=== PATIENT | male | born 1935 | race Caucasian/White ===

== ENCOUNTER 2017-08-04 16:13 | Inpatient (IN) | payer OTHER, MEDICARE ==
[~2017-08-04] VITALS: Ht 177.8 cm; Wt 86.5 kg
[~2017-08-04 16:13] MED LIST: ALUM320S3 PO; CHOL1CAP6 PO; IPRAAER INH; LORTA5 PO; OMEP20TA39 PO; PLAV75TA PO; SIMV20 PO; TAB-TAB PO; TERA2CAP3 PO; TRAM50TA PO
[2017-08-04 16:28] VITALS: BP 145/71; PULSE 63; RESP 18; TEMP 98.2; O2SAT 98
--- NOTE | 2017-08-04 16:37 | PD ---
HPI Chief Complaint: Chest Pain Time Seen by Provider: 16:33 Travel History International Travel<30 days: No Contact w/Intl Traveler<30days: No Traveled to known affect area: No History of Present Illness [facility] of [facility] (COMPUTER READ IT INFERIOR STEMI DESPITE THE FACT THAT PATIENT HAD NO COMPLAINTS AT THE TIME)... PATIENT WAS JUST GETTING ROUTINE TESTS INCLUDING EKG, SHORTLY AFTER "A LOT OF EXCITEMENT" HE FELT A MINOR DISCOMFORT WHICH HE RATED 1/10, Upon arrival to the ED pt denies CP, A&Ox3, hemoydnamically stable....UPON FURTHER QUESTIONING PATIENT DEVELOPED THIS SYMPTOMS AFTER EATING COOKIE, FELT LIKE IT WAS STUCK AT HIS MID CHEST THEN AFTER 30MIN SYMPTOMS RESOLVED [facility]CP [facility]X: CVA, HTN, HYPERCHOL, HIATAL HERNIA. PFSH Past Medical History Hx Anticoagulant Therapy: Yes Arthritis: Yes Blood Disorders: No Cancer: No Cardiovascular Problems: Yes (Pt takes Plavix at home ) Cerebrovascular Accident: Yes Coronary Artery Disease: Yes Diminished Hearing: Yes (Hard of hearing) Endocrine: No Gastrointestinal Disorders: Yes (GERD) GERD: Yes Genitourinary: Yes (BPH) Hiatal Hernia: Yes Hypertension: Yes Immune Disorder: No Musculoskeletal: Yes Neurologic: Yes (CVA 1.5 years ago ) Psychiatric: No Reproductive: No Respiratory: No Triglycerides - High: Yes ?: Not Past Surgical History Tonsillectomy: Yes Other Surgery: Yes (Hemmorhoidectomy) Social History Alcohol Use: No Tobacco Use: Yes (0.5 ppd) Substance Use: No Allergies-Medications (Allergen,Severity, Reaction): Coded Allergies: wheat (Unverified Allergy, Intermediate, Rash, 04/29/17) Reported Meds & Prescriptions Reported Meds & Active Scripts Active Reported Aluminum Hydroxide Liq Gel (Aluminum Hydroxide) 320 Mg/5 Ml Susp 640 Mg PO Q4H PRN Take after meals and at bedtime. Maximum of 3,840 mg (60 ml)/24 hrs. Vitamin D-3 (Cholecalciferol) 1,000 Unit Cap 1 Cap PO DAILY Plavix (Clopidogrel Bisulfate) 75 Mg Tab 75 Mg PO DAILY Fanshawe 5-325 Tablet (Hydrocodone/Acetaminophen) 5 Mg-325 Mg Tablet 1 Tab PO Q6HR PRN Combivent Respimat Inh (Ipratropium-Albuterol Inh) 20-100 Fpc/Act Aero 1 Puff INH QID PRN Multiple Vitamin 1 Tab 1 Tab PO DAILY Tramadol (Tramadol HCl) 50 Mg Tab 50 Mg PO TID PRN Omeprazole 20 Mg Tab 20 Mg PO BIDAC Terazosin (Terazosin HCl) 2 Mg Cap 2 Mg PO HS Simvastatin 20 Mg Tab 20 Mg PO DAILY Review of Systems Except as stated in HPI: all other systems reviewed are Neg General / Constitutional: No: Fever Eyes: No: Visual changes HENT: No: Headaches Cardiovascular: Positive: Chest Pain or Discomfort (NOW RESOLVED) Respiratory: No: Shortness of Breath Gastrointestinal: No: Abdominal Pain Genitourinary: No: Dysuria Musculoskeletal: No: Pain Skin: No Rash Neurologic: No: Weakness Psychiatric: No: Depression Endocrine: No: Polydipsia Hematologic/Lymphatic: No: Easy Bruising Physical Exam Narrative GENERAL: SKIN: Warm and dry. HEAD: Atraumatic. Normocephalic. EYES: Pupils equal and round. No scleral icterus. No injection or drainage. ENT: No nasal bleeding or discharge. Mucous membranes pink and moist. NECK: Trachea midline. No JVD. CARDIOVASCULAR: Regular rate and rhythm. RESPIRATORY: No accessory muscle use. Clear to auscultation. Breath sounds equal bilaterally. GASTROINTESTINAL: Abdomen soft, non-tender, nondistended. MUSCULOSKELETAL: Extremities without clubbing, cyanosis, or edema. No obvious deformities. NEUROLOGICAL: Awake and alert. No obvious cranial nerve deficits. Motor grossly within normal limits. Five out of 5 muscle strength in the arms and legs. Normal speech. PSYCHIATRIC: Appropriate mood and affect; insight and judgment normal. Data Data Last Documented VS Vital Signs Date Time Temp Pulse Resp B/P (MAP) Pulse Ox O2 Delivery O2 Flow Rate FiO2 08/04/17 16:50 98 Room Air 08/04/17 16:50 18 08/04/17 16:28 98.2 63 Orders Orders Electrocardiogram (08/04/17 16:33) B-Type Natriuretic Peptide (08/04/17 16:33) Ckmb (Isoenzyme) Profile (08/04/17 16:33) Complete Blood Count With Diff (08/04/17 16:33) Comprehensive Metabolic Panel (08/04/17 16:33) Prothrombin Time / Inr (Pt) (08/04/17 16:33) Act Partial Throm Time (Ptt) (08/04/17 16:33) Troponin I (08/04/17 16:33) Lipase (08/04/17 16:33) Chest, Single Ap (08/04/17 16:33) Ecg Monitoring (08/04/17 16:33) Bilateral Bp Monitoring (08/04/17 16:33) Iv Access Insert/Monitor (08/04/17 16:33) Oximetry (08/04/17 16:33) Oxygen Administration (08/04/17 16:33) Admit Order (Ed Use Only) (08/04/17 18:24) CKMB (08/04/17 18:00) CKMB% (08/04/17 18:00) Labs Laboratory Tests Test 08/04/17 16:44 08/04/17 18:00 White Blood Count 8.6 TH/MM3 Red Blood Count 4.26 MIL/MM3 Hemoglobin 12.2 GM/DL Hematocrit 37.0 % Mean Corpuscular Volume 86.8 FL Mean Corpuscular Hemoglobin 28.7 PG Mean Corpuscular Hemoglobin Concent 33.1 % Red Cell Distribution Width 15.2 % Platelet Count 288 TH/MM3 Mean Platelet Volume 8.5 FL Neutrophils (%) (Auto) 66.8 % Lymphocytes (%) (Auto) 25.5 % Monocytes (%) (Auto) 6.1 % Eosinophils (%) (Auto) 1.1 % Basophils (%) (Auto) 0.5 % Neutrophils # (Auto) 5.8 TH/MM3 Lymphocytes # (Auto) 2.2 TH/MM3 Monocytes # (Auto) 0.5 TH/MM3 Eosinophils # (Auto) 0.1 TH/MM3 Basophils # (Auto) 0.0 TH/MM3 CBC Comment DIFF FINAL Differential Comment B-Type Natriuretic Peptide 38 PG/ML Blood Urea Nitrogen 14 MG/DL Creatinine 1.31 MG/DL Random Glucose 92 MG/DL Total Protein 7.7 GM/DL Albumin 3.3 GM/DL Calcium Level 8.7 MG/DL Alkaline Phosphatase 71 U/L Aspartate Amino Transf (AST/SGOT) 64 U/L Alanine Aminotransferase (ALT/SGPT) 28 U/L Total Bilirubin 0.7 MG/DL Sodium Level 139 MEQ/L Potassium Level 5.1 MEQ/L Chloride Level 110 MEQ/L Carbon Dioxide Level 22.5 MEQ/L Anion Gap 7 MEQ/L Estimat Glomerular Filtration Rate 52 ML/MIN Total Creatine Kinase 338 U/L Creatine Kinase MB 12.1 NG/ML Creatine Kinase MB % 3.6 % Troponin I 1.79 NG/ML Lipase 35 U/L MDM Medical Decision Making Medical Screen Exam Complete: Yes Emergency Medical Condition: Yes Medical Record Reviewed: Yes Interpretation(s) NSR, 68, ST DEPRESSION ON I/AVL, NO STEMI PATTERN Differential Diagnosis STEMI V NONSTEMI V PNA V PTX V Narrative Course FIRST SET OF CARDIAC ENZYMES POSITIVE, EKG ABNL FINDINGS REQUIRING FURTHER INVESTIGATION, PATIENT WILL BE ADMITTED TO [facility] FOR FURTHER CARE AND EVALUATION. Diagnosis Primary Impression: Non-STEMI (non-ST elevated myocardial infarction) Admitting Information Admitting Physician Requests: Admit Daquan Dougherty MD Aug 04, 2017 16:37
[2017-08-04 16:50] VITALS: RESP 18; O2SAT 98
--- NOTE | 2017-08-04 16:59 | RADRPT ---
EXAM DATE/TIME: 08/04/2017 16:35 [place] COMPARISON: No previous studies available for comparison. INDICATIONS : Chest pain MEDICAL HISTORY : Cardiovascular disease. SURGICAL HISTORY : None. ENCOUNTER: Initial ACUITY: 2 days PAIN SCORE: 2/10 LOCATION: chest FINDINGS: A single view of the chest demonstrates the lungs to be symmetrically aerated without evidence of mas s, infiltrate or effusion. The cardiomediastinal contours are unremarkable. Osseous structures are intact. CONCLUSION: No acute disease. Matteo Zavala Jr., MD on August 04, 2017 at 16:58 Board Certified Radiologist. This report was verified electronically.
[2017-08-04 17:02] LABS: AUTOMATED NEUTROPHIL # 5.8 TH/MM3 (1.8-7.7); BASOPHIL % 0.5 % (0.0-2.0); EOSINOPHIL # 0.1 TH/MM3 (0-0.4); EOSINOPHIL % 1.1 % (0.0-4.0); HEMO FLAGS DIFF FINAL; LYMPH % 25.5 % (9.0-44.0); LYMPHOCYTE # 2.2 TH/MM3 (1.0-4.8); MEAN CELL VOLUME 86.8 FL (80.0-100.0); MEAN CORPUSCULAR HEMOGLOBIN 28.7 PG (27.0-34.0); MEAN CORPUSCULAR HGB CONC 33.1 % (32.0-36.0); MONO % 6.1 % (0.0-8.0); NEUT % 66.8 % (16.0-70.0); PLATELET COUNT 288 TH/MM3 (150-450); RED BLOOD COUNT 4.26 MIL/MM3 (4.50-5.90); RED CELL DISTRIBUTION WIDTH 15.2 % (11.6-17.2); WHITE BLOOD COUNT 8.6 TH/MM3 (4.0-11.0)
[2017-08-04 19:10] VITALS: O2SAT 97
[2017-08-04] MEDS ORDERED: SODIUM CHLORIDE 0.9% FLUSH 10 ML FLUSH IV FLUSH PRN ×2 (19:15→22:15)
[2017-08-04] MEDS ORDERED: ASPIRIN 81 MG CHEW TAB PO ONE (19:15)
[2017-08-04 19:31] VITALS: BP 121/67; PULSE 55; RESP 22; TEMP 97.4; O2SAT 97
[2017-08-04 20:19] LABS: APTT (PATIENT) 24.4 SEC (24.3-30.1); INTERNATIONAL NORMALIZED RATIO 1.1 RATIO; PROTHROMBIN TIME - PATIENT 11.9 SEC (9.8-11.6)
[2017-08-04 20:25] LABS: ALKALINE PHOSPHATASE 71 U/L (45-117); ALT (GPT) 28 U/L (12-78); ANION GAP 7 MEQ/L (5-15); BICARBONATE 22.5 MEQ/L (21.0-32.0); BLOOD UREA NITROGEN 14 MG/DL (7-18); CHLORIDE 110 MEQ/L (98-107); CREATINE KINASE 338 U/L (39-308); GLOMERULAR FILTRATION RATE 52 ML/MIN (>89); SODIUM (NA) 139 MEQ/L (136-145); TOTAL BILIRUBIN ADULT 0.7 MG/DL (0.2-1.0)
[2017-08-04 20:27] LABS: AST (GOT) 64 U/L (15-37); POTASSIUM 5.1 MEQ/L (3.5-5.1)
[2017-08-04 20:42] LABS: CKMB 12.1 NG/ML (0.5-3.6)
[2017-08-04] MEDS ORDERED: SODIUM CHLORIDE 0.9% FLUSH 10 ML FLUSH IV FLUSH SCH (21:00)
[2017-08-04] MEDS ORDERED: HEPARIN-D5W 25,000 U/250 ML 250 ML IV PRN (22:15)
[2017-08-04] MEDS ORDERED: HEPARIN SODIUM - IV 10,000 UNITS/10 ML VIAL IV PUSH ONE (22:15)
--- NOTE | 2017-08-04 22:48 | HHI.HP ---
[facility] Admission Diagnosis CP R/O IA Diagnoses: Travel History International Travel<30 Days: No Contact w/Intl Traveler <30 Da: No Traveled to Known Affected Are: No History of Present Illness 82-year-old male with a past medical history of arthritis, CVA on Plavix, hyperlipidemia, GERD, BPH presents with a three-day history of chest pressure and tightness. The patient was waiting for his hearing aids at the [place] when he noticed his chest pressure returning. EKG done at that time was read by the computer as acute IA with ST elevation. On review, EKG significant for ST depression in aVL without ST elevations. Initial troponin came back elevated at 1.79. The patient is not having active chest pain and states his chest pain was resolved prior to his arrival in the ED. He reports his chest pain is postprandial in nature and he thought it was secondary to his hiatal hernia. Repeat EKG significant for ST depression in leads I, aVL. Second troponin increased to 2.87. The patient denies any complaints at this time including chest pain or shortness of breath. Review of Systems Denies fever or chills Denies blurry vision, otorrhea, rhinorrhea Denies sore throat and cough No chest pain, palpitations, shortness of breath No abdominal pain Denies constipation/diarrhea/nausea/vomiting Denies muscle pain/weakness No rashes Past Family Social History Past Medical History Hyperlipidemia History of CVA on Plavix BPH GERD COPD Osteoarthritis Past Surgical History Tonsillectomy in childhood Carotid endarterectomy Reported Medications Reported Meds & Active Scripts Active Allergies: Coded Allergies: wheat (Unverified Allergy, Intermediate, Rash, 04/29/17) Family History Father of liver cancer. No family history of diabetes or coronary artery disease. Social History Smokes a half a pack per day 70 years. Denies alcohol or illicit drugs. Physical Exam Vital Signs Vital Signs Date Time Temp Pulse Resp B/P (MAP) Pulse Ox O2 Delivery O2 Flow Rate FiO2 08/04/17 19:31 97.4 55 22 121/67 (85) 97 08/04/17 19:28 08/04/17 19:10 97 08/04/17 16:50 98 Room Air 08/04/17 16:50 18 98 Room Air 08/04/17 16:28 98.2 63 18 145/71 (95) 98 Room Air 08/04/17 16:28 61 18 98 Room Air Physical Exam GENERAL: Elderly male sitting up in bed. SKIN: No rashes, ecchymoses or lesions. Cool and dry. HEAD: Atraumatic. Normocephalic. No temporal or scalp tenderness. EYES: Pupils equal round and reactive. Extraocular motions intact. No scleral icterus. No injection or drainage. ENT: Nose without bleeding, purulent drainage or septal hematoma. Throat without erythema, tonsillar hypertrophy or exudate. Uvula midline. Airway patent. NECK: Trachea midline. No JVD or lymphadenopathy. Supple, nontender, no meningeal signs. CARDIOVASCULAR: Regular rate and rhythm without murmurs, gallops, or rubs. RESPIRATORY: Clear to auscultation. Breath sounds equal bilaterally. No wheezes , rales, or rhonchi. GASTROINTESTINAL: Abdomen soft, non-tender, nondistended. No hepato-splenomegaly , or palpable masses. No guarding. MUSCULOSKELETAL: Extremities without clubbing, cyanosis, or edema. No joint tenderness, effusion, or edema noted. No calf tenderness. Negative Homans sign bilaterally. NEUROLOGICAL: Awake and alert. Cranial nerves II through XII intact. Motor and sensory grossly within normal limits. Normal speech. Laboratory Laboratory Tests Test 08/04/17 16:44 08/04/17 18:00 08/04/17 19:00 08/04/17 19:50 White Blood Count 8.6 Red Blood Count 4.26 Hemoglobin 12.2 Hematocrit 37.0 Mean Corpuscular Volume 86.8 Mean Corpuscular Hemoglobin 28.7 Mean Corpuscular Hemoglobin Concent 33.1 Red Cell Distribution Width 15.2 Platelet Count 288 Mean Platelet Volume 8.5 Neutrophils (%) (Auto) 66.8 Lymphocytes (%) (Auto) 25.5 Monocytes (%) (Auto) 6.1 Eosinophils (%) (Auto) 1.1 Basophils (%) (Auto) 0.5 Neutrophils # (Auto) 5.8 Lymphocytes # (Auto) 2.2 Monocytes # (Auto) 0.5 Eosinophils # (Auto) 0.1 Basophils # (Auto) 0.0 CBC Comment DIFF FINAL Differential Comment B-Type Natriuretic Peptide 38 Blood Urea Nitrogen 14 Creatinine 1.31 Random Glucose 92 Total Protein 7.7 Albumin 3.3 Calcium Level 8.7 Alkaline Phosphatase 71 Aspartate Amino Transf (AST/SGOT) 64 Alanine Aminotransferase (ALT/SGPT) 28 Total Bilirubin 0.7 Sodium Level 139 Potassium Level 5.1 Chloride Level 110 Carbon Dioxide Level 22.5 Anion Gap 7 Estimat Glomerular Filtration Rate 52 Total Creatine Kinase 338 294 Creatine Kinase MB 12.1 Creatine Kinase MB % 3.6 Troponin I 1.79 2.87 Lipase 35 Prothrombin Time 11.9 Prothromb Time International Ratio 1.1 Activated Partial Thromboplast Time 24.4 Result Diagram: 08/04/17 1644 08/04/17 1800 Giovany VTE Risk Assessment Giovany VTE Risk Assessment: Mod/High Risk (score >= 2) Caprini Risk Assessment Model Point Value = 1 Point Value = 2 Point Value = 3 Point Value = 5 Age 41-60 Minor surgery BMI > 25 kg/m2 Swollen legs Varicose veins or History of unexplained or recurrent spontaneous Oral contraceptives or hormone replacement Sepsis (< 1 month) Serious lung disease, including pneumonia (< 1 month) Abnormal pulmonary function Acute myocardial infarction Congestive heart failure (< 1 month) History of inflammatory bowel disease Medical patient at bed rest Age 61-74 Arthroscopic surgery Major open surgery (> 45 min) Laparoscopic surgery (> 45 min) Malignancy Confined to bed (> 72 hours) Immobilizing plaster cast Central venous access Age >= 75 History of VTE Family history of VTE Factor V Leiden Prothrombin [id number] Lupus anticoagulant Anticardiolipin antibodies Elevated serum homocysteine Heparin-induced thrombocytopenia Other congenital or acquired thrombophilia Stroke (< 1 month) Elective arthroplasty Hip, pelvis, or leg fracture Acute spinal cord injury (< 1 month) Prophylaxis Regimen Total Risk Factor Score Risk Level Prophylaxis Regimen 0-1 Low Early ambulation 2 Moderate Order ONE of the following: *Sequential Compression Device (SCD) *Heparin 5000 units SQ BID 3-4 Higher Order ONE of the following medications: *Heparin 5000 units SQ TID *Enoxaparin/Lovenox 40 mg SQ daily (WT < 150 kg, CrCl > 30 mL/min) *Enoxaparin/Lovenox 30 mg SQ daily (WT < 150 kg, CrCl > 10-29 mL/min) *Enoxaparin/Lovenox 30 mg SQ BID (WT < 150 kg, CrCl > 30 mL/min) AND/OR *Sequential Compression Device (SCD) 5 or more Highest Order ONE of the following medications: *Heparin 5000 units SQ TID (Preferred with Epidurals) *Enoxaparin/Lovenox 40 mg SQ daily (WT < 150 kg, CrCl > 30 mL/min) *Enoxaparin/Lovenox 30 mg SQ daily (WT < 150 kg, CrCl > 10-29 mL/min) *Enoxaparin/Lovenox 30 mg SQ BID (WT < 150 kg, CrCl > 30 mL/min) AND *Sequential Compression Device (SCD) Assessment and Plan Assessment and Plan 82-year-old male presents to the emergency department with chest pain and elevated troponins. 1. NSTEMI Cardiology consulted, appreciate recommendations Repeat EKG showed ST segment depressions in leads I, aVL - reviewed by me Heparin drip Metoprolol Nothing by mouth 2. CKD Creatinine 1.31, baseline 1.2-1.3 Monitor 3. History of CVA anticoagulated on Plavix Hold Plavix in anticipation of Cardiac catheterization tomorrow Heparin as above 4. HLD/BPH/GERD Continue home medications FEN NPO Electrolytes: monitor and replete prn Heparin ggt Physician Certification 2 Midnight Certification Type: Admission for Inpatient Services Order for Inpatient Services The services are ordered in accordance with Medicare regulations or non- Medicare payer requirements, as applicable. In the case of services not specified as inpatient-only, they are appropriately provided as inpatient services in accordance with the 2-midnight benchmark. Estimated LOS (days): 2 2 days is the estimated time the patient will need to remain in the hospital, assuming treatment plan goals are met and no additional complications. Post-Hospital Plan: Not yet determined Rosa Coulter MD Aug 04, 2017 22:48
[2017-08-04 23:00] VITALS: PULSE 71; PULSE 98
[2017-08-04] MEDS ORDERED: TERA2CAP3 PO (23:04)
[2017-08-04] MEDS ORDERED: MULTTAB67 PO (23:04)
[2017-08-04] MEDS ORDERED: PLAV75TA29 PO (23:04)
[2017-08-04] MEDS ORDERED: IPRAAER INH (23:04)
[2017-08-04] MEDS ORDERED: D31000CA3 PO (23:04)
[2017-08-04] MEDS ORDERED: NORC5TAB PO (23:04)
[2017-08-04] MEDS ORDERED: TRAM50TA PO (23:04)
[2017-08-04] MEDS ORDERED: ALUM320S2 PO (23:04)
[2017-08-04] MEDS ORDERED: SIMV20TA PO (23:04)
[2017-08-04] MEDS ORDERED: OMEP20TA93 PO (23:04)
[2017-08-04] MEDS ORDERED: HEPARIN 25,000 UNITS-D5W 250 ML - PREMIX IV PRN (23:45)
[2017-08-04 23:51] VITALS: BP 106/61; PULSE 62; RESP 22; TEMP 97.4; O2SAT 95
[2017-08-05] VITALS (27 sets, daily range): BP systolic 101–153; BP diastolic 57–92; PULSE 48–79; RESP 17–20; TEMP 97.7–98.2; O2SAT 93–97
[2017-08-05 00:32] LABS: CKMB 35.1 NG/ML (0.5-3.6)
[2017-08-05] MEDS ORDERED: HEPARIN SODIUM - IV 10,000 UNITS/10 ML VIAL IV PUSH PRN ×2 (04:15)
[2017-08-05 05:52] LABS: APTT (PATIENT) 59.2 SEC (24.3-30.1); INTERNATIONAL NORMALIZED RATIO 1.1 RATIO; PROTHROMBIN TIME - PATIENT 12.6 SEC (9.8-11.6)
[2017-08-05 05:54] LABS: HEMATOCRIT 34.3 % (39.0-51.0); MEAN CELL VOLUME 86.5 FL (80.0-100.0); MEAN CORPUSCULAR HEMOGLOBIN 28.7 PG (27.0-34.0); MEAN CORPUSCULAR HGB CONC 33.1 % (32.0-36.0); PLATELET COUNT 234 TH/MM3 (150-450); RED BLOOD COUNT 3.96 MIL/MM3 (4.50-5.90); RED CELL DISTRIBUTION WIDTH 15.2 % (11.6-17.2); REVIEW FLAG FINAL; WHITE BLOOD COUNT 8.9 TH/MM3 (4.0-11.0)
--- NOTE | 2017-08-05 07:26 | EKG ---
Date Performed: 08/04/2017 Time Performed: 19:49:23 PTAGE: 82 years EKG: SINUS BRADYCARDIA MINIMAL ST DEPRESSION BORDERLINE ECG Since PREVIOUS TRACING , no significant change noted PREVIOUS TRACIN08/04/2017 16.22 DOCTOR: Chanelle Lozada Interpretating Date/Time 08/05/2017 07:25:08
[2017-08-05] MEDS: PANTOPRAZOLE SOD 20 MG DELAYED RELEASE TAB PO SCH ×2 (08:07→17:38)
[2017-08-05] MEDS: METOPROLOL TARTRATE 25 MG TAB PO SCH ×2 (08:07→21:00)
[2017-08-05] MEDS ORDERED: SODIUM CHLORIDE 0.9% FLUSH 10 ML FLUSH IV FLUSH SCH (09:00)
[2017-08-05] MEDS ORDERED: PRAVASTATIN SOD 40 MG TAB PO SCH (09:00)
--- NOTE | 2017-08-05 11:00 | HHI.PR ---
Subjective Remarks Nursing denies any deterioration since last night. The patient states that he is chest pain-free. No nausea vomiting. Objective Vital Signs Date Time Temp Pulse Resp B/P (MAP) Pulse Ox O2 Delivery O2 Flow Rate FiO2 08/05/17 08:00 97.8 54 17 102/62 (75) 95 08/05/17 07:00 49 08/05/17 06:00 52 08/05/17 05:00 58 08/05/17 04:50 98.0 54 18 110/68 (82) 95 08/05/17 04:00 52 08/05/17 03:00 50 08/05/17 02:00 57 08/05/17 01:12 97.7 54 20 120/76 (91) 95 08/05/17 01:00 55 08/05/17 00:00 54 08/04/17 23:51 97.4 62 22 106/61 (76) 95 08/04/17 23:00 71 08/04/17 23:00 98 08/04/17 19:31 97.4 55 22 121/67 (85) 97 08/04/17 19:28 08/04/17 19:10 97 08/04/17 16:50 98 Room Air 08/04/17 16:50 18 98 Room Air 08/04/17 16:28 98.2 63 18 145/71 (95) 98 Room Air 08/04/17 16:28 61 18 98 Room Air I/O 08/04/17 08/04/17 08/04/17 08/05/17 08/05/17 08/05/17 07:00 15:00 23:00 07:00 15:00 23:00 Intake Total 150 ml Output Total 150 ml Balance 0 ml Intake Oral 100 ml IV Total 50 ml Output Urine Total 150 ml Result Diagram: 08/05/17 0445 08/04/17 1800 Objective Remarks Very faint heart sounds, clear lungs bilaterally otherwise, no cyanosis, no clubbing, no labored breathing A/P Assessment and Plan 82-year-old male presents to the emergency department with chest pain and elevated troponins. 1. NSTEMI Cardiology following, plans for catheterization today, continue Lopressor and aspirin and statin heparin 2. CKD Creatinine 1.31, baseline 1.2-1.3 stable 3. History of CVA anticoagulated on Plavix Hold Plavix in anticipation of Cardiac catheterization today Heparin as above 4. HLD/BPH/GERD Continue home medications FEN NPO Electrolytes: monitor and replete prn Heparin ggt Fidel Umana MD Aug 05, 2017 11:00
[2017-08-05] MEDS: ATORVASTATIN 40 MG TAB PO SCH (11:48)
[2017-08-05] MEDS ORDERED: HEPARIN-NS/PF INJ 1,500 ML ONE (13:01)
[2017-08-05] MEDS ORDERED: MIDAZOLAM HCL 2 MG/2 ML VIAL ONE (13:01)
[2017-08-05] MEDS ORDERED: VERAPAMIL HCL 5 MG/2 ML VIAL ONE (13:01)
[2017-08-05] MEDS ORDERED: HEPARIN SODIUM - IV 10,000 UNITS/10 ML VIAL ONE (13:01)
[2017-08-05] MEDS ORDERED: NITROGLYCERIN INJ 5 ML ONE (13:01)
--- NOTE | 2017-08-05 13:56 | CATHPROC ---
[facility] HIS Report Study Information Study Number Admission Scheduled Start Study Start [id number] Aug 04 2017 10:09PM 08/05/2017 Aug 05 2017 12:54PM [place] [facility] Cardiac Catheterization Admit Source Facility Department Emergency department [facility] Physician and Clinical Staff Initial MD Sue, Carlos Electronics System Mechanicramon Reynaga RN, Tunde Electronics System MechanicMartha Teresa BSN Recorder Radha Canchola,KAREN TECHWero Scrub [place]la [place],RT(R) Procedures Performed Procedure Location (Site) Vessel Name Coronary Angiograms LCA Left Coronary Coronary Angiograms RCA Right Coronary Equipment Time Geophysics Professor Description Size Mfg Part Number Used/Scraped TRANSDUCER, TRUWAVE [id number] 12:57 BELL PEREYRA * Used W/STOCKCOCK *[id number] *[id number] *[id number] 12:57 Hively PACK, CCL CUSTOM * Used *[id number] 12:57 Hively SUPPORT, ARTERIAL ADULT 26471 *[id number] Used BAND, RADIAL COMPRESSION TR [id number] 13:33 [employer] MEDICAL 24CM Used SHORT 24 *[id number] 12:57 [employer] WIRE, EXCHANGE 260CM 3MMJ 260CM Used *[id number] 12:57 NAMIC MANIFOLD, 4 PORT * Used *[id number] 12:57 NYCOMED OMNIPAQUE, 350 MG, 150ML 150ML [id number] Used [id number] 12:57 [employer] BLANKET,WARM AIR CCL * Used *[id number] SHEATH, FR6 TRANSRADIAL [id number] 12:57 [employer] MEDICAL FR 6 Used SLENDER 10CM *[id number] History: Allergies Allergy Reaction wheat Rash History: Risk Factors Family History of Hypertension Dyslipidemia Previous ME Previous Heart Failure Premature CAD Yes Yes No No No Prior Valve Prior PCI Prior CABG Surgery No No No Cerebrovascular Peripheral Artery Chronic Lung On Dialysis Diabetes Disease Disease Disease No Yes No No No History: Symptoms/Diagnosis Selection Items Chest pain History: Stress Tests Stress or Imaging Studies Performed No History: Other Disease Selection Items Gerd History: Other Current Smoker Method Packs a Day Years Used Pack Years Yes Cigarettes 1 70 70 Labs Hgb (g/dl) Hct (%) RBC (MIL/MM3) WBC (l/cumm) Platelets (thousands) 11.60-17.00 35.00-51.00 4.00-5.90 4.00-11.00 150.00-450.00 12.2 37 4.2 8.6 288 Glucose (mg/dl) BUN (mg/dl) Creatinine (mg/dl) BUN:Creatinine (1:x) 74.00-106.00 7.00-18.00 0.50-1.30 10.00-20.00 92 14 1.3 10.8 Na (meq/l) K (meq/l) Cl (meq/l) CO2 (mmol/L) 136.00-145.00 3.50-5.10 98.00-107.00 21.00-32.00 139 5.1 110 22.5 PT (sec) PTT (sec) INR (PTT:PT) 9.80-11.60 24.30-30.10 0.90-1.10 11.9 24.4 1.1 Troponin I (ng/ml) CPK (u/l) CPK-MB (ng/ML) 0.02-0.05 26.00-308.00 0.50-3.60 14.1 474 35.1 Medication Medication Total Dose (Bolus/Oral) Medication Total Dosage/Unit 1% XYLOCAINE 20 mL FENTANYL 25 mcg OXYGEN 2 l/min RADIAL COCKTAIL 5 mL (Bolus) VERSED 0.5 mg Medications (Bolus/Oral) Medication Time Given Dosage/Unit Administered By Reason FENTANYL 08/05/2017 1:19:13 PM 25 mcg Tunde Reynaga RN 25 mcg FENTANYL given in lab by Tunde Reynaga RN in Left Forearm via Peripheral IV. Ordered by Carlos Denise VERSED 08/05/2017 1:20:25 PM 0.5 mg Tunde Reynaga RN 0.5 mg VERSED given in lab by Tunde Reynaga RN in Left Forearm via Peripheral IV. Ordered by Carlos Sue 1% XYLOCAINE 08/05/2017 1:21:06 PM 20 mL Carlos Sue 20 mL 1% XYLOCAINE given in lab by Carlos Sue in Right Radial via Subcutaneous. Ordered by Carlos Ortiz RADIAL COCKTAIL 08/05/2017 1:21:45 PM 5 mL (Bolus) Carlos Sue 5 mL (Bolus) RADIAL COCKTAIL given in lab by Carlos Sue in Right Radial via Radial. Using [S olution Name]. Ordered by Carlos Sue NTG 200mcg, Verapamil 2.5mg, Heparin 3400 Units OXYGEN 08/05/2017 1:29:54 PM 2 l/min Tunde Reynaga RN 2 l/min OXYGEN given in lab by Tunde Reynaga RN via Nasal. Ordered by Carlos Sue Medication (Drip) Medication Time Given Dosage/Unit Concentration/Unit Diluent (ml) Solution 08/05/2017 12:54:16 IV Solutions 0 mL (IV) 500 NaCl .9 PM IV Solutions given in lab by Tunde Reynaga RN in Left Forearm via Peripheral IV. Pump/Drip Flow = 20 m l/hr using NaCl .9. Ordered by Carlos Sue Initial Case Assessment Cardiovascular HR Rhythm NIBP Chest Pain 66 sr 160/84 0 Circulatory - Right Pulses Dorsalis Pedis Femoral Radial 2 2 2 Scale (0,1,2,3,4,d) Scale (0,1,2,3,4,d) Neurological State Oriented to time-place- Alert Moves all extremities person Respiration - General Respiration Rate SpO2 (%) (B/min) 20 99 Final Case Assessment Cardiovascular HR Rhythm NIBP Chest Pain 55 sr 109/63 0 Circulatory - Right Pulses Dorsalis Pedis Femoral Radial 2 2 2 Scale (0,1,2,3,4,d) Scale (0,1,2,3,4,d) Neurological State Oriented to time-place- Alert Moves all extremities person Respiration - General Respiration Rate (B/min) 16 Chronological Log Time Study Chronological Log 12:54:00 Patient arrived via Bed. 12:54:01 Patient Name, D.O.B, / Armband Verified By R.N. Vitals capture started with the following parameters, Patient=Adult, Interval=5 min, Initial Pr cbzhgc=299 mmHg, 12:54:03 Deflation Rate=5 mmHg, Cuff placed on Left Arm 12:54:04 Consent signed by the physician and the patient and verified by the [facility] staff. 12:54:05 Pre-op and post- op instructions given; patient acknowledges understanding of instructions. 12:54:05 Verbal Stimulation=2 Physical Stimulation=2 Airway=2 Respiration=2 TOTAL=8. (0=absent, 1=li mited, 2=present) 12:54:06 Presedation assessment performed by [facility] RN. 12:54:07 Allens test performed on the right radial and ulnar artery. 12:54:08 Immediate Presedation assesment performed by physician. 12:54:09 Patient has been NPO for More than 6Hrs. 12:54:10 Skin Breakdown-none 12:54:10 Patient Warmer Placed on the Table. 12:54:11 Trey Prominences Protected 12:54:15 A # 20 IV was noted in the Forearm (left). Grade = patent IV Solutions given in lab by Tunde Reynaga RN in Left Forearm via Peripheral IV. Pump/Drip Flow = 20 ml/hr using NaCl .9. 12:54:16 Ordered by Carlos Sue 12:54:17 History and physical on the chart or being dictated. 12:54:22 Reference ECG taken 12:55:25 HR=66 bpm, THLR=300/84 mmhg, SpO2=99.0 %, Resp=20 B/min, Pain=0, Chelsi=10, Yost=2 Assessment: Initial Case, HR=66 BPM, Rhythm=sr, BQRU=952/84 mmhg, Chest Pain=0 Right Pulses: Celso Ped=2, Femoral=2, Radial=2 12:55:58 Neurological: State=Alert, Ox3, ADAM Respiration: Resp=20 B/min, SpO2=99 % 13:00:30 HR=57 bpm, AHXS=431/77 mmhg, SpO2=97.0 %, Resp=19 B/min, Pain=0, Chelsi=10, Yost=2 13:05:25 HR=59 bpm, DKGF=071/84 mmhg, SpO2=97.0 %, Resp=19 B/min, Pain=0, Chelsi=10, Yost=2 13:08:37 Pressure channel 1 zeroed. 13:09:45 HR=61 bpm, QZWX=727/83 mmhg, SpO2=94.0 %, Resp=21 B/min 13:14:01 MD arrived. 13:14:42 HR=61 bpm, JPZF=863/84 mmhg, SpO2=94.0 %, Resp=19 B/min 13:19:13 25 mcg FENTANYL given in lab by Tunde Reynaga RN in Left Forearm via Peripheral IV. Ordered by Carlos Sue Time Out. Correct patient, correct procedure, correct physician, power injector not loaded with contrast with surgical 13:19:18 team present. Time Out Concurred by MD and individual staff in procedure. 13:19:41 HR=61 bpm, QMON=702/83 mmhg, SpO2=96.0 %, Resp=20 B/min 13:20:25 0.5 mg VERSED given in lab by Tunde Reynaga RN in Left Forearm via Peripheral IV. Ordered by Carlos Sue 13:21:04 Case Start 20 mL 1% XYLOCAINE given in lab by Carlos Sue in Right Radial via Subcutaneous. Ordere d by Vikram, 13:21:06 Carlos Olson 13:21:15 Access site was Radial Artery. A SHEATH, FR6 TRANSRADIAL SLENDER 10CM FR 6 was advanced into the Fem Art (right) using the Per cutaneous 13::26 technique. 5 mL (Bolus) RADIAL COCKTAIL given in lab by Carlos Sue in Right Radial via Radial. Us ing [Solution Name]. 13:21:45 Ordered by Carlos Sue. NTG 200mcg, Verapamil 2.5mg, Heparin 3400 Units A JR 4.0 INFINITI CATHETER FR 5 was advanced over a wire. OMNIPAQUE, 350 MG, 150ML 150ML was us ed for 13:22:53 injections. Recorded Pressure: LV, HR=66, Condition=Condition 1 13:24:32 (Left Ventricle) LV 123/7/18 Recorded Pressure: LV, Ao, HR=64, Condition=Condition 1 13:24:43 (Left Ventricle) LV 120/6/12, (Aorta) Ao 115/61/81 13:24:46 HR=63 bpm, CXOD=982/60 mmhg, SpO2=92 %, Resp=19 B/min 13:26:59 The RCA was injected and visualized at various angles. OMNIPAQUE, 350 MG, 150ML 150ML used . After removing the current catheter a JL 3.5 INFINITI CATHETER FR 5 was advanced over a WIRE, E XCHANGE 260CM 13:28:59 3MMJ 260CM. 13:29:41 HR=56 bpm, ZEJC=939/61 mmhg, SpO2=88.0 %, Resp=18 B/min 13:29:54 2 l/min OXYGEN given in lab by Tunde Reynaga RN via Nasal. Ordered by Carlos Sue 13:31:49 The LCA was injected and visualized at various angles. OMNIPAQUE, 350 MG, 150ML 150ML use d. 13:32:43 Catheter was removed 13:34:36 HR=57 bpm, ACZI=056/67 mmhg, Resp=19 B/min, Pain=0, Chelsi=10, Yost=2 13:35:15 Case End Radial Compression Device Used. 9 mLs of air placed in BAND, RADIAL COMPRESSION TR SHORT 24 24 CM. Affected 13:36:40 hand 93 % O2 saturation. 13:39:41 HR=55 bpm, MQTE=841/63 mmhg, Resp=13 B/min, Pain=0, Chelsi=10, Yost=2 Assessment: Final Case, HR=55 BPM, Rhythm=sr, IENW=737/63 mmhg, Chest Pain=0 Right Pulses: Celso Ped=2, Femoral=2, Radial=2 13:40:06 Neurological: State=Alert, Ox3, ADAM Respiration: Resp=16 B/min 13:43:44 No case complications noted. 13:43:46 Patient moved to bed 13:43:56 Cine recording checked. 13:43:56 Patient transported to [facility] 13:44:05 Bedside Report will be given. 13:44:24 Vitals capture stopped. End Study - Contrast Media Used In Study Contrast Total Opened (mL) Total Used (mL) Total Wasted (mL) Omnipaque 30 30 0 End Study - Maximum Contrast Load Max Contrast Load (mL) 323.1 End Study - Radiation Exposure Fluoro Time (minutes) 3.8 End Study - Sheaths Sheaths Pulled By Sheath Hold Time (min) [place] End Study - Patient Disposition Complications Transferred To Interventional Outcome No Telemetry Bed No attempt made
[2017-08-05] MEDS ORDERED: MISC INFORMATION XX ONE (14:00)
[2017-08-05] MEDS ORDERED: SODIUM CHLORIDE 0.9% FLUSH 10 ML FLUSH IV FLUSH PRN (14:45)
[2017-08-05] MEDS ORDERED: IOHEXOL 350 MG/ML 50 ML BTL (for Cath Lab) OTHER ONE (14:59)
--- NOTE | 2017-08-05 15:00 | MA ---
cc: CARLOS SOMMERS DO DATE: 08/05/2017 PROCEDURE Left heart catheterization, coronary angiogram, moderate sedation 15 minutes PREPROCEDURE DIAGNOSIS NSTEMI, chest pain. POSTPROCEDURE DIAGNOSIS Multivessel coronary artery disease for consideration of CT surgery versus medical management. MEDICATIONS Fentanyl 25 mcg, Versed 0.5 mg, nitro 200 mcg, verapamil 2.5 mg, heparin 3400 units. CONTRAST USED 30 cc. FLUORO TIME 3.8 minutes. SEDATION Moderate sedation of 15 minutes. ESTIMATED BLOOD LOSS 10 cc. PROCEDURAL SUMMARY Leandro Burns is a pleasant 82-year-old male who presented with chest pain and was found to have an elevated troponin and because of this recommended cardiac catheterization. The risks, benefits and alternatives were explained to him and he consented as such. He was brought to the lab and prepped in the usual sterile fashion. The right radial artery was accessed using a modified Seldinger technique with placement of a 5/6 Spanish Slender sheath. This was easily aspirated and flushed. A JR4 was advanced over a J-wire to the ascending aorta and across the aortic valve for measurement of left ventricular pressure. This was pulled back across the aortic valve showing no significant gradient of aortic stenosis. The JR4 was used for selective angiography of the right coronary artery. This was exchanged out for a JL 3.5 which was used for selective angiography of the left coronary artery system. The JL 3.5 was removed over a J-wire. 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 FINDINGS Left Main: Normal size vessel with adequate reflux and 80% stenosis at the distal portion before bifurcating into an LAD and circumflex. LAD: Overall small vessel with diffuse 50% disease throughout the proximal portion. It gives off one major diagonal which has 70% disease in the proximal portion. Left Circumflex: Normal size vessel with mild luminal irregularities throughout the proximal portion. It gives off one obtuse marginal with no significant disease. Right Coronary Artery: Normal size vessel with a 60-70% stenosis in the proximal to midportion, a 70% stenosis in the mid to distal portion, and a 95% stenosis in the distal portion before giving off a PDA and PLV. LVEDP 12. IMPRESSIONS 1. Chest pain concerning for coronary insufficiency. 2. NSTEMI. 3. Multivessel coronary artery disease. Mr. Burns appears to have multivessel coronary artery disease and presented with an NSTEMI. At this time the patient is currently chest pain free and hemodynamically stable. RECOMMENDATIONS 1. He will be seen by cardiothoracic surgery for consideration of coronary artery bypass grafting. 2. Will check a 2-D echo to look at his overall left ventricular function, cardiac structure and possible valvulopathies. 3. If he decides against coronary artery bypass grafting or is not a candidate will discuss with him further, but most likely medical management. Thank you for allowing me to see Leandro Burns. If there are any questions, please do not hesitate to call. Carlos Sommers DO VGP/BT /1:54 PM /2:45 PM
[2017-08-05 15:52] LABS: APTT (PATIENT) 56.6 SEC (24.3-30.1)
--- NOTE | 2017-08-05 16:51 | EKG ---
Date Performed: 08/04/2017 Time Performed: 22:53:12 PTAGE: 82 years EKG: SINUS BRADYCARDIA BORDERLINE ECG Since PREVIOUS TRACING , no significant change noted PREVIOUS TRACIN08/04/2017 19.49 DOCTOR: Chanelle Lozada Interpretating Date/Time 08/05/2017 16:51:22
--- NOTE | 2017-08-05 16:51 | EKG ---
Date Performed: 08/04/2017 Time Performed: 16:22:28 PTAGE: 82 years EKG: Sinus rhythm MODERATE ST DEPRESSION ABNORMAL ECG NO PREVIOUS TRACING DOCTOR: Chanelle Lozada Interpretating Date/Time 08/05/2017 16:50:24
--- NOTE | 2017-08-05 17:02 | RADRPT ---
EXAM DATE/TIME: 08/05/2017 16:16 [facility] COMPARISON: No previous studies available for comparison. INDICATIONS : Pre op cardiac surgery. MEDICAL HISTORY : Hypercholesterolemia. Gastroesophageal reflux disease. Hypertension. Hearing loss. Cerebrovascular ac cident. Coronary artery disease. Anticoagulant therapy. Hiatal hernia. BPH. Arthritis. SURGICAL HISTORY : Tonsillectomy.Hemorrhoidectomy. Neck surgery. ENCOUNTER: Initial ACUITY: 1 day PAIN SCORE: 0/10 LOCATION: Bilateral legs. TECHNIQUE: Venous ultrasound of the left and right leg was performed from the inguinal ligament to the proximal calf. Real-time, color Doppler and spectral tracing, compression and augmentation techniques were us ed. FINDINGS: RIGHT LEG: There is normal compressibility of the deep venous system from the inguinal region to the proximal ca lf. No echogenic clot is seen in the lumen of the common femoral, femoral, popliteal, and posterior tibial veins. There is a normal response of the venous system to proximal and distal augmentation an d respiration. LEFT LEG: There is normal compressibility of the deep venous system from the inguinal region to the proximal ca lf. No echogenic clot is seen in the lumen of the common femoral, femoral, popliteal, and posterior tibial veins. There is a normal response of the venous system to proximal and distal augmentation an d respiration. CONCLUSION: Normal examination. Kofi Glover MD on August 05, 2017 at 17:00 Board Certified Radiologist. This report was verified electronically.
--- NOTE | 2017-08-05 18:09 | RADRPT ---
EXAM DATE/TIME: 08/05/2017 15:56 [facility] COMPARISON: No previous studies available for comparison. INDICATIONS : Pre op cardiac surgery. MEDICAL HISTORY : Hypercholesterolemia. Gastroesophageal reflux disease. Hypertension. Hearing loss. Cerebrovascular ac cident. Coronary artery disease. Anticoagulant therapy. Hiatal hernia. BPH. Arthritis. SURGICAL HISTORY : Hemorrhoidectomy. Tonsillectomy. Neck surgery. ENCOUNTER: Initial ACUITY: 1 day PAIN SCORE: 0/10 LOCATION: Bilateral neck PEAK SYSTOLIC VELOCITIES (cm/sec): ICA/CCA RATIO: Right: 2.2 Left: 1.8 ICA: Right: 120.9 Left: 83.3 CCA: Right: 55.9 Left: 47.1 ECA: Right: 127.9 Left: 44.9 VERTEBRAL: Right: 19.7 antegrade Left: 46.0 antegrade Elevated flow velocities and ICA/CCA ratios have been found to correlate with increased degrees of vessel stenosis, calculated as percentage of diameter relative to a normal segment of distal ICA/CCA FINDINGS: RIGHT CAROTID: There is mild plaque formation seen on the real-time images in the common and internal carotid artery . There is significant widening of the velocity spectrum with negative osse components during systol e in the mid internal carotid artery. LEFT CAROTID: No significant stenosis is visualized. The waveforms are within normal limits. VERTEBRAL ARTERIES: Antegrade flow is seen in both vertebral arteries. CONCLUSION: 1. Abnormal hemodynamic profile in the right internal carotid artery suggesting 50-70% stenosis. 2. Normal hemodynamic profile on the left side. Matteo Vega MD on August 05, 2017 at 18:01 Board Certified Radiologist. This report was verified electronically.
--- NOTE | 2017-08-05 18:23 | RADRPT ---
EXAM DATE/TIME: 08/05/2017 16:25 [facility] COMPARISON: No previous studies available for comparison. INDICATIONS : Pre op cardiac surgery. MEDICAL HISTORY : Hypercholesterolemia. Gastroesophageal reflux disease. Hypertension. Hearing loss. Cerebrovascular ac cident. Coronary artery disease. Anticoagulant therapy. Hiatal hernia. BPH. Arthritis. SURGICAL HISTORY : Tonsillectomy. Hemorrhoidectomy. Neck surgery. ENCOUNTER: Initial ACUITY: 1 day PAIN SCORE: 1/10 LOCATION: Bilateral legs. GREATER SAPHENOUS VEIN THIGH: PROXIMAL: Right 4 mm Left 5 mm MID: Right 4 mm Left 4 mm DISTAL: Right 4 mm Left 4 mm CALF: PROXIMAL: Right 2 mm Left 3 mm MID: Right 2 mm Left 2 mm DISTAL: Right Non-visualized Left 2 mm FINDINGS: The venous system of the lower extremities are patent by color Doppler imaging. Measurements of the leg veins (in mm) are listed above. CONCLUSION: Bilateral venous mapping as above. Matteo Vega MD on August 05, 2017 at 18:21 Board Certified Radiologist. This report was verified electronically.
[2017-08-05] MEDS ORDERED: HEPARIN-D5W 25,000 U/250 ML 250 ML IV SCH (18:30)
[2017-08-05 18:52] LABS: BACTERIA, URINE RARE /hpf; BLOOD, URINE NEG (NEG); COMMENT (UR) CULT NOT INDICATED; CULTURE IF INDICATED CULT NOT INDICATED; GLUCOSE,URINE NEG (NEG); KETONE, URINE NEG (NEG); NITRITE,URINE NEG (NEG); SQUAMOUS EPITHELIAL CELL URINE <1 /hpf (0-5); URINE COLOR LIGHT-YELLOW (YELLW/STRAW)
--- NOTE | 2017-08-05 19:01 | ECHRPT ---
Indication: pre-op cabg CONCLUSIONS The left ventricular systolic function is moderately reduced with an estimated ejection fraction in the range of 40-45%. Doppler parameters are consistent with impaired left ventricular relaxtion (grade 1 diastolic dysfun ction). Density noted in the apex of the LV, most likely artifact especially with relatively normal wall mot ion. [id number] mitral valve regurgitation. There is mild tricuspid valve regurgitation. BP: / HR: Rhythm: MEASUREMENTS (Male / Female) Normal Values Technical Quality:Fair 2D ECHO LV Diastolic Diameter PLAX 3.8 cm 4.2 - 5.9 / 3.9 - 5.3 cm LV Systolic Diameter PLAX 3.0 cm IVS Diastolic Thickness 0.9 cm 0.6 - 1.0 / 0.6 - 0.9 cm LVPW Diastolic Thickness 0.8 cm 0.6 - 1.0 / 0.6 - 0.9 cm LV Relative Wall Thickness 0.4 RV Internal Dim ED PLAX 2.7 cm LV Ejection Fraction MOD 4C 43.1 % LV Ejection Fraction 4C AL 46.8 % M-MODE Aortic Root Diameter MM 3.4 cm LA Systolic Diameter MM 5.0 cm LA Ao Ratio MM 1.5 AV Cusp Separation MM 1.2 cm DOPPLER AV Peak Velocity 182.0 cm/s AV Peak Gradient 13.2 mmHg AV Mean Gradient 7.0 mmHg AV Velocity Time Integral 38.9 cm LVOT Peak Velocity 98.5 cm/s LVOT Peak Gradient 3.9 mmHg LVOT Velocity Time Integral 17.3 cm MV Area PHT 4.2 cm Mitral E Point Velocity 81.9 cm/s Mitral A Point Velocity 102.0 cm/s Mitral E to A Ratio 0.8 LV E' Lateral Velocity 8.1 cm/s Mitral E to LV E' Lateral Ratio 10.1 LV E' Septal Velocity 5.9 cm/s Mitral E to LV E' Septal Ratio 13.8 TR Peak Velocity 262.0 cm/s TR Peak Gradient 27.5 mmHg Right Atrial Pressure 10.0 mmHg Pulmonary Artery Systolic Pressu 37.5 mmHg Right Ventricular Systolic Press 37.5 mmHg FINDINGS LEFT VENTRICLE The left ventricular systolic function is moderately reduced with an estimated ejection fraction in the range of 40-45%. Normal left ventricular size. Wall thickness is normal. Doppler parameters are consistent with impaired left ventricular relaxtion (grade 1 diastolic dysfun ction). Density noted in the apex of the LV, most likely artifact especially with relatively normal wall mot ion. RIGHT VENTRICLE Normal right ventricular size and systolic function. LEFT ATRIUM The left atrial size is normal. RIGHT ATRIUM The right atrial size is normal. ATRIAL SEPTUM Normal atrial septal thickness. AORTA The aortic root and proximal ascending aorta are normal in size on limited imaging. MITRAL VALVE Foshv-zh-doij mitral valve regurgitation. Structurally normal mitral valve. No mitral valve stenosis. AORTIC VALVE Trileaflet aortic valve. Mild thickening of the aortic valve leaflets. No aortic valve stenosis. No aortic valve regurgitation. Aortic valve area is _1.2_ cm. Aortic valve mean gradient is 7 mmHg. TRICUSPID VALVE There is mild tricuspid valve regurgitation. Structurally normal tricuspid valve. The estimated pulmonary arterial pressure is 37.5 mmHg. PULMONARY VALVE No pulmonary valve regurgitation or stenosis. VESSELS The inferior vena cava is normal in size. PERICARDIUM No pericardial effusion. Carlos Sue DO (Electronically Signed) Final Date:05 August 2017 19:00
[2017-08-05] MEDS: HEPARIN 25,000 UNITS-D5W 250 ML - PREMIX IV PRN (19:44)
[2017-08-05] MEDS: TERAZOSIN HCL 1 MG CAP PO SCH (21:54)
[2017-08-05] MEDS: SODIUM CHLORIDE 0.9% FLUSH 10 ML FLUSH IV FLUSH SCH (21:55)
[2017-08-06] VITALS (28 sets, daily range): BP systolic 91–117; BP diastolic 54–66; PULSE 49–80; RESP 15–18; TEMP 97.6–98.3; O2SAT 94–98
[2017-08-06 03:06] LABS: AUTOMATED NEUTROPHIL # 4.1 TH/MM3 (1.8-7.7); BASOPHIL % 0.4 % (0.0-2.0); EOSINOPHIL # 0.1 TH/MM3 (0-0.4); EOSINOPHIL % 1.4 % (0.0-4.0); HEMATOCRIT 35.2 % (39.0-51.0); HEMO FLAGS DIFF FINAL; LYMPH % 34.8 % (9.0-44.0); LYMPHOCYTE # 2.6 TH/MM3 (1.0-4.8); MEAN CORPUSCULAR HEMOGLOBIN 28.6 PG (27.0-34.0); MEAN CORPUSCULAR HGB CONC 33.3 % (32.0-36.0); MONO % 8.5 % (0.0-8.0); NEUT % 54.9 % (16.0-70.0); PLATELET COUNT 231 TH/MM3 (150-450); RED BLOOD COUNT 4.09 MIL/MM3 (4.50-5.90); RED CELL DISTRIBUTION WIDTH 15.1 % (11.6-17.2); WHITE BLOOD COUNT 7.4 TH/MM3 (4.0-11.0)
[2017-08-06 03:29] LABS: ANION GAP 7 MEQ/L (5-15); BICARBONATE 25.7 MEQ/L (21.0-32.0); BLOOD UREA NITROGEN 19 MG/DL (7-18); CHLORIDE 110 MEQ/L (98-107); GLOMERULAR FILTRATION RATE 54 ML/MIN (>89); POTASSIUM 3.7 MEQ/L (3.5-5.1); SODIUM (NA) 143 MEQ/L (136-145)
[2017-08-06 03:30] LABS: APTT (PATIENT) 42.3 SEC (24.3-30.1)
[2017-08-06 03:48] LABS: P2Y12 REACTION UNITS (PRU) 224 PRU (194-418)
[2017-08-06] MEDS: HEPARIN 25,000 UNITS-D5W 250 ML - PREMIX IV PRN (04:59)
--- NOTE | 2017-08-06 05:56 | MB ---
cc: CARLOS SOMMERS DO DATE OF CONSULTATION August 05, 2017 REASON FOR CONSULTATION Chest pain, elevated troponin. HISTORY OF PRESENT ILLNESS Leandro Burns is a pleasant 82-year-old male who presented to [facility] Emergency Room on August 04, 2017, due to chest pain. He states that he has had chest pain on and off for the past three days and yesterday was waiting for his hearing aids at the [place] when he noticed the chest pressure returning. EKG was done and was read as possible ST-elevation and so he was sent to the emergency room. On arrival to the emergency room, EKG showed ST depressions with no significant ST elevations. He was admitted and troponins were noted to be elevated and so he was started on a heparin drip. On seeing him this morning he denies recurrent chest pain or shortness of breath. He states that his chest pain had resolved prior to arrival to the emergency room. He states that the chest pain comes on with activities and is also postprandial so he felt it was secondary to his hiatal hernia. PAST MEDICAL HISTORY 1. Hyperlipidemia. 2. History of CVA. 3. BPH. 4. GERD. 5. COPD. 6. Osteoarthritis. PAST SURGICAL HISTORY 1. Tonsillectomy as a child. 2. Carotid endarterectomy. ALLERGIES WHEAT. MEDICATIONS 1. Combivent 1 puff q.i.d. as needed for shortness of breath. 2. Plavix 75 mg daily. 3. Zocor 20 mg daily 4. Terazosin 2 mg every night. 5. [place] 5/325 every 6 hours as needed for pain. 6. Tramadol 15 mg t.i.d. 7. Omeprazole 20 mg b.i.d. FAMILY HISTORY Father of liver cancer. Denies premature coronary artery disease or sudden cardiac within the family. SOCIAL HISTORY The patient smoked a half-pack of cigarettes per day for 70 years. Denies alcohol or drug abuse. REVIEW OF SYSTEMS 14-systems were reviewed including osteopathic pertinent positives and negatives above, otherwise negative. PHYSICAL EXAMINATION VITAL SIGNS: Temperature 97.8, heart rate 54, blood pressure whenever 102/62, respirations 17, pulse ox 95%. IN GENERAL: The patient appears well, in no acute distress, alert awake and oriented x3. Extraocular muscles intact. Mucous membranes moist. NECK: Supple. No JVD at 45 degrees. No carotid bruits heard bilaterally. Carotid upstroke is brisk in nature. HEART: Regular rate and rhythm. Positive first and second heart sounds without any murmurs, gallops or rubs. LUNGS: Clear to auscultation bilaterally. No wheezes, rales or rhonchi. ABDOMEN: Soft, nontender, nondistended. No organomegaly noted. EXTREMITIES: No clubbing, cyanosis or edema. Femoral and distal pulses intact bilaterally. NEUROLOGICALLY: No focal deficits. SKIN: Warm, dry and intact. OSTEOPATHIC: Mild kyphoscoliosis. No lordosis or paraspinal tender points. LABORATORY WORK Hemoglobin 11.4, hematocrit 34.3, platelets 234. Potassium 5.1, BUN 14, creatinine 1.31. Troponin 14.1. ELECTROCARDIOGRAM (August 12, 2017 at 22:53) Sinus bradycardia, nonspecific ST-T wave changes. IMPRESSION 1. NSTEMI. 2. Chest pain concerning for coronary insufficiency. 3. History of CVA. 4. Hypertension. 5. Hyperlipidemia Tobacco abuse. Chronic kidney disease. RECOMMENDATIONS 1. Mr. Burns presented with chest pain concerning for coronary insufficiency and was found to have an elevated troponin. I discussed with him consideration of cardiac catheterization as well as the risks, benefits and alternatives and he consents to such. 2. We will check an echo to look at his overall left ventricular function, cardiac structure and possible valvopathies. 3. I spoke to him for greater than three minutes about tobacco cessation. 4. Further recommendations will be made after coronary visualization. Thank you for allowing me to see Leandro Burns. If there are any questions, please do not hesitate to call. Carlos Sommers DO VGP/SSB /11:25 PM /5:42 AM
[2017-08-06] MEDS: PANTOPRAZOLE SOD 20 MG DELAYED RELEASE TAB PO SCH ×2 (07:13→15:51)
[2017-08-06] MEDS: ISOSORBIDE MONONITRATE 30 MG TAB PO SCH (07:13)
--- NOTE | 2017-08-06 07:20 | MB ---
cc: HOPE ORELLANA M.D., SOHIT K. M.D. DATE OF CONSULTATION: 08/05/2017 REASON FOR CONSULTATION: This is a 82-year-old patient, date of 1935. This is a patient of Dr. Hope Orellana at the [place] on the blue team. Apparently started having some what he described as burning in his chest on Friday, noticed it after he was eating something. On Friday he seem to be doing okay and then Friday he went to the [place] for hearing test and his burning sensation started again, they did an electrocardiogram which is slightly abnormal and he was transferred over to the [facility] emergency room and had a work up. His electrocardiogram showed some moderate ST depression aVL, lead I, his troponins were elevated the highest at 14.1. He was ruled in for a non-STEMI. He underwent cardiac catheterization today which showed a left main disease of 80% proximal LAD 50%. The mid and distal LAD 20%. The diagonal 70%. The circ was 10. The OM 20%. The RCA 95%. 2-D echo is pending for a ejection fraction. We were consulted to evaluate for coronary artery bypass grafting. PAST MEDICAL HISTORY: The patient's past medical history includes; History of cerebrovascular accident 1 year ago with a minimal speech defect, very light left facial drooping, right weakness in his arm. Benign prostatic hypertrophy Hyperlipidemia Cervical spondylosis. Esophageal dysphasia Carotid artery stenosis Hearing loss. 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 SURGERIES Tonsillectomy. ALLERGIES NO MEDICATION ALLERGIES. HOME MEDICATIONS: Combivent Plavix last dose was on the . Simvastatin. Terazosin. [place]. Tramadol Omeprazole Multivitamin. FAMILY HISTORY Father from liver cancer. Mother from old age. SOCIAL HISTORY The patient lives alone. No children. Retired [employer]. actively rides his motorcycle, he takes care of his cooking and cleaning at home. Does not use any assistive walking devices, he smoked for 70 years quit 4 months ago. No alcohol. REVIEW OF SYSTEMS IN GENERAL: No night sweats, fever, heat and cold intolerance. SKIN: No psoriasis, itching or hives. HEAD, EYES, EARS, NOSE, AND THROAT: No blurred vision, hearing loss. RESPIRATORY: No cough, shortness of breath. CARDIOVASCULAR SYSTEM: As above in History of present illness. GASTROINTESTINAL: No diarrhea, or vomiting. GENITOURINARY: No burning, frequency or urgency. CENTRAL NERVOUS SYSTEM: Positive for history of cerebrovascular accident one year ago. ENDOCRINOLOGY: No diabetes and/or hypothyroidism. PHYSICAL EXAMINATION: VITAL SIGNS: Blood pressure 102/60, heart rate of 68, afebrile. IN GENERAL: Patient is awake, alert, no acute distress. HEAD, EYES, EARS, NOSE, AND THROAT: Head is normocephalic, atraumatic. Pupils equal and reactive. Oral mucosa pink, moist. NECK: Supple. No JVD. He does have some mild left facial droop disease as he has had since his surgery has very minimal speech defect. CARDIOVASCULAR: heart sounds S1-S2 regular rate and rhythm. No audible rubs, murmurs, gallops. LUNGS: The lungs are clear to auscultation. No wheezes, rales or rhonchi. ABDOMEN: Abdomen is soft, nontender. No masses or organomegaly. EXTREMITIES: No cyanosis, clubbing or edema. LABORATORY FINDINGS: Lab work shows hemoglobin of 11, hematocrit 34, white cell count 8.9, platelet count 234, sodium 139, potassium 5.1, BUN 14, creatinine 1.31. Troponins an elevated at 14, AST 64, ALT 28, INR 1.1. Chest x-ray was unremarkable. An EKG as above. IMPRESSION This is a 82-year-old male fairly active with multivessel disease risks include age, history of cerebrovascular accident, hyperlipidemia. 2-D echo is pending to evaluate for ejection fraction and he has a 80% left main. The coronary films will be evaluated by Dr. Mago Morris. Procedures, alternatives and risks will be discussed with the patient planning for surgery if the patient is willing to undergo coronary artery bypass grafting. In the meantime his last dose of Plavix was on the and will check platelet inhibition testing in the a.m. DICTATED BY: TUAN Chatterjee MD LEONILA Maxwell/mitali /2:46 PM /4:25 PM
--- NOTE | 2017-08-06 07:46 | PD.CAR.PN ---
CVT Progress Note Subjective/Hospital Course: sts data discussed with pt RISK SCORES About the STS Risk Calculator Procedure: CAB Only Risk of Mortality: 4.128% Morbidity or Mortality: 24.834% Long Length of Stay: 13.07% Short Length of Stay: 21.504% Permanent Stroke: 2.5% Prolonged Ventilation: 17.245% DSW Infection: 0.58% Renal Failure: 5.865% Reoperation: 8.936% Objective: Vital Signs Date Time Temp Pulse Resp B/P (MAP) Pulse Ox O2 Delivery O2 Flow Rate FiO2 08/06/17 06:00 53 08/06/17 05:00 58 08/06/17 04:00 61 08/06/17 04:00 97.9 61 18 108/66 (80) 95 08/06/17 03:00 49 08/06/17 00:00 98.1 49 18 108/66 (80) 95 08/05/17 20:00 98.1 57 18 131/68 (89) 93 08/05/17 20:00 79 08/05/17 19:00 57 08/05/17 18:00 68 08/05/17 17:47 97 21 08/05/17 17:00 64 08/05/17 16:00 50 08/05/17 15:30 98.2 55 18 112/72 (85) 96 08/05/17 15:00 57 08/05/17 14:00 52 08/05/17 13:00 50 08/05/17 12:00 48 08/05/17 11:50 98.2 67 18 101/57 (72) 97 08/05/17 11:10 95 08/05/17 11:00 52 08/05/17 10:00 48 08/05/17 09:00 52 08/05/17 08:00 54 08/05/17 08:00 97.8 54 17 102/62 (75) 95 Labs: Laboratory Tests Test 08/06/17 02:39 White Blood Count 7.4 TH/MM3 (4.0-11.0) Red Blood Count 4.09 MIL/MM3 (4.50-5.90) Hemoglobin 11.7 GM/DL (13.0-17.0) Hematocrit 35.2 % (39.0-51.0) Mean Corpuscular Volume 86.0 FL (80.0-100.0) Mean Corpuscular Hemoglobin 28.6 PG (27.0-34.0) Mean Corpuscular Hemoglobin Concent 33.3 % (32.0-36.0) Red Cell Distribution Width 15.1 % (11.6-17.2) Platelet Count 231 TH/MM3 (150-450) Mean Platelet Volume 7.9 FL (7.0-11.0) Neutrophils (%) (Auto) 54.9 % (16.0-70.0) Lymphocytes (%) (Auto) 34.8 % (9.0-44.0) Monocytes (%) (Auto) 8.5 % (0.0-8.0) Eosinophils (%) (Auto) 1.4 % (0.0-4.0) Basophils (%) (Auto) 0.4 % (0.0-2.0) Neutrophils # (Auto) 4.1 TH/MM3 (1.8-7.7) Lymphocytes # (Auto) 2.6 TH/MM3 (1.0-4.8) Monocytes # (Auto) 0.6 TH/MM3 (0-0.9) Eosinophils # (Auto) 0.1 TH/MM3 (0-0.4) Basophils # (Auto) 0.0 TH/MM3 (0-0.2) CBC Comment DIFF FINAL Differential Comment Activated Partial Thromboplast Time 42.3 SEC (24.3-30.1) Platelet Function P2Y12 React Units 224 PRU (194-418) Blood Urea Nitrogen 19 MG/DL (7-18) Creatinine 1.27 MG/DL (0.60-1.30) Random Glucose 97 MG/DL (74-106) Calcium Level 8.4 MG/DL (8.5-10.1) Sodium Level 143 MEQ/L (136-145) Potassium Level 3.7 MEQ/L (3.5-5.1) Chloride Level 110 MEQ/L (98-107) Carbon Dioxide Level 25.7 MEQ/L (21.0-32.0) Anion Gap 7 MEQ/L (5-15) Estimat Glomerular Filtration Rate 54 ML/MIN (>89) Result Diagram: 08/06/17 0239 08/06/17 0239 Azra Robertson Aug 06, 2017 07:46
--- NOTE | 2017-08-06 08:03 | PD.CAR.PN ---
CVT Progress Note Subjective/Hospital Course: 82-year-old male , patient of Dr. Hope Golden at the [place] on the blue team. Bar Chopra , apparently started having some burning in his chest on Friday , noticed it after he was eating something. On Friday he seemed to be doing okay and then Friday he went to the [place] for hearing test and his burning sensation started again, they did an electrocardiogram which is slightly abnormal and he was transferred over to the [facility] emergency room and had a work up. His electrocardiogram showed some moderate ST depression aVL, lead I , his troponins were elevated the highest at 14.1. He was ruled in for a non- STEMI. He underwent cardiac catheterization today which showed a left main disease of 80% proximal LAD 50%. The mid and distal LAD 20%. The diagonal 70% . The circ was 10. The OM 20%. The RCA 95%. 2-D echo shoed Ef 40% ( grade 1 diastolic dysfunction) mild MR. mild TR. We were consulted to evaluate for coronary artery bypass grafting. PAST MEDICAL HISTORY: History of cerebrovascular accident 1 year ago with a minimal speech defect, very light left facial drooping, mild right weakness in his arm.( hx of Left CEA 2 years ago ) current carotid US shows 50-70% stenosis right ICA 120sec velocity Benign prostatic hypertrophy Hyperlipidemia Cervical spondylosis. Esophageal dysphasia Hearing loss. 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 HEAD: Normocephalic. EYES: No scleral icterus. No injection or drainage. NECK: Supple, trachea midline. No JVD or lymphadenopathy. CARDIOVASCULAR: Regular rate and rhythm without murmurs, gallops, or rubs. RESPIRATORY: Breath sounds equal bilaterally. No accessory muscle use. GASTROINTESTINAL: Abdomen soft, non-tender, nondistended. MUSCULOSKELETAL: No cyanosis, or edema. BACK: Nontender without obvious deformity. No CVA tenderness. Vital Signs Date Time Temp Pulse Resp B/P (MAP) Pulse Ox O2 Delivery O2 Flow Rate FiO2 08/06/17 06:00 53 08/06/17 05:00 58 08/06/17 04:00 61 08/06/17 04:00 97.9 61 18 108/66 (80) 95 08/06/17 03:00 49 08/06/17 00:00 98.1 49 18 108/66 (80) 95 08/05/17 20:00 98.1 57 18 131/68 (89) 93 08/05/17 20:00 79 08/05/17 19:00 57 08/05/17 18:00 68 08/05/17 17:47 97 21 08/05/17 17:00 64 08/05/17 16:00 50 08/05/17 15:30 98.2 55 18 112/72 (85) 96 08/05/17 15:00 57 08/05/17 14:00 52 08/05/17 13:00 50 08/05/17 12:00 48 08/05/17 11:50 98.2 67 18 101/57 (72) 97 08/05/17 11:10 95 08/05/17 11:00 52 08/05/17 10:00 48 08/05/17 09:00 52 08/05/17 08:00 54 08/05/17 08:00 97.8 54 17 102/62 (75) 95 Labs: Laboratory Tests Test 08/06/17 02:39 White Blood Count 7.4 TH/MM3 (4.0-11.0) Red Blood Count 4.09 MIL/MM3 (4.50-5.90) Hemoglobin 11.7 GM/DL (13.0-17.0) Hematocrit 35.2 % (39.0-51.0) Mean Corpuscular Volume 86.0 FL (80.0-100.0) Mean Corpuscular Hemoglobin 28.6 PG (27.0-34.0) Mean Corpuscular Hemoglobin Concent 33.3 % (32.0-36.0) Red Cell Distribution Width 15.1 % (11.6-17.2) Platelet Count 231 TH/MM3 (150-450) Mean Platelet Volume 7.9 FL (7.0-11.0) Neutrophils (%) (Auto) 54.9 % (16.0-70.0) Lymphocytes (%) (Auto) 34.8 % (9.0-44.0) Monocytes (%) (Auto) 8.5 % (0.0-8.0) Eosinophils (%) (Auto) 1.4 % (0.0-4.0) Basophils (%) (Auto) 0.4 % (0.0-2.0) Neutrophils # (Auto) 4.1 TH/MM3 (1.8-7.7) Lymphocytes # (Auto) 2.6 TH/MM3 (1.0-4.8) Monocytes # (Auto) 0.6 TH/MM3 (0-0.9) Eosinophils # (Auto) 0.1 TH/MM3 (0-0.4) Basophils # (Auto) 0.0 TH/MM3 (0-0.2) CBC Comment DIFF FINAL Differential Comment Activated Partial Thromboplast Time 42.3 SEC (24.3-30.1) Platelet Function P2Y12 React Units 224 PRU (194-418) Blood Urea Nitrogen 19 MG/DL (7-18) Creatinine 1.27 MG/DL (0.60-1.30) Random Glucose 97 MG/DL (74-106) Calcium Level 8.4 MG/DL (8.5-10.1) Sodium Level 143 MEQ/L (136-145) Potassium Level 3.7 MEQ/L (3.5-5.1) Chloride Level 110 MEQ/L (98-107) Carbon Dioxide Level 25.7 MEQ/L (21.0-32.0) Anion Gap 7 MEQ/L (5-15) Estimat Glomerular Filtration Rate 54 ML/MIN (>89) Result Diagram: 08/06/1723808/06/17238 Telemetry: NSR (1) Chronic kidney disease (2) Diastolic congestive heart failure, NYHA class 1 (3) History of CVA (cerebrovascular accident) (4) Coronary artery disease Plan: eval for surgery , possible on friday will need to allow time to improve PRU (5) Hyperlipemia (6) COPD (chronic obstructive pulmonary disease) (7) Carotid stenosis, right Azra Robertson Aug 06, 2017 08:03
[2017-08-06] MEDS: SODIUM CHLORIDE 0.9% FLUSH 10 ML FLUSH IV FLUSH SCH ×2 (08:12→21:00)
[2017-08-06] MEDS: METOPROLOL TARTRATE 25 MG TAB PO SCH ×2 (08:14→21:04)
[2017-08-06] MEDS ORDERED: POTASSIUM CHLORIDE 10 MEQ CAP PO ONE (08:30)
[2017-08-06] MEDS ORDERED: CEFAZOLIN INJ 500 MG in SODIUM CHLORIDE 0.9% IRR BTL 500 ML IRRIGATION SCH (12:15)
[2017-08-06] MEDS ORDERED: CHLORHEXIDINE GLUCONATE 4% SOLN 120 ML BTL TOPICAL SCH (12:15)
[2017-08-06] MEDS ORDERED: ceFAZolin 2 GM PREMIX 50 ML IV SCH (12:15)
[2017-08-06] MEDS ORDERED: PAPAVERINE INJ 60 MG, NITROGLYCERIN INJ 100 MCG, DILTIAZEM INJ 100 MG in SODIUM CHLORID... IRRIGATION SCH (12:15)
[2017-08-06] MEDS ORDERED: DEXTROSE 50% IN WATER 50 ML VIAL(D50) IV PUSH PRN (12:15)
[2017-08-06] MEDS ORDERED: METOPROLOL TARTRATE 25 MG TAB PO SCH (12:15)
[2017-08-06] MEDS ORDERED: SODIUM CHLORIDE 0.9% FLUSH 10 ML FLUSH IV FLUSH PRN (12:15)
[2017-08-06] MEDS ORDERED: INSULIN REGULAR (IV INFUSION) 100 UNITS in SODIUM CHLORIDE 0.9% INJ 99 ML IV PRN (12:15)
[2017-08-06 12:57] LABS: HEMOGLOBIN A1a 1.3 %; HEMOGLOBIN A1b 1.8 %; HEMOGLOBIN Ao 83.7 %; HEMOGLOBIN LA1C 2.2 %; HEMOGLOBIN P3 4.1 %
--- NOTE | 2017-08-06 14:11 | HHI.PR ---
Subjective Remarks Nursing denies any deterioration since last night. Patient denies any chest pain, nausea, vomiting. Denies any recent drinking history. Objective Vital Signs Date Time Temp Pulse Resp B/P (MAP) Pulse Ox O2 Delivery O2 Flow Rate FiO2 08/06/17 14:01 60 08/06/17 13:27 72 08/06/17 12:53 62 08/06/17 11:31 97.8 80 18 96/58 (71) 97 08/06/17 11:00 72 08/06/17 10:00 64 08/06/17 09:00 60 08/06/17 08:00 62 08/06/17 07:11 97.8 62 18 91/54 (66) 96 08/06/17 07:00 65 08/06/17 06:00 53 08/06/17 05:00 58 08/06/17 04:00 61 08/06/17 04:00 97.9 61 18 108/66 (80) 95 08/06/17 03:00 49 08/06/17 00:00 98.1 49 18 108/66 (80) 95 08/05/17 20:00 98.1 57 18 131/68 (89) 93 08/05/17 20:00 79 08/05/17 19:00 57 08/05/17 18:00 68 08/05/17 17:47 97 21 08/05/17 17:00 64 08/05/17 16:00 50 08/05/17 15:30 98.2 55 18 112/72 (85) 96 08/05/17 15:00 57 I/O 08/05/17 08/05/17 08/05/17 08/06/17 08/06/17 08/06/17 07:00 15:00 23:00 07:00 15:00 23:00 Intake Total 150 ml 70 ml 350 ml 240 ml Output Total 150 ml 400 ml 1550 ml Balance 0 ml 70 ml -50 ml -1310 ml Intake Oral 100 ml 350 ml 240 ml IV Total 50 ml 70 ml Output Urine Total 150 ml 400 ml 1550 ml # Bowel Movements 0 Result Diagram: 08/06/179 08/06/17238 Objective Remarks Very faint heart sounds, clear lungs bilaterally otherwise, no cyanosis, no clubbing, no labored breathing No acute distress, good skin color, awake alert A/P Assessment and Plan 82-year-old male presents to the emergency department with chest pain and elevated troponins. 1. NSTEMI Discussed with cardiology, given multivessel disease and cardiothoracic surgery has evaluated patient today and plans on intervention in the next few days heparin. continue aspirin, plavix, lipitor, lopressor. echo showing EF of 40%. 2. CKD stable 3. HLD/BPH/GERD Continue home medications FEN diet Electrolytes: monitor and replete prn Heparin ggt Fidel Umana MD Aug 06, 2017 14:11
[2017-08-06 14:51] LABS: APTT (PATIENT) 41.8 SEC (24.3-30.1)
--- NOTE | 2017-08-06 16:08 | PD.CARD.PN ---
Subjective Subjective Remarks No events overnight No chest pain/SOB Objective Medications Current Medications Medications (Trade) Dose Ordered Sig/Vince Route Start Time Stop Time Status Last Admin (Lopressor) 12.5 mg BID PO 08/05/17 09:00 08/05/17 08:07 (Hytrin) 2 mg HS PO 08/05/17 21:00 08/05/17 21:54 (Protonix) 20 mg BIDAC PO 08/05/17 07:00 08/06/17 15:51 (Lipitor) 40 mg HS PO 08/05/17 10:30 08/05/17 11:48 (Imdur) 30 mg DAILY@07 PO 08/06/17 07:00 08/06/17 07:13 Heparin Sodium/ Dextrose 250 ml @ 10 mls/hr TITRATE PRN IV 08/05/17 19:30 08/06/17 04:59 (NS Flush) 2 ml BID IV FLUSH 08/06/17 21:00 (NS Flush) 2 ml UNSCH PRN IV FLUSH 08/06/17 12:15 Papaverine HCl 60 mg/Nitroglycerin 100 mcg/Diltiazem HCl 100 mg/Sodium Chloride 100 ml @ 0 mls/hr [employer]ISCAL [employer]OMIST IRRIGATION 08/06/17 12:15 08/13/17 12:14 Cefazolin Sodium 500 mg/Sodium Chloride 505 ml @ 0 mls/hr [employer]IST IRRIGATION 08/06/17 12:15 08/13/17 12:14 Cefazolin Sodium/ Dextrose 50 ml @ 150 mls/hr FISCAL ECONOMIST IV 08/06/17 12:15 08/13/17 12:14 (Lopressor) 12.5 mg FISCAL ECONOMIST PO 08/06/17 12:15 08/13/17 12:14 (Hibiclens 4% Top Soln) 1 applic FISCAL ECONOMIST TOPICAL 08/06/17 12:15 08/13/17 12:14 Insulin Human Regular 100 units/ Sodium Chloride 100 ml @ 3 mls/hr TITRATE PRN IV 08/06/17 12:15 08/13/17 12:14 (D50w (Vial) Inj) 50 ml UNSCH PRN IV PUSH 08/06/17 12:15 Vital Signs / I&O Vital Signs Date Time Temp Pulse Resp B/P (MAP) Pulse Ox O2 Delivery O2 Flow Rate FiO2 08/06/17 15:45 97.6 56 18 117/59 (78) 98 08/06/17 15:44 56 08/06/17 14:01 60 08/06/17 13:27 72 08/06/17 12:53 62 08/06/17 11:31 97.8 80 18 96/58 (71) 97 08/06/17 11:00 72 08/06/17 10:00 64 08/06/17 09:00 60 08/06/17 08:00 62 08/06/17 07:11 97.8 62 18 91/54 (66) 96 08/06/17 07:00 65 08/06/17 06:00 53 08/06/17 05:00 58 08/06/17 04:00 61 08/06/17 04:00 97.9 61 18 108/66 (80) 95 08/06/17 03:00 49 08/06/17 00:00 98.1 49 18 108/66 (80) 95 08/05/17 20:00 98.1 57 18 131/68 (89) 93 08/05/17 20:00 79 08/05/17 19:00 57 08/05/17 18:00 68 08/05/17 17:47 97 21 08/05/17 17:00 64 I/O 08/05/17 08/05/17 08/05/17 08/06/17 08/06/17 08/06/17 07:00 15:00 23:00 07:00 15:00 23:00 Intake Total 150 ml 70 ml 350 ml 240 ml Output Total 150 ml 400 ml 1550 ml Balance 0 ml 70 ml -50 ml -1310 ml Intake Oral 100 ml 350 ml 240 ml IV Total 50 ml 70 ml Output Urine Total 150 ml 400 ml 1550 ml # Bowel Movements 0 Physical Exam GENERAL: NAD, AAOx3 SKIN: Warm and dry. HEAD: Atraumatic. Normocephalic. EYES: Pupils equal and round. No scleral icterus. No injection or drainage. ENT: No nasal bleeding or discharge. Mucous membranes pink and moist. NECK: Trachea midline. No JVD. CARDIOVASCULAR: Regular rate and rhythm. RESPIRATORY: No accessory muscle use. Clear to auscultation. Breath sounds equal bilaterally. GASTROINTESTINAL: Abdomen soft, non-tender, nondistended. Hepatic and splenic margins not palpable. MUSCULOSKELETAL: Extremities without clubbing, cyanosis, or edema. No obvious deformities. NEUROLOGICAL: Awake and alert. No obvious cranial nerve deficits. Motor grossly within normal limits. Five out of 5 muscle strength in the arms and legs. Normal speech. PSYCHIATRIC: Appropriate mood and affect; insight and judgment normal. Laboratory Laboratory Tests Test 08/05/17 18:26 08/06/17 02:39 08/06/17 08:25 08/06/17 13:55 Urine Color LIGHT-YELLOW Urine Turbidity CLEAR Urine pH 6.0 Urine Specific [place] 1.022 Urine Protein NEG mg/dL Urine Glucose (UA) NEG mg/dL Urine Ketones NEG mg/dL Urine Occult Blood NEG Urine Nitrite NEG Urine Bilirubin NEG Urine Urobilinogen LESS THAN 2.0 MG/DL Urine Leukocyte Esterase NEG Urine RBC LESS THAN 1 /hpf Urine WBC LESS THAN 1 /hpf Urine Squamous Epithelial Cells <1 /hpf Urine Bacteria RARE /hpf Microscopic Urinalysis Comment CULT NOT INDICATED White Blood Count 7.4 TH/MM3 Red Blood Count 4.09 MIL/MM3 Hemoglobin 11.7 GM/DL Hematocrit 35.2 % Mean Corpuscular Volume 86.0 FL Mean Corpuscular Hemoglobin 28.6 PG Mean Corpuscular Hemoglobin Concent 33.3 % Red Cell Distribution Width 15.1 % Platelet Count 231 TH/MM3 Mean Platelet Volume 7.9 FL Neutrophils (%) (Auto) 54.9 % Lymphocytes (%) (Auto) 34.8 % Monocytes (%) (Auto) 8.5 % Eosinophils (%) (Auto) 1.4 % Basophils (%) (Auto) 0.4 % Neutrophils # (Auto) 4.1 TH/MM3 Lymphocytes # (Auto) 2.6 TH/MM3 Monocytes # (Auto) 0.6 TH/MM3 Eosinophils # (Auto) 0.1 TH/MM3 Basophils # (Auto) 0.0 TH/MM3 CBC Comment DIFF FINAL Differential Comment Activated Partial Thromboplast Time 42.3 SEC 41.8 SEC Platelet Function P2Y12 React Units 224 PRU Blood Urea Nitrogen 19 MG/DL Creatinine 1.27 MG/DL Random Glucose 97 MG/DL Calcium Level 8.4 MG/DL Sodium Level 143 MEQ/L Potassium Level 3.7 MEQ/L Chloride Level 110 MEQ/L Carbon Dioxide Level 25.7 MEQ/L Anion Gap 7 MEQ/L Estimat Glomerular Filtration Rate 54 ML/MIN Assessment and Plan Problem List: (1) Chronic kidney disease ICD Codes: N18.9 - Chronic kidney disease, unspecified (2) Diastolic congestive heart failure, NYHA class 1 ICD Codes: I50.30 - Unspecified diastolic (congestive) heart failure (3) History of CVA (cerebrovascular accident) ICD Codes: Z86.73 - Personal history of transient ischemic attack (TIA), and cerebral infarction without residual deficits (4) Coronary artery disease ICD Codes: I25.10 - Atherosclerotic heart disease of [place] coronary artery without angina pectoris (5) Hyperlipemia ICD Codes: E78.5 - Hyperlipidemia, unspecified (6) COPD (chronic obstructive pulmonary disease) ICD Codes: J44.9 - Chronic obstructive pulmonary disease, unspecified (7) Carotid stenosis, right ICD Codes: I65.21 - Occlusion and stenosis of right carotid artery Assessment and Plan 1) MVCAD for CABG possibly Friday 2) Con't heparin drip 3) Bedside echo with Definity showing no apical thrombus 4) Will plan to see post-operatively If concerns over the holiday, please call the covering physician Carlos Sue DO Aug 06, 2017 16:07
--- NOTE | 2017-08-06 20:59 | ECHRPT ---
Indication: EF assessment of CHF CONCLUSIONS The left ventricular systolic function is low normal with an estimated ejection fraction in the rang e of 50- 55%. Definity contrast used to help define the apex, no thrombus noted BP: 108 / 66 HR: 61 Rhythm: Sinus MEASUREMENTS (Male / Female) Normal Values Technical Quality:Good 2D ECHO LV Ejection Fraction MOD BP 50.7 % >= 55 % LV Cardiac Index MOD BP 1134.7 cm/minm LV Ejection Fraction MOD 4C 52.4 % LV Cardiac Index MOD 4C 1284.0 cm/minm LV Ejection Fraction 4C AL 54.6 % LV Cardiac Index 4C AL 1400.2 cm/minm LV Ejection Fraction MOD 2C 47.6 % LV Cardiac Index MOD 2C 895.8 cm/minm LV Ejection Fraction 2C AL 49.4 % LV Cardiac Index 2C AL 976.1 cm/minm FINDINGS LEFT VENTRICLE The left ventricular systolic function is low normal with an estimated ejection fraction in the rang e of 50- 55%. Contrast enhanced echocardiography was utilized for improved endocardial border definition. No thrombus noted in the apex. Carlos Sue DO (Electronically Signed) Final Date:06 August 2017 20:58
[2017-08-06 21:03] LABS: APTT (PATIENT) 43.6 SEC (24.3-30.1)
[2017-08-06] MEDS: ATORVASTATIN 40 MG TAB PO SCH (21:04)
[2017-08-06] MEDS: TERAZOSIN HCL 1 MG CAP PO SCH (21:04)
[2017-08-07] VITALS (27 sets, daily range): BP systolic 94–124; BP diastolic 50–69; PULSE 48–64; RESP 15–18; TEMP 97.7–98.3; O2SAT 92–98
[2017-08-07 04:45] LABS: HEMATOCRIT 36.3 % (39.0-51.0); MEAN CELL VOLUME 86.7 FL (80.0-100.0); MEAN CORPUSCULAR HEMOGLOBIN 29.4 PG (27.0-34.0); MEAN CORPUSCULAR HGB CONC 33.9 % (32.0-36.0); PLATELET COUNT 222 TH/MM3 (150-450); RED BLOOD COUNT 4.18 MIL/MM3 (4.50-5.90); REVIEW FLAG FINAL; WHITE BLOOD COUNT 8.4 TH/MM3 (4.0-11.0)
[2017-08-07 04:55] LABS: APTT (PATIENT) 49.9 SEC (24.3-30.1)
[2017-08-07] MEDS: PANTOPRAZOLE SOD 20 MG DELAYED RELEASE TAB PO SCH ×2 (06:13→16:08)
[2017-08-07] MEDS: ISOSORBIDE MONONITRATE 30 MG TAB PO SCH (06:13)
[2017-08-07] MEDS: HEPARIN 25,000 UNITS-D5W 250 ML - PREMIX IV PRN (07:11)
[2017-08-07] MEDS: METOPROLOL TARTRATE 25 MG TAB PO SCH ×2 (08:47→21:06)
[2017-08-07] MEDS: SODIUM CHLORIDE 0.9% FLUSH 10 ML FLUSH IV FLUSH SCH ×2 (09:00→21:07)
--- NOTE | 2017-08-07 10:02 | HHI.PR ---
Subjective Remarks Nursing denies any deterioration since last night. Patient denies any chest pain. Denies any nausea vomiting. Objective Vital Signs Date Time Temp Pulse Resp B/P (MAP) Pulse Ox O2 Delivery O2 Flow Rate FiO2 08/07/17 08:37 95 21 08/07/17 08:30 98.3 57 18 105/55 (72) 98 08/07/17 07:01 55 08/07/17 06:17 53 08/07/17 05:11 52 08/07/17 04:20 54 08/07/17 03:45 58 08/07/17 03:45 97.9 57 15 94/50 (65) 92 08/07/17 02:00 54 08/07/17 01:20 55 08/07/17 00:10 56 08/06/17 23:42 98.3 58 15 92/59 (70) 94 08/06/17 23:00 64 08/06/17 22:00 50 08/06/17 21:00 56 08/06/17 20:00 58 08/06/17 19:52 97.7 58 16 104/62 (76) 94 Manual Cuff/Auscultation 08/06/17 19:00 55 08/06/17 18:01 62 08/06/17 17:55 98 21 08/06/17 17:11 54 08/06/17 16:24 62 08/06/17 15:45 97.6 56 18 117/59 (78) 98 08/06/17 15:44 56 08/06/17 14:01 60 08/06/17 13:27 72 08/06/17 12:53 62 08/06/17 11:31 97.8 80 18 96/58 (71) 97 08/06/17 11:00 72 I/O 08/06/17 08/06/17 08/06/17 08/07/17 08/07/17 08/07/17 07:00 15:00 23:00 07:00 15:00 23:00 Intake Total 240 ml 682 ml 480 ml Output Total 1550 ml 400 ml 700 ml Balance -1310 ml 282 ml -220 ml Intake Oral 240 ml 480 ml 480 ml IV Total 202 ml Output Urine Total 1550 ml 400 ml 700 ml # Bowel Movements 0 0 Result Diagram: 08/07/17 0409 08/06/17 0239 Objective Remarks 4/6 ejection murmur , clear lungs bilaterally otherwise, no cyanosis, no clubbing, no labored breathing No acute distress, good skin color, awake alert A/P Assessment and Plan 82-year-old male presents to the emergency department with chest pain and elevated troponins. 1. NSTEMI CABG anticipated in AM on lopressor, lipitor, heparin, imdur 2. CKD stable 3. HLD/BPH/GERD Continue home medications including terazosin FEN diet Electrolytes: monitor and replete prn Heparin ggt Fidel Umana MD Aug 07, 2017 10:02
[2017-08-07] MEDS: ATORVASTATIN 40 MG TAB PO SCH (21:06)
[2017-08-07] MEDS: TERAZOSIN HCL 1 MG CAP PO SCH (21:06)
[2017-08-08] VITALS (29 sets, daily range): BP systolic 75–121; BP diastolic 34–69; PULSE 50–131; RESP 14–18; TEMP 96.7–98.9; O2SAT 90–99
[2017-08-08] MEDS ORDERED: CHLORHEXIDINE GLUCONATE 2 % 1 PACK (2 CLOTHS) TOPICAL PRN (04:00)
[2017-08-08] MEDS ORDERED: SODIUM CHLORID 0.9% 500 ML IV PRN (04:00)
[2017-08-08] MEDS ORDERED: INSULIN HUMAN REGULAR 1,000 UNITS/10 ML VIAL SQ PRN (04:00)
[2017-08-08] MEDS ORDERED: LACTATED RINGER'S 1000 ML IV PRN (04:00)
[2017-08-08] MEDS ORDERED: POVIDONE IODINE 5% (ANTISEPSIS KIT) 4 APPLICATIONS EACH NARE PRN (04:00)
[2017-08-08] MEDS ORDERED: CALCIUM CHLORIDE 10% SOLN 1 GRAM/10 ML SYR IV ONE (05:00)
[2017-08-08] MEDS ORDERED: LIDOCAINE HCL 2% 100 MG/5 ML SYRINGE IV PUSH ONE (05:00)
[2017-08-08] MEDS ORDERED: SODIUM BICARBONATE 8.4% INJ 50 MEQ/50 ML SYR IV ONE (05:00)
[2017-08-08] MEDS ORDERED: EPINEPHrine HCL (1:10,000) 1 MG/10 ML SYRINGE IV ONE (05:00)
[2017-08-08] MEDS ORDERED: AMIODARONE HCL 150 MG/3 ML VIAL IV ONE (05:00)
[2017-08-08] MEDS ORDERED: ADENOSINE IV SOLN 3 MG/ML 2 ML VIAL IV PUSH ONE (05:00)
[2017-08-08] MEDS ORDERED: DOPamine INJ PREMIX 500 ML IV ONE (05:00)
[2017-08-08] MEDS ORDERED: LIDOCAINE/D5W 2000 MG/500 ML 500 ML IV ONE (05:00)
[2017-08-08 06:08] LABS: APTT (PATIENT) 48.7 SEC (24.3-30.1)
[2017-08-08] MEDS ORDERED: VANCOMYCIN HCL 1000 MG VIAL ONE (06:23)
[2017-08-08] MEDS ORDERED: HEPARIN SODIUM - SQ 10,000 UNITS/ML VIAL ONE (06:23)
[2017-08-08] MEDS ORDERED: ceFAZolin 2 GM PREMIX 50 ML ONE (06:23)
[2017-08-08] MEDS: PANTOPRAZOLE SOD 20 MG DELAYED RELEASE TAB PO SCH ×2 (07:00→16:00)
[2017-08-08] MEDS: ISOSORBIDE MONONITRATE 30 MG TAB PO SCH (07:00)
[2017-08-08] MEDS: SODIUM CHLORIDE 0.9% FLUSH 10 ML FLUSH IV FLUSH SCH ×2 (09:00→21:00)
[2017-08-08] MEDS: METOPROLOL TARTRATE 25 MG TAB PO SCH ×2 (09:00→21:00)
[2017-08-08] MEDS ORDERED: POTASSIUM CHLOR 40 MEQ PREMIX 100 ML ONE (10:30)
[2017-08-08] MEDS ORDERED: DEXMEDETOMIDINE HCL 200 MCG/2 ML VIAL ONE (10:33)
[2017-08-08] MEDS ORDERED: ceFAZolin INJ 1,000 MG VIAL ONE (11:46)
[2017-08-08] MEDS ORDERED: MIDAZOLAM HCL 2 MG/2 ML VIAL IV ONE (12:00)
[2017-08-08] MEDS ORDERED: POTASSIUM CHLORIDE 20 MEQ CONTROLLED RELEASE TAB PO PRN ×2 (12:00)
[2017-08-08] MEDS ORDERED: RESP: ALBUTEROL 2.5 MG/IPRATROPIUM 0.5 MG NEB (PRN) NEB ×2 (12:00→14:00)
[2017-08-08] MEDS ORDERED: fentaNYL CITRATE 2500 MCG/50 ML VIAL IV ONE (12:00)
[2017-08-08] MEDS ORDERED: POTASSIUM CHLOR 20 MEQ PREMIX 100 ML IV PRN ×3 (12:00)
--- NOTE | 2017-08-08 12:00 | PD.OP ---
cc: Mago Morris MD; Carlos Sue DO Operative Report Date of Surgery: Aug 08, 2017 Preoperative Diagnosis: Postoperative Diagnosis: Procedure: 1. Urgent Off-pump Coronary Artery Bypass Grafting x 4 with Left Internal Mammary Artery (JUDD) to the Left Anterior Descending (LAD), reverse saphenous vein graft to the Obtuse Marginal 1 (OM1), reverse saphenous vein graft to the Posterior Descending Artery (RPDA), reverse saphenous vein graft to the Diagonal 1 (D1) 2. Left Leg Endoscopic Vein [place] 3. Intraoperative Vein Mapping Surgeon: Mago Morris Twister Tender Paper(s): Mathieu Pelayo Operation and Findings: PREPROCEDURE DIAGNOSES 1. Severe Multi-Vessel Coronary Artery Disease. 2. Acute Myocardial Infarction (NSTEMI) 3. Left Main Disease 4. Mild Left Ventricular Dysfunction POSTPROCEDURE DIAGNOSES Same SURGICAL PROCEDURE 1. Urgent Off-pump Coronary Artery Bypass Grafting x 4 with Left Internal Mammary Artery (JUDD) to the Left Anterior Descending (LAD), reverse saphenous vein graft to the Obtuse Marginal 1 (OM1), reverse saphenous vein graft to the Posterior Descending Artery (RPDA), reverse saphenous vein graft to the Diagonal 1 (D1) 2. Left Leg Endoscopic Vein [place] 3. Intraoperative Vein Mapping SURGEON Mago Morris MD OUTSIDE REPAIRER SPECIAL LIVAN Mares ANESTHESIA General endotracheal PEN RIDER MANDO Lew MD PREPARATION ChloraPrep. COUNTS Needle, sponge, and instrument counts were correct. DRAINS Two 32-[place] mediastinal tubes. COMPLICATIONS None. INDICATIONS FOR PROCEDURE The patient is a 82-year-old presenting with chest pain and multi-vessel coronary artery disease. He is being brought to the operating room for surgical revascularization therapy. PROCEDURE Patient was brought to the operating room and placed supine on the OR table. Following the induction of adequate general endotracheal anesthesia and placement of appropriate monitoring devices, intraoperative vein mapping was performed which revealed suitable-caliber conduit in both legs. The patient was then prepped and draped in standard sterile fashion. Next, 2500 units of intravenous heparin was given. The left greater saphenous vein was harvested endoscopically from the thigh. This appeared to be a useable-caliber conduit. Simultaneously, a median sternotomy was performed and the left internal mammary artery dissected free off the posterior sternal table. The patient was systemically heparinized and anticoagulation monitored by serial ACT measurements. The internal mammary artery had good pulsatile flow in it and was a decent-caliber conduit. The pericardium was then divided in the midline, the cradle created and targets analyzed. At this point, all anastomoses were performed in a beating-heart fashion using the [place] stabilizing system. The left internal mammary artery was anastomosed to the mid LAD (2 mm) in an end-to- side fashion using 7-0 Prolene. The next segment was anastomosed to the OM1 ( 1.75 mm) in an end-to-side fashion using a running 7-0 Prolene. The next segment was anastomosed to the D1 (1.75 mm) in an end-to-side fashion using a running 7-0 Prolene. The final segment was anastomosed to the RPDA (2 mm) in an end-to-side fashion using a running 7-0 Prolene. The proximal anastomoses were then constructed to the ascending aorta in a running manner using 6-0 Prolene. All anastomotic sites were inspected and appeared to be hemostatic and patent. Protamine solution was given. Strict hemostasis was assured. The closure was undertaken. 2 chest tubes were placed. The pericardium was reapproximated in the midline. The sternum was approximated using sternal wires. The muscular and fascial layer were then closed in 3 layers. The endoscopic vein harvest site was closed in 2 layers. The patient tolerated the procedure well and was transferred to CVICU in stable condition. Mago Morris MD Aug 08, 2017 12:00
[2017-08-08] MEDS ORDERED: DEXMEDETOMIDINE INJ 200 MCG in SODIUM CHLORIDE 0.9% INJ 50 ML IV PRN ×2 (12:15→14:15)
[2017-08-08] MEDS ORDERED: SODIUM BICARBONATE 8.4% SOLN 50 MEQ/50 ML VIAL IV PUSH PRN ×2 (12:30)
[2017-08-08] MEDS ORDERED: SODIUM CHLORIDE 0.9% FLUSH 10 ML FLUSH IV FLUSH PRN (12:30)
[2017-08-08] MEDS: EPINEPHrine 2 MG/D5W 250 ML IV PRN ×2 (12:30)
[2017-08-08] MEDS: DOBUTamine PREMIX DRIP 250 ML IV SCH ×2 (12:30→23:50)
[2017-08-08] MEDS ORDERED: NITROGLYCERIN-D5W 50 MG/250 ML 250 ML IV PRN (12:45)
[2017-08-08] MEDS ORDERED: LACTATED RINGER'S 1000 ML INJ 500 ML IV PRN (12:45)
[2017-08-08] MEDS: ALBUMIN 5% INJ 250 ML IV PRN ×2 (12:59→14:16)
[2017-08-08] MEDS ORDERED: MEPERIDINE HCL 25 MG/ML VIAL IV PUSH PRN (13:00)
[2017-08-08] MEDS ORDERED: hydrALAZINE HCL 20 MG/ML VIAL IV PUSH PRN (13:00)
[2017-08-08] MEDS ORDERED: MAGNESIUM SULFATE INJ 2 GM in SODIUM CHLORIDE 0.9% INJ 100 ML IV PRN ×2 (13:00→13:15)
[2017-08-08] MEDS ORDERED: CALCIUM CHLORIDE 10% 1 GRAM/10 ML VIAL IV PUSH PRN (13:00)
[2017-08-08] MEDS ORDERED: CLEVIDIPINE INJ 50 ML IV PRN (13:00)
[2017-08-08] MEDS ORDERED: CALCIUM CHLORIDE INJ 1 GM in SODIUM CHLORIDE 0.9% INJ 100 ML IV PRN (13:00)
[2017-08-08] MEDS ORDERED: ACETAMINOPHEN 650 MG SUPP RECTAL PRN (13:00)
[2017-08-08] MEDS ORDERED: RESP: RACEPINEPHRINE 2.25% 0.5 ML NEB NEB PRN ×2 (13:00→13:15)
[2017-08-08] MEDS ORDERED: DOPamine INJ PREMIX 500 ML IV PRN (13:00)
[2017-08-08] MEDS ORDERED: ACETAMINOPHEN 325 MG TAB PO PRN (13:00)
[2017-08-08] MEDS ORDERED: METOPROLOL TARTRATE 5 MG/5 ML VIAL IV PUSH PRN (13:00)
[2017-08-08] MEDS ORDERED: MORPHINE SULFATE 4 MG/ML INJ IV PUSH PRN (13:00)
[2017-08-08] MEDS ORDERED: DEXTROSE 50% IN WATER 50 ML VIAL(D50) IV PUSH PRN (13:00)
[2017-08-08] MEDS: ACETAMINOPHEN 1000 MG/100 ML 100 ML IV SCH ×2 (13:02→20:21)
--- NOTE | 2017-08-08 13:08 | RADRPT ---
EXAM DATE/TIME: 08/08/2017 12:38 [facility] COMPARISON: CHEST SINGLE AP, August 04, 2017, 16:35. INDICATIONS : Post-op coronary bypass graft surgery. MEDICAL HISTORY : None. SURGICAL HISTORY : None. ENCOUNTER: Initial ACUITY: 4 - 6 days PAIN SCORE: Non-responsive. LOCATION: chest FINDINGS: A single view of the chest demonstrates endotracheal tube, right IJ vas catheter and left-sided chest tube all in good position. There is no evidence of a pneumothorax. There numerous median sternotomy wires. Small left pleural effusion. The cardiomediastinal contours are unremarkable. Osseous struct ures are intact. CONCLUSION: ET tube in good position. Mediastinal drain and left chest tube in good position. No visible pneumoth orax Kofi Glover MD on August 08, 2017 at 13:06 Board Certified Radiologist. This report was verified electronically.
[2017-08-08] MEDS ORDERED: ONDANSETRON HCL 4 MG/2 ML VIAL IV PUSH PRN (13:15)
[2017-08-08] MEDS ORDERED: Post-op Orders (for Pharmacy) MISC OTHER ONE (13:30)
[2017-08-08] MEDS ORDERED: INSULIN REGULAR (IV INFUSION) 100 UNITS in SODIUM CHLORIDE 0.9% INJ 99 ML IV PRN (14:00)
[2017-08-08] MEDS ORDERED: methylPREDNISolone SOD SUCC 125 MG/2 ML VIAL ONE (15:33)
[2017-08-08] MEDS ORDERED: RESP: ALBUTEROL 2.5 MG/IPRATROPIUM 0.5 MG NEB (SCH) NEB (16:00)
[2017-08-08] MEDS: RESP: ALBUTEROL 2.5 MG/IPRATROPIUM 0.5 MG NEB (SCH) NEB ×2 (16:00→20:05)
[2017-08-08] MEDS: ceFAZolin 2 GM PREMIX 50 ML IV SCH ×2 (16:22→23:13)
--- NOTE | 2017-08-08 16:22 | RADRPT ---
EXAM DATE/TIME: 08/08/2017 15:55 [facility] COMPARISON: CHEST SINGLE AP, August 08, 2017, 12:38. INDICATIONS : Evaluate ET tube placement. MEDICAL HISTORY : Hypercholesterolemia. Gastroesophageal reflux disease. Hypertension. Hiatal hernia repair SURGICAL HISTORY : Tonsillectomy. ENCOUNTER: Initial ACUITY: 1 day PAIN SCORE: Non-responsive. LOCATION: Bilateral chest FINDINGS: A single portable frontal view of the chest shows the tip of the endotracheal tube 2 cm cephalad to t he anastacia. Right internal jugular vein central venous line. 2 left-sided thoracostomy tubes. No pneum othorax. Persistent bibasilar atelectasis. This is more pronounced on the left. Tiny left effusion is stable. The heart is at the upper limits of normal in terms of size. Median sternotomy wires. Left u pper lobe parenchymal consolidation is new. CONCLUSION: 1. New left upper lobe parenchymal consolidation. This could relate to developing infiltrate. 2. Tiny left effusion and bibasilar atelectasis. This is stable. 3. No pneumothorax. Matteo Zavala Jr., MD on August 08, 2017 at 16:19 Board Certified Radiologist. This report was verified electronically.
[2017-08-08 16:26] LABS: BLOOD GAS BASE EXCESS -5.6 mmol/L (-2-2); BLOOD GAS CARBOXYHEMOGLOBIN 0.6 % (0-4); BLOOD GAS HCO3 20 mmol/L (22-26); BLOOD GAS METHEMOGLOBIN 1.2 % (0-2); BLOOD GAS O2 HGB SATURATION 94 % (90-100); BLOOD GAS OXYGEN CONTENT 14.1 Vol % (12.0-20.0); BLOOD GAS PCO2 41 mmHg (38-42); BLOOD GAS PO2 94 mmHg (61-120); BLOOD GAS TOTAL HGB 10.6 G/DL (12.0-16.0); TEMP CORR TO 98.6
[2017-08-08 16:27] LABS: CRITICAL VALUE NO; DRAW SITE ART LINE; FIO2 50 %; OXYGEN DEVICE VENTILATOR; STAT NO; VENT SETTINGS SIMV14/600/+5PEEP
[2017-08-08] MEDS ORDERED: TERBUTALINE INJ 1 MG/ML AMP SQ PRN (16:30)
[2017-08-08] MEDS ORDERED: PHENYLEPHRINE INJ 40 MG in DEXTROSE 5% IN WATE 500 ML INJ 496 ML IV PRN ×2 (16:30)
[2017-08-08] MEDS ORDERED: PHENYLEPHRINE HCL 10 MG/ML VIAL ONE (16:32)
[2017-08-08] MEDS: PHENYLEPHRINE INJ 40 MG in DEXTROSE 5% IN WATE 500 ML INJ 496 ML IV PRN ×2 (16:45)
[2017-08-08 17:53] LABS: BICARBONATE 24.6 MEQ/L (21.0-32.0); MAGNESIUM 1.5 MG/DL (1.5-2.5); POTASSIUM 4.2 MEQ/L (3.5-5.1)
--- NOTE | 2017-08-08 18:25 | PD.CONS ---
[facility] Service Critical Care Medicine Consult Requested By Dr. Morris Reason for Consult Management-status post off-pump CABG Primary Care Physician [facility] of Present Illness This is an 82-year-old gentleman with NYHA Class I, recently ruled in for NSTEMI. The patient underwent cardiac catheterization on 08/06 revealing 80% left main, 50% proximal LAD, 20% mid distal LAD, 70% diagonal, and 95% RCA. Today the patient underwent urgent off-pump CABG 4 vessels utilize the JUDD and reverse saphenous vein graft. Intraoperatively reported EF approximately 50 %. The patient was transferred to CVICU, on epinephrine 10 mcgs and dobutamine 2.5 mcgs. The patient was subsequently awakened, a RASS of -1 on Precedex infusion 0.1 mics per kilo per hour. SBT trials were initiated and reported as RSBI 26 FVC 900, positive cuff leak, however NIF was only -10. The patient was extubated, and immediately became hypoxemic, with inability to manually ventilate. Anesthesiology was notified stat ,the patient's O2 saturation decreased to 50%, the patient became bradycardic, approximately 32 mcgs of epinephrine was bolused, chest compressions initiated lasting approximately 20 seconds. The patient was reintubated by Dr. Jain, without any paralytics or sedatives, with immediate resumption of normal oxygenation. Discussion with Dr. Jain upon my arrival concern for CAMI, airway obstruction upon extubation (no oral airway), also possible bronchospasm relieved with epinephrine, as patient was still on Precedex infusion during extubation. Posterior reintubation, GCS 11 T -patient alert and responsive, following commands moving extremities 4. The patient was then placed back on my sedation a Precedex 0.1 mics per kilo per hour. Post intubation the patient's rhythm converted to A. fib RVR ranging from 140s to 160s, with short runs of V. tach, with a MAP in the 50's. Electrolytes were obtained previously the patient was noted to be hypokalemic with a potassium of 3.1 which was currently being repleted ( the patient had received 60 mEq), ionized calcium was noted to be 1.14, which was then being repleted. Phenylephrine infusion was initiated at 60mcgs, epinephrine was decreased dobutamine was maintained at 5 mcgs, with MAP responsive 70's-80's. Review of Systems ROS Limitations: Clinical Condition Past Family Social History Allergies: Coded Allergies: wheat (Unverified Allergy, Intermediate, Rash, 04/29/17) Social History Unable to obtain Physical Exam Vital Signs Vital Signs Date Time Temp Pulse Resp B/P (MAP) Pulse Ox O2 Delivery O2 Flow Rate FiO2 08/08/17 17:12 114 08/08/17 17:12 94 Mechanical Ventilator 50 08/08/17 17:11 50 08/08/17 16:45 120 86/47 08/08/17 16:23 131 08/08/17 15:30 99 Nasal Cannula 6 08/08/17 15:03 99 08/08/17 15:01 97.2 99 15 93/48 (63) 92 08/08/17 14:44 79 128/72 08/08/17 14:35 78 117/53 08/08/17 14:25 Nasal Cannula 40 08/08/17 14:22 104 160/74 08/08/17 14:14 92 08/08/17 13:40 97 50 08/08/17 13:40 96.7 08/08/17 13:24 91 08/08/17 13:19 18 08/08/17 13:18 08/08/17 13:09 60 08/08/17 13:08 94 Mechanical Ventilator 60 08/08/17 12:35 95 60 08/08/17 12:30 97.5 91 18 75/34 (48) 95 08/08/17 12:30 83 75/47 08/08/17 12:30 93 128/47 08/08/17 12:25 90 100 08/08/17 06:00 52 08/08/17 05:00 54 08/08/17 04:45 97.6 16 121/62 (81) 97 08/08/17 04:00 50 08/08/17 03:00 52 08/08/17 02:00 50 08/08/17 01:00 56 08/08/17 00:00 64 08/07/17 23:00 62 08/07/17 23:00 98.2 16 124/59 (80) 95 08/07/17 22:00 62 08/07/17 21:00 64 08/07/17 20:00 58 08/07/17 20:00 98.2 16 111/63 (79) 94 08/07/17 19:00 61 08/07/17 18:02 60 Physical Exam GENERAL: Obese male intubated and lightly sedated SKIN: Warm and dry. HEAD: Atraumatic. Normocephalic. EYES: Pupils equal and round. No scleral icterus. No injection or drainage. ENT: No nasal bleeding or discharge. Mucous membranes pink and moist. NECK: Trachea midline. No JVD. Right IJ Mac catheter-suppresses infusing CARDIOVASCULAR: Irregular rhythm, irregular rate. 12-lead EKG A. fib RVR. Mediastinal chest tubes serosanguineous fluid 170 cc RESPIRATORY: Mechanical ventilation Clear to auscultation. Breath sounds equal bilaterally. GASTROINTESTINAL: Abdomen soft, non-tender, nondistended. No guarding. MUSCULOSKELETAL: Extremities without clubbing, cyanosis, or edema. No obvious deformities. Left lower extremity status post saphenous vein harvest Sai wrap, toes brisk capillary refill NEUROLOGICAL: GCS 11 T. RASS -2. No gross focal/sensory deficits. Follows commands in all 4 extremities. Her history patient is hard of hearing, has a history of a CVA with right arm weakness as baseline Laboratory Laboratory Tests Test 08/08/17 04:00 08/08/17 16:15 08/08/17 17:00 Activated Partial Thromboplast Time 48.7 Blood Gas Puncture Site ART LINE Blood Gas Patient Temperature 98.6 Blood Gas HCO3 20 Blood Gas Base Excess -5.6 Blood Gas Oxygen Saturation 94 Arterial Blood pH 7.31 Arterial Blood Partial Pressure CO2 41 Arterial Blood Partial Pressure O2 94 Arterial Blood Oxygen Content 14.1 Arterial Blood Carboxyhemoglobin 0.6 Arterial Blood Methemoglobin 1.2 Blood Gas Hemoglobin 10.6 Oxygen Delivery Device VENTILATOR Blood Gas Ventilator Setting SIMV14/600/+5PEEP Blood Gas Inspired Oxygen 50 Result Diagram: 08/07/17 0409 08/06/17 0239 Septic Shock Reassessment Heart: Irregular Lungs: Clear Skin: Warm, [place] Peripheral Pulses: Bounding Right Radial Bounding Left Radial Assessment and Plan Assessment and Plan Assessment This is a 82-year-old male with NYHA 1, NSTEMI, with multivessel coronary artery disease, S/P off-pump CABG x 4 vessels. Patient is status post extubation with respiratory arrest, with reintubation and subsequent hemodynamic instability. Patient is critical. Plan Neurologic: History of CVA 1 year ago-mild deficits reportedly left facial droop and right arm weakness Hard of Hearing Continue low-dose Precedex infusion for ventilator synchrony Sedation vacation in a.m. GCS 11 T-positive gag, extremity reflexes intact Respiratory: Acute Hypoxemic Respiratory Failure CAMI? Reintubation 8.0 ETT 24 cm at the lip Maintain O2 saturation greater than 92% ABG and chest x-ray as clinically indicated Mechanical ventilation settings 14/600/5/50% Begin CPAP trials and SBT in a.m.-plan for extubation on to BiPAP Cardiovascular: S/P off-pump CABG 4 NYHA Classification 1 A. fib RVR Hyperlipidemia Multiple runs of V. tach Right carotid artery stenosis Maintain MAP greater than 65 Initial heart rate 140s-160s, MAP 50s. Began Phenylephrine infusion currently @40 mcgs, maintain dobutamine 5 mcg/kg, weaning/decrease epinephrine infusion. MAP ranging 70-80's Renal: BPH Maintain Eisenberg catheter, while intubated -- Strict I/Os FEN/GI: Electrolyte disturbances Replete electrolytes per CVICU protocol Hypokalemia Hypocalcemia Monitor BMP F/U Mag level, and potassium level tonight Heme/ID: Monitor CBC HGB currently 9.1 Endocrine: Hyperglycemia Insulin infusion per CTS surgery / CVICU protocol -- SSI Prophylaxis: GI Prophylaxis Protonix DVT Prophylaxis -- SCDs Anticoagulant management per CT surgery Lines: Central line in situ right IJ, left radial A-line Dispo: This patient remains critically ill with one or more organ systems which are or may become a threat to life. I have spent in excess of 67 minutes discontinuously in the care and management of this patient. This time is exclusive of procedures, and includes, but is not limited to, evaluation of the patient, review of the medical record, discussions with family, consultants, nursing staff, or respiratory therapy, and documentation in the medical record. Code Status Full Discussed Condition With Dr. Jain, dr. Morris and ROBOTICS ENGINEER at bedside Angela Snyder MD Aug 08, 2017 18:25
[2017-08-08] MEDS: MAGNESIUM SULFATE 1 GM PREMIX 100 ML IV SCH ×2 (18:43→20:22)
[2017-08-08] MEDS: ATORVASTATIN 40 MG TAB PO SCH (21:00)
[2017-08-08] MEDS: AMIODARONE 200 MG TAB PO SCH (21:00)
[2017-08-08] MEDS: TERAZOSIN HCL 1 MG CAP PO SCH (21:00)
[2017-08-09] VITALS (12 sets, daily range): BP systolic 89–120; BP diastolic 44–62; PULSE 71–90; RESP 14–18; TEMP 97.5–99.2; O2SAT 90–97
[2017-08-09] MEDS: ACETAMINOPHEN 1000 MG/100 ML 100 ML IV SCH ×5 (01:23→21:19)
[2017-08-09] MEDS: RESP: ALBUTEROL 2.5 MG/IPRATROPIUM 0.5 MG NEB (SCH) NEB ×4 (03:16→21:03)
--- NOTE | 2017-08-09 04:18 | RADRPT ---
EXAM DATE/TIME: 08/09/2017 03:13 [facility] COMPARISON: CHEST SINGLE AP, August 08, 2017, 15:55. INDICATIONS : Shortness of breath, possible pneumothorax post-op CABG. MEDICAL HISTORY : Hypercholesterolemia. Gastroesophageal reflux disease. Hypertension. SURGICAL HISTORY : CABG. Tonsillectomy. Hiatal hernia repair. ENCOUNTER: Subsequent ACUITY: 2 days PAIN SCORE: Non-responsive. LOCATION: Bilateral chest FINDINGS: A single AP semierect view of the chest was obtained. The patient is again noted to be status post me natalie sternotomy with mediastinal chest tube and left-sided chest tube in place. There is no pneumotho rax. The endotracheal tube remains in place with the tip 2 cm above the anastacia. A nasogastric tube is seen coursing through the esophagus into the stomach. The right internal jugular central venous line remains in place. Hazy opacity remains in the left upper lobe and lung base with blunting of the cos tophrenic angle. The heart size is mildly prominent. CONCLUSION: 1. Hazy opacity remains in the left lung greatest at the lung base. There is evidence of left effusio n. 2. Status post median sternotomy with no pneumothorax. Kyle Velasco MD on August 09, 2017 at 4:16 Board Certified Radiologist. This report was verified electronically.
[2017-08-09 05:34] LABS: MEAN CELL VOLUME 86.2 FL (80.0-100.0); MEAN CORPUSCULAR HEMOGLOBIN 29.3 PG (27.0-34.0); PLATELET COUNT 169 TH/MM3 (150-450); RED BLOOD COUNT 3.25 MIL/MM3 (4.50-5.90); RED CELL DISTRIBUTION WIDTH 15.3 % (11.6-17.2); REVIEW FLAG FINAL; WHITE BLOOD COUNT 12.8 TH/MM3 (4.0-11.0)
[2017-08-09] MEDS ORDERED: PANTOPRAZOLE SOD 40 MG DELAYED RELEASE TAB PO SCH (06:00)
[2017-08-09] MEDS: PHENYLEPHRINE INJ 40 MG in DEXTROSE 5% IN WATE 500 ML INJ 496 ML IV PRN ×2 (06:00)
[2017-08-09 06:13] LABS: BICARBONATE 26.6 MEQ/L (21.0-32.0); MAGNESIUM 1.7 MG/DL (1.5-2.5)
[2017-08-09 06:38] LABS: BLOOD GAS BASE EXCESS 0.6 mmol/L (-2-2); BLOOD GAS HCO3 24 mmol/L (22-26); BLOOD GAS METHEMOGLOBIN 1.1 % (0-2); BLOOD GAS O2 HGB SATURATION 95 % (90-100); BLOOD GAS OXYGEN CONTENT 12.2 Vol % (12.0-20.0); BLOOD GAS PCO2 35 mmHg (38-42); BLOOD GAS PO2 88 mmHg (61-120); BLOOD GAS TOTAL HGB 9.1 G/DL (12.0-16.0); CRITICAL VALUE NO; FIO2 40 %; OXYGEN DEVICE VENTILATOR; TEMP CORR TO 98.6
[2017-08-09 06:39] LABS: DRAW SITE ALINE; STAT NO
[2017-08-09] MEDS: ISOSORBIDE MONONITRATE 30 MG TAB PO SCH (07:00)
[2017-08-09] MEDS: PANTOPRAZOLE SOD 20 MG DELAYED RELEASE TAB PO SCH ×2 (07:00→15:38)
[2017-08-09] MEDS: ceFAZolin 2 GM PREMIX 50 ML IV SCH ×3 (08:08→23:48)
[2017-08-09] MEDS: EPINEPHrine 2 MG/D5W 250 ML IV PRN ×4 (08:08→18:18)
[2017-08-09] MEDS: DOBUTamine PREMIX DRIP 250 ML IV SCH (08:24)
--- NOTE | 2017-08-09 08:33 | EKG ---
Date Performed: 08/09/2017 Time Performed: 06:25:40 PTAGE: 82 years EKG: Sinus rhythm Left axis deviation Inferior infarct - age undetermined Non-Specific ST/T waves changes Abnormal ECG PREVIOUS TRACING : 08/08/2017 16.22 Compared to the previous tracing, now noted to be in normal sinus rhythm DOCTOR: Carlos Sue Interpretating Date/Time 08/09/2017 08:30:56
[2017-08-09] MEDS: METOPROLOL TARTRATE 25 MG TAB PO SCH ×2 (09:00→21:20)
[2017-08-09] MEDS: SODIUM CHLORIDE 0.9% FLUSH 10 ML FLUSH IV FLUSH SCH ×2 (09:00→21:00)
--- NOTE | 2017-08-09 09:18 | PD.CAR.PN ---
CVT Progress Note Subjective/Hospital Course: 82-year-old male , patient of Dr. Hope Golden at the [place] on the blue team. Bar Chopra , apparently started having some burning in his chest on Friday , noticed it after he was eating something. On Friday he seemed to be doing okay and then Friday he went to the [place] for hearing test and his burning sensation started again, they did an electrocardiogram which is slightly abnormal and he was transferred over to the [facility] emergency room and had a work up. His electrocardiogram showed some moderate ST depression aVL, lead I , his troponins were elevated the highest at 14.1. He was ruled in for a non- STEMI. He underwent cardiac catheterization today which showed a left main disease of 80% proximal LAD 50%. The mid and distal LAD 20%. The diagonal 70% . The circ was 10. The OM 20%. The RCA 95%. 2-D echo shoed Ef 40% ( grade 1 diastolic dysfunction) mild MR. mild TR. We were consulted to evaluate for coronary artery bypass grafting. PAST MEDICAL HISTORY: History of cerebrovascular accident 1 year ago with a minimal speech defect, very light left facial drooping, mild right weakness in his arm.( hx of Left CEA 2 years ago ) current carotid US shows 50-70% stenosis right ICA 120sec velocity Benign prostatic hypertrophy Hyperlipidemia Cervical spondylosis. Esophageal dysphasia Hearing loss. 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 [employer] tobacco abuse , quit 4 months ago Plavix last dose was on the PRU 08/06 (224) 08/06 remains on Heparin gtt, Dr Morris will discuss surgical options with pt today He will need f/u with Dr Soares as outpt for carotid stenosis , and resumed on plavix postop He remains pain free PFT pending 08/08 Procedure: 1. Urgent Off-pump Coronary Artery Bypass Grafting x 4 with Left Internal Mammary Artery (JUDD) to the Left Anterior Descending (LAD), reverse saphenous vein graft to the Obtuse Marginal 1 (OM1), reverse saphenous vein graft to the Posterior Descending Artery (RPDA), reverse saphenous vein graft to the Diagonal 1 (D1) 2. Left Leg Endoscopic Vein [place] 3. Intraoperative Vein Mapping 08/09 Reintubated right after extubation yesterday. Awake and alert this morning. Wean to extubate Wean Epi and Dobutamine as tolerated Greatly appreciate Dr. Snyder's assistance Maintain CT to drainage Objective: Vital Signs Date Time Temp Pulse Resp B/P (MAP) Pulse Ox O2 Delivery O2 Flow Rate FiO2 08/09/17 08:24 82 107/54 08/09/17 08:08 83 107/54 08/09/17 06:50 16 08/09/17 06:16 75 105/54 08/09/17 06:00 75 106/54 08/09/17 04:00 96 Mechanical Ventilator 40 08/09/17 04:00 50 08/09/17 03:37 69 105/42 08/09/17 03:20 76 08/09/17 03:17 95 40 08/09/17 03:00 97.5 71 14 104/45 (64) 94 95/49 (64) 08/09/17 00:00 98 Mechanical Ventilator 50 08/09/17 00:00 50 08/08/17 23:55 62 08/08/17 23:50 64 95/46 08/08/17 23:41 98 40 08/08/17 23:40 14 08/08/17 23:40 64 95/46 08/08/17 23:30 98.9 08/08/17 23:00 97.5 71 14 104/46 (65) 98 105/53 (70) 08/08/17 21:04 72 111/52 08/08/17 21:04 72 111/52 08/08/17 21:04 72 111/52 08/08/17 20:05 98 50 08/08/17 20:00 50 08/08/17 20:00 98 Mechanical Ventilator 50 08/08/17 20:00 72 08/08/17 19:16 71 129/56 08/08/17 19:00 78 08/08/17 19:00 97.5 71 14 121/53 (75) 98 118/69 (85) Manual Cuff/Auscultation 08/08/17 18:04 120 08/08/17 17:41 97.1 08/08/17 17:12 114 08/08/17 17:12 94 Mechanical Ventilator 50 08/08/17 17:11 50 08/08/17 16:45 120 86/47 08/08/17 16:23 131 08/08/17 15:45 95 50 08/08/17 15:30 99 Nasal Cannula 6 08/08/17 15:03 99 08/08/17 15:01 97.2 99 15 93/48 (63) 92 08/08/17 14:44 79 128/72 08/08/17 14:35 78 117/53 08/08/17 14:25 Nasal Cannula 40 08/08/17 14:22 104 160/74 08/08/17 14:14 92 08/08/17 13:40 97 50 08/08/17 13:40 96.7 08/08/17 13:24 91 08/08/17 13:18 08/08/17 13:09 60 08/08/17 13:08 94 Mechanical Ventilator 60 08/08/17 12:35 95 60 08/08/17 12:30 97.5 91 18 75/34 (48) 95 08/08/17 12:30 83 75/47 08/08/17 12:30 93 128/47 08/08/17 12:25 90 100 Labs: Laboratory Tests Test 08/09/17 05:00 08/09/17 06:30 White Blood Count 12.8 TH/MM3 (4.0-11.0) Red Blood Count 3.25 MIL/MM3 (4.50-5.90) Hemoglobin 9.5 GM/DL (13.0-17.0) Hematocrit 28.0 % (39.0-51.0) Mean Corpuscular Volume 86.2 FL (80.0-100.0) Mean Corpuscular Hemoglobin 29.3 PG (27.0-34.0) Mean Corpuscular Hemoglobin Concent 34.0 % (32.0-36.0) Red Cell Distribution Width 15.3 % (11.6-17.2) Platelet Count 169 TH/MM3 (150-450) Mean Platelet Volume 8.5 FL (7.0-11.0) Blood Urea Nitrogen 15 MG/DL (7-18) Creatinine 1.20 MG/DL (0.60-1.30) Random Glucose 121 MG/DL (74-106) Calcium Level 8.4 MG/DL (8.5-10.1) Magnesium Level 1.7 MG/DL (1.5-2.5) Sodium Level 141 MEQ/L (136-145) Potassium Level 4.0 MEQ/L (3.5-5.1) Chloride Level 106 MEQ/L (98-107) Carbon Dioxide Level 26.6 MEQ/L (21.0-32.0) Anion Gap 8 MEQ/L (5-15) Estimat Glomerular Filtration Rate 58 ML/MIN (>89) Blood Gas Puncture Site FLACA Blood Gas Patient Temperature 98.6 Blood Gas HCO3 24 mmol/L (22-26) Blood Gas Base Excess 0.6 mmol/L (-2-2) Blood Gas Oxygen Saturation 95 % (90-100) Arterial Blood pH 7.46 (7.380-7.420) Arterial Blood Partial Pressure CO2 35 mmHg (38-42) Arterial Blood Partial Pressure O2 88 mmHg (61-120) Arterial Blood Oxygen Content 12.2 Vol % (12.0-20.0) Arterial Blood Carboxyhemoglobin 1.0 % (0-4) Arterial Blood Methemoglobin 1.1 % (0-2) Blood Gas Hemoglobin 9.1 G/DL (12.0-16.0) Oxygen Delivery Device VENTILATOR Blood Gas Ventilator Setting SEE COMMENT Blood Gas Inspired Oxygen 40 % Result Diagram: 08/09/17 0500 08/09/17 0500 (1) Chronic kidney disease (2) Diastolic congestive heart failure, NYHA class 1 (3) History of CVA (cerebrovascular accident) (4) Coronary artery disease Plan: eval for surgery , possible on friday will need to allow time to improve PRU (5) Hyperlipemia (6) COPD (chronic obstructive pulmonary disease) (7) Carotid stenosis, right Mago Morris MD Aug 09, 2017 09:18
--- NOTE | 2017-08-09 10:51 | PD.CARD.PN ---
Subjective Subjective Remarks Events yesterday noted Currently awake on the vent, writing down words on paper to speak No complaints Objective Medications Current Medications Medications (Trade) Dose Ordered Sig/Vince Route Start Time Stop Time Status Last Admin (Lopressor) 12.5 mg BID PO 08/05/17 09:00 08/07/17 21:06 (Hytrin) 2 mg HS PO 08/05/17 21:00 08/07/17 21:06 (Protonix) 20 mg BIDAC PO 08/05/17 07:00 08/07/17 16:08 (Lipitor) 40 mg HS PO 08/05/17 10:30 08/07/17 21:06 (Imdur) 30 mg DAILY@07 PO 08/06/17 07:00 08/06/17 07:13 Heparin Sodium/ Dextrose 250 ml @ 10 mls/hr TITRATE PRN IV 08/05/17 19:30 08/07/17 07:11 Papaverine HCl 60 mg/Nitroglycerin 100 mcg/Diltiazem HCl 100 mg/Sodium Chloride 100 ml @ 0 mls/hr HEAD BONE GRINDER IRRIGATION 08/06/17 12:15 08/13/17 12:14 08/08/17 10:36 Cefazolin Sodium 500 mg/Sodium Chloride 505 ml @ 0 mls/hr HEAD BONE GRINDER IRRIGATION 08/06/17 12:15 08/13/17 12:14 08/08/17 10:39 Cefazolin Sodium/ Dextrose 50 ml @ 150 mls/hr HEAD BONE GRINDER IV 08/06/17 12:15 08/13/17 12:14 (Lopressor) 12.5 mg HEAD BONE GRINDER PO 08/06/17 12:15 08/13/17 12:14 08/08/17 05:14 (Hibiclens 4% Top Soln) 1 applic HEAD BONE GRINDER TOPICAL 08/06/17 12:15 08/13/17 12:14 Lactated Ringer's 1,000 ml @ 30 mls/hr Q24H PRN IV 08/08/17 04:00 08/11/17 03:59 08/08/17 12:30 Sodium Chloride 500 ml @ 30 mls/hr [id number] PRN IV 08/08/17 04:00 08/11/17 03:59 (Betadine 5% Antisepsis Kit) 1 applic HEAD BONE GRINDER PRN EACH NARE 08/08/17 04:00 08/11/17 03:59 (Chlorhexidine 2% Cloth) 3 pack HEAD BONE GRINDER PRN TOPICAL 08/08/17 04:00 08/11/17 03:59 (NovoLIN R INJ) See Protocol Table ... HEAD BONE GRINDER PRN SQ 08/08/17 04:00 08/11/17 03:59 (NS Flush) 2 ml BID IV FLUSH 08/08/17 21:00 (NS Flush) 2 ml UNSCH PRN IV FLUSH 08/08/17 12:30 Nitroglycerin/ Dextrose 250 ml @ 1.5 mls/hr TITRATE PRN IV 08/08/17 12:45 Dobutamine HCl/ Dextrose 250 ml @ 12.525 mls/ hr [id number] IV 08/08/17 12:30 08/09/17 08:24 Dopamine HCl/ Dextrose 500 ml @ 9.394 mls/ hr TITRATE PRN IV 08/08/17 13:00 Phenylephrine HCl 40 mg/Dextrose 500 ml @ 30 mls/hr TITRATE PRN IV 08/08/17 12:45 08/09/17 06:00 Clevidipine 50 ml @ 2 mls/hr TITRATE PRN IV 08/08/17 13:00 Albumin Human 250 ml @ 250 mls/hr UNSCH PRN IV 08/08/17 13:00 08/08/17 14:16 Lactated Ringer's 500 ml @ 500 mls/hr Q1H PRN IV 08/08/17 12:45 (Aspirin Chew) 81 mg DAILY PO 08/09/17 09:00 (Plavix) 75 mg DAILY PO 08/09/17 09:00 (Cordarone) 200 mg Q12HR PO 08/08/17 21:00 (Tylenol) 650 mg Q4H PRN PO 08/08/17 13:00 (Tylenol Supp) 650 mg Q4H PRN RECTAL 08/08/17 13:00 (Morphine Inj) 1 mg Q10M PRN IV PUSH 08/08/17 13:00 (Demerol Inj) 12.5 mg Q4H PRN IV PUSH 08/08/17 13:00 ([place] 5-325 Mg) 1 tab Q3H PRN PO 08/08/17 13:00 (fentaNYL INJ) 25 mcg Q1H PRN IV PUSH 08/08/17 13:00 08/08/17 22:37 (Zofran Inj) 4 mg Q6H PRN IV PUSH 08/08/17 13:15 08/08/17 23:11 (Apresoline Inj) 10 mg Q4H PRN IV PUSH 08/08/17 13:00 (Lopressor Inj) 2.5 mg Q1H PRN IV PUSH 08/08/17 13:00 Potassium Chloride 100 ml @ 50 mls/hr UNSCH PRN IV 08/08/17 12:00 Potassium Chloride 100 ml @ 50 mls/hr UNSCH PRN IV 08/08/17 12:00 08/08/17 16:10 (KCl) 20 meq UNSCH PRN PO 08/08/17 12:00 (KCl) 40 meq UNSCH PRN PO 08/08/17 12:00 Magnesium Sulfate 2 gm/Sodium Chloride 104 ml @ 100 mls/hr UNSCH PRN IV 08/08/17 13:00 (Calcium Chloride Inj) 0.5 gm UNSCH PRN IV PUSH 08/08/17 13:00 Insulin Human Regular 100 units/ Sodium Chloride 100 ml @ 3 mls/hr TITRATE PRN IV 08/08/17 14:00 08/09/17 01:49 (D50w (Vial) Inj) 50 ml UNSCH PRN IV PUSH 08/08/17 13:00 Cefazolin Sodium/ Dextrose 50 ml @ 100 mls/hr Q8H IV 08/08/17 16:00 08/10/17 00:29 08/09/17 08:08 (Sodium Bicarbonate 8.4% Inj) 50 meq UNSCH PRN IV PUSH 08/08/17 12:30 08/08/17 16:35 (Sodium Bicarbonate 8.4% Inj) 100 meq UNSCH PRN IV PUSH 08/08/17 12:30 (Duoneb Neb) 1 ampule Q6HR NEB NEB 08/08/17 16:00 08/09/17 09:22 (Duoneb Neb) 1 ampule Q2HR NEB PRN NEB 08/08/17 12:00 (Racepinephrine 2.25% Neb) 0.5 ml UNSCH X1 PRN NEB 08/08/17 13:00 08/10/17 23:59 Epinephrine HCl 2 mg/Dextrose 250 ml @ 75 mls/hr TITRATE PRN IV 08/08/17 12:30 08/09/17 08:08 Dexmedetomidine HCl 200 mcg/ Sodium Chloride 52 ml @ 8.68 mls/hr TITRATE PRN IV 08/08/17 14:15 08/08/17 21:48 Phenylephrine HCl 40 mg/Dextrose 500 ml @ 30 mls/hr TITRATE PRN IV 08/08/17 16:30 (Brethine Inj) 1 mg UNSCH PRN SQ 08/08/17 16:30 Acetaminophen 100 ml @ 400 mls/hr Q6H IV 08/09/17 10:00 08/09/17 10:09 Vital Signs / I&O Vital Signs Date Time Temp Pulse Resp B/P (MAP) Pulse Ox O2 Delivery O2 Flow Rate FiO2 08/09/17 08:24 82 107/54 08/09/17 08:08 83 107/54 08/09/17 07:01 97 40 08/09/17 06:50 16 08/09/17 06:16 75 105/54 08/09/17 06:00 75 106/54 08/09/17 04:00 96 Mechanical Ventilator 40 08/09/17 04:00 50 08/09/17 03:37 69 105/42 08/09/17 03:20 76 08/09/17 03:17 95 40 08/09/17 03:00 97.5 71 14 104/45 (64) 94 95/49 (64) 08/09/17 00:00 98 Mechanical Ventilator 50 08/09/17 00:00 50 08/08/17 23:55 62 08/08/17 23:50 64 95/46 08/08/17 23:41 98 40 08/08/17 23:40 14 08/08/17 23:40 64 95/46 08/08/17 23:30 98.9 08/08/17 23:00 97.5 71 14 104/46 (65) 98 105/53 (70) 08/08/17 21:04 72 111/52 08/08/17 21:04 72 111/52 08/08/17 21:04 72 111/52 08/08/17 20:05 98 50 08/08/17 20:00 50 08/08/17 20:00 98 Mechanical Ventilator 50 08/08/17 20:00 72 08/08/17 19:16 71 129/56 08/08/17 19:00 78 08/08/17 19:00 97.5 71 14 121/53 (75) 98 118/69 (85) Manual Cuff/Auscultation 08/08/17 18:04 120 08/08/17 17:41 97.1 08/08/17 17:12 114 08/08/17 17:12 94 Mechanical Ventilator 50 08/08/17 17:11 50 08/08/17 16:45 120 86/47 08/08/17 16:23 131 08/08/17 15:45 95 50 08/08/17 15:30 99 Nasal Cannula 6 08/08/17 15:03 99 08/08/17 15:01 97.2 99 15 93/48 (63) 92 08/08/17 14:44 79 128/72 08/08/17 14:35 78 117/53 08/08/17 14:25 Nasal Cannula 40 08/08/17 14:22 104 160/74 08/08/17 14:14 92 08/08/17 13:40 97 50 08/08/17 13:40 96.7 08/08/17 13:24 91 08/08/17 13:18 08/08/17 13:09 60 08/08/17 13:08 94 Mechanical Ventilator 60 08/08/17 12:35 95 60 08/08/17 12:30 97.5 91 18 75/34 (48) 95 08/08/17 12:30 83 75/47 08/08/17 12:30 93 128/47 08/08/17 12:25 90 100 I/O 08/08/17 08/08/17 08/08/17 08/09/17 08/09/17 08/09/17 07:00 15:00 23:00 07:00 15:00 23:00 Intake Total 240 ml 6150 ml 5510 ml 2285 ml 100 ml Output Total 600 ml 600 ml 1340 ml 1535 ml Balance -360 ml 5550 ml 4170 ml 750 ml 100 ml Intake Oral 240 ml 0 ml IV Total 450 ml 1510 ml 2285 ml 100 ml Autotransfusion 1200 ml Other 4500 ml 4000 ml Output Urine Total 600 ml 600 ml 1100 ml 1375 ml Stool Total 0 ml Chest Tube Drainage Total 240 ml 160 ml # Bowel Movements 0 0 Physical Exam GENERAL: NAD, alert on the vent SKIN: Warm and dry. HEAD: Atraumatic. Normocephalic. EYES: Pupils equal and round. No scleral icterus. No injection or drainage. ENT: No nasal bleeding or discharge. Mucous membranes pink and moist. NECK: Trachea midline. No JVD. CARDIOVASCULAR: Regular rate and rhythm. RESPIRATORY: No accessory muscle use. Clear to auscultation. Breath sounds equal bilaterally. GASTROINTESTINAL: Abdomen soft, non-tender, nondistended. Hepatic and splenic margins not palpable. MUSCULOSKELETAL: Extremities without clubbing, cyanosis, or edema. No obvious deformities. NEUROLOGICAL: Awake and alert. Moving all 4 extremities Laboratory Laboratory Tests Test 08/08/17 16:15 08/08/17 17:00 08/09/17 05:00 08/09/17 06:30 Blood Gas Puncture Site ART LINE [place] Blood Gas Patient Temperature 98.6 98.6 Blood Gas HCO3 20 mmol/L 24 mmol/L Blood Gas Base Excess -5.6 mmol/L 0.6 mmol/L Blood Gas Oxygen Saturation 94 % 95 % Arterial Blood pH 7.31 7.46 Arterial Blood Partial Pressure CO2 41 mmHg 35 mmHg Arterial Blood Partial Pressure O2 94 mmHg 88 mmHg Arterial Blood Oxygen Content 14.1 Vol % 12.2 Vol % Arterial Blood Carboxyhemoglobin 0.6 % 1.0 % Arterial Blood Methemoglobin 1.2 % 1.1 % Blood Gas Hemoglobin 10.6 G/DL 9.1 G/DL Oxygen Delivery Device VENTILATOR VENTILATOR Blood Gas Ventilator Setting [id number] SEE COMMENT Blood Gas Inspired Oxygen 50 % 40 % Blood Urea Nitrogen 15 MG/DL 15 MG/DL Creatinine 1.25 MG/DL 1.20 MG/DL Random Glucose 121 MG/DL 121 MG/DL Calcium Level 10.2 MG/DL 8.4 MG/DL Magnesium Level 1.5 MG/DL 1.7 MG/DL Sodium Level 146 MEQ/L 141 MEQ/L Potassium Level 4.2 MEQ/L 4.0 MEQ/L Chloride Level 111 MEQ/L 106 MEQ/L Carbon Dioxide Level 24.6 MEQ/L 26.6 MEQ/L Anion Gap 10 MEQ/L 8 MEQ/L Estimat Glomerular Filtration Rate 55 ML/MIN 58 ML/MIN White Blood Count 12.8 TH/MM3 Red Blood Count 3.25 MIL/MM3 Hemoglobin 9.5 GM/DL Hematocrit 28.0 % Mean Corpuscular Volume 86.2 FL Mean Corpuscular Hemoglobin 29.3 PG Mean Corpuscular Hemoglobin Concent 34.0 % Red Cell Distribution Width 15.3 % Platelet Count 169 TH/MM3 Mean Platelet Volume 8.5 FL Imaging Last 24 hours Impressions Chest X-Ray 08/09/17 0500 Signed Impressions: Service Date/Time: Wednesday, August 09, 2017 03:13 - CONCLUSION: 1. Hazy opacity remains in the left lung greatest at the lung base. There is evidence of left effusion. 2. Status post median sternotomy with no pneumothorax. Kyle Velasco MD Assessment and Plan Problem List: (1) S/P CABG x 4 ICD Codes: Z95.1 - Presence of aortocoronary bypass graft (2) Chronic kidney disease ICD Codes: N18.9 - Chronic kidney disease, unspecified (3) Diastolic congestive heart failure, NYHA class 1 ICD Codes: I50.30 - Unspecified diastolic (congestive) heart failure (4) History of CVA (cerebrovascular accident) ICD Codes: Z86.73 - Personal history of transient ischemic attack (TIA), and cerebral infarction without residual deficits (5) Coronary artery disease ICD Codes: I25.10 - Atherosclerotic heart disease of [place] coronary artery without angina pectoris (6) Hyperlipemia ICD Codes: E78.5 - Hyperlipidemia, unspecified (7) COPD (chronic obstructive pulmonary disease) ICD Codes: J44.9 - Chronic obstructive pulmonary disease, unspecified (8) Carotid stenosis, right ICD Codes: I65.21 - Occlusion and stenosis of right carotid artery Assessment and Plan 1) MVCAD s/p CABGx4 POD#1 JUDD to LAD SVG to OM1 SVG to PDA SVG to Diag 2) Reintubated Plan for extubated later today 3) Con't Amio/ASA/Plavix/Lipitor/Lopressor 4) Short episode of Afib with RVR yesterday after need for reintubation and after given Epi Will continue to follow on telemetry Will discuss further with patient and CV surgery team, most likely not going to anticoagulate unless further episodes 5) Wean pressors as possible Carlos Sue DO Aug 09, 2017 10:51
[2017-08-09] MEDS ORDERED: GLUCAGON 1 MG/ML VIAL OTHER PRN (11:30)
[2017-08-09] MEDS ORDERED: DEXTROSE 50% IN WATER 50 ML VIAL(D50) IV PUSH PRN (11:30)
--- NOTE | 2017-08-09 12:39 | HHI.CCPN ---
Subjective Remarks/Hospital Course This is an 82-year-old gentleman with NYHA Class I, recently ruled in for NSTEMI. The patient underwent cardiac catheterization on 08/06 revealing 80% left main, 50% proximal LAD, 20% mid distal LAD, 70% diagonal, and 95% RCA. Today the patient underwent urgent off-pump CABG 4 vessels utilize the JUDD and reverse saphenous vein graft. Intraoperatively reported EF approximately 50 %. The patient was transferred to CVICU, on epinephrine 10 mcgs and dobutamine 2.5 mcgs. The patient was subsequently awakened, a RASS of -1 on Precedex infusion 0.1 mics per kilo per hour. SBT trials were initiated and reported as RSBI 26 FVC 900, positive cuff leak, however NIF was only -10. The patient was extubated, and immediately became hypoxemic, with inability to manually ventilate. Anesthesiology was notified stat ,the patient's O2 saturation decreased to 50%, the patient became bradycardic, approximately 32 mcgs of epinephrine was bolused, chest compressions initiated lasting approximately 20 seconds. The patient was reintubated by Dr. Jain, without any paralytics or sedatives, with immediate resumption of normal oxygenation. Discussion with Dr. Jain upon my arrival concern for CAMI, airway obstruction upon extubation (no oral airway), also possible bronchospasm relieved with epinephrine, as patient was still on Precedex infusion during extubation. Posterior reintubation, GCS 11 T -patient alert and responsive, following commands moving extremities 4. The patient was then placed back on my sedation a Precedex 0.1 mics per kilo per hour. Post intubation the patient's rhythm converted to A. fib RVR ranging from 140s to 160s, with short runs of V. tach, with a MAP in the 50's. Electrolytes were obtained previously the patient was noted to be hypokalemic with a potassium of 3.1 which was currently being repleted ( the patient had received 60 mEq), ionized calcium was noted to be 1.14, which was then being repleted. Phenylephrine infusion was initiated at 60mcgs, epinephrine was decreased dobutamine was maintained at 5 mcgs, with MAP responsive 70's-80's. Subjective: 08/09: No acute events overnight. The patient continued on vasopressors without escalation. Patient awake alert oriented, GCS 11T. CPAP trials for approximately 3.5 hours SBT perform, WNL. Patient extubated, O2 sat ranging 95 -97%. Weaning vasopressors as tolerated. Objective Vital Signs Date Time Temp Pulse Resp B/P (MAP) Pulse Ox O2 Delivery O2 Flow Rate FiO2 08/09/17 10:28 92 Venturi Mask 6 50 08/09/17 08:24 82 107/54 08/09/17 06:50 16 08/09/17 03:00 97.5 Intake and Output 08/09/17 08/09/17 08/10/17 08:00 16:00 00:00 Intake Total 2285 ml 100 ml Output Total 1535 ml Balance 750 ml 100 ml Result Diagram: 08/09/17 0500 08/09/17 0500 Other Results Laboratory Tests Test 08/08/17 16:15 08/09/17 06:30 Blood Gas Puncture Site ART LINE FLACA Blood Gas Patient Temperature 98.6 98.6 Blood Gas HCO3 20 mmol/L (22-26) 24 mmol/L (22-26) Blood Gas Base Excess -5.6 mmol/L (-2-2) 0.6 mmol/L (-2-2) Blood Gas Oxygen Saturation 94 % (90-100) 95 % (90-100) Arterial Blood pH 7.31 (7.380-7.420) 7.46 (7.380-7.420) Arterial Blood Partial Pressure CO2 41 mmHg (38-42) 35 mmHg (38-42) Arterial Blood Partial Pressure O2 94 mmHg (61-120) 88 mmHg (61-120) Arterial Blood Oxygen Content 14.1 Vol % (12.0-20.0) 12.2 Vol % (12.0-20.0) Arterial Blood Carboxyhemoglobin 0.6 % (0-4) 1.0 % (0-4) Arterial Blood Methemoglobin 1.2 % (0-2) 1.1 % (0-2) Blood Gas Hemoglobin 10.6 G/DL (12.0-16.0) 9.1 G/DL (12.0-16.0) Oxygen Delivery Device VENTILATOR VENTILATOR Blood Gas Ventilator Setting SIMV14/600/+5PEEP SEE COMMENT Blood Gas Inspired Oxygen 50 % 40 % Imaging Last Impressions Chest X-Ray 08/09/17 0500 Signed Impressions: Service Date/Time: Wednesday, August 09, 2017 03:13 - CONCLUSION: 1. Hazy opacity remains in the left lung greatest at the lung base. There is evidence of left effusion. 2. Status post median sternotomy with no pneumothorax. Kyle Velasco MD Lower Extremity Ultrasound 08/05/17 0000 Signed Impressions: Service Date/Time: Saturday, August 05, 2017 16:25 - CONCLUSION: Bilateral venous mapping as above. Matteo Vega MD Carotid Artery Ultrasound 08/05/17 0000 Signed Impressions: Service Date/Time: Saturday, August 05, 2017 15:56 - CONCLUSION: 1. Abnormal hemodynamic profile in the right internal carotid artery suggesting 50-70%% stenosis. 2. Normal hemodynamic profile on the left side. Matteo Vega MD Objective Remarks GENERAL: Obese male sitting up in bed extubated. Can only speak above a whisper at this time. Currently on voice rest. SKIN: Warm and dry. HEAD: Atraumatic. Normocephalic. EYES: Pupils equal and round. No scleral icterus. No injection or drainage. ENT: No nasal bleeding or discharge. Mucous membranes pink and moist. NECK: Trachea midline. No JVD. Right IJ Mac catheter-suppresses infusing CARDIOVASCULAR: Irregular rhythm, irregular rate. 12-lead EKG A. fib RVR. Mediastinal chest tubes serosanguineous fluid 170 cc RESPIRATORY: On Ventimask 50% Clear to auscultation. Breath sounds equal bilaterally. GASTROINTESTINAL: Abdomen soft, non-tender, nondistended. No guarding. MUSCULOSKELETAL: Extremities without clubbing, cyanosis, or edema. No obvious deformities. Left lower extremity status post saphenous vein harvest Sai wrap, toes brisk capillary refill NEUROLOGICAL: GCS 15. RASS 0. No gross focal/sensory deficits. Follows commands in all 4 extremities. Her history patient is hard of hearing, has a history of a CVA with right arm weakness as baseline, and slight facial droop Urinary Catheter: Yes Date of Insertion: Aug 08, 2017 Date of Removal: Aug 09, 2017 Vascular Central Line Catheter: Yes Date of Insertion: Aug 08, 2017 Side: Right (vasoactive medication administration) Location: Internal, Jugular A/P Assessment and Plan Plan Neurologic: History of CVA 1 year ago-mild deficits reportedly left facial droop and right arm weakness Hard of Hearing Postoperative pain Discontinue Precedex No sedative type medications GCS 15 Pain medications per CTS protocol Respiratory: Acute Hypoxemic Respiratory Failure-resolved CAMI? Currently on Ventimask 50%, wean as tolerated to nasal cannula Maintain O2 saturation greater than 92% ABG and chest x-ray as clinically indicated Aggressive pulmonary toileting-schedule bronchodilators 08/09 chest x-ray left pleural effusion Begin incentive spirometry Cardiovascular: S/P off-pump CABG 4 POD #1 NYHA Classification 1 A. fib RVR- resolved Hyperlipidemia Multiple runs of V. tach-resolved Right carotid artery stenosis Maintain MAP greater than 65 Initial heart rate 140s-160s, MAP 50s. Wean Vasopressors as tolerated Phenylephrine infusion currently @40 mcgs, maintain dobutamine 5 mcg/kg, weaning/decrease epinephrine infusion. MAP ranging 70-80's Renal: BPH Maintain [place]on catheter, while intubated, Can D/C grullon -- Strict I/Os FEN/GI: Electrolyte disturbances Replete electrolytes per CVICU protocol Monitor BMP Obtain formal swallow study secondary to repeat intubation, then begin clear liquid diet and advance as tolerated Heme/ID: Monitor CBC Endocrine: Hyperglycemia Insulin infusion per CTS surgery / CVICU protocol -- SSI Prophylaxis: GI Prophylaxis Protonix DVT Prophylaxis -- SCDs Anticoagulant management per CT surgery Lines: Central line in situ right IJ, left radial A-line (day 2) Dispo: my billing statement This patient remains critically ill with one or more organ systems which are or may become a threat to life. I have spent in excess of 49 minutes discontinuously in the care and management of this patient. This time is exclusive of procedures, and includes, but is not limited to, evaluation of the patient, review of the medical record, discussions with family, consultants, nursing staff, or respiratory therapy, and documentation in the medical record. Physician Angela Osman MD Aug 09, 2017 12:39
[2017-08-09] MEDS: INSULIN ASPART SUPPLEMENTAL SCALE SQ SCH ×3 (14:21→21:36)
--- NOTE | 2017-08-09 15:21 | EKG ---
Date Performed: 08/08/2017 Time Performed: 16:22:08 PTAGE: 82 years EKG: Atrial fibrillation with rapid ventricular response. Leftward axis Inferior infarct - age u ndetermined Lateral T wave changes may be due to myocardial ischemia Low QRS voltages in precordial l remberto Abnormal ECG PREVIOUS TRACING : 08/04/2017 22.53 Compared to the previous tracing, now in Afib with RVR and non-specific ST/T wave changes DOCTOR: Carlos Sue Interpretating Date/Time 08/09/2017 15:20:24
[2017-08-09] MEDS: CLOPIDOGREL 75 MG TAB PO SCH (15:39)
[2017-08-09] MEDS: ASPIRIN 81 MG CHEW TAB PO SCH (15:39)
[2017-08-09] MEDS: AMIODARONE 200 MG TAB PO SCH ×2 (15:39→21:20)
[2017-08-09] MEDS: ACETAMINOPHEN/HYDROcodone 325 MG/5 MG TAB PO PRN (15:40)
[2017-08-09] MEDS ORDERED: WATER IV SCH ×2 (18:00)
[2017-08-09] MEDS ORDERED: DEXTROSE 5% IV SCH ×2 (18:00)
[2017-08-09] MEDS ORDERED: DOBUTAMINE IV SCH ×2 (18:00)
[2017-08-09] MEDS: DOBUTamine INJ 250 MG in DEXTROSE 5% IN WATER INJ 230 ML IV SCH ×2 (18:16)
[2017-08-09] MEDS: ATORVASTATIN 40 MG TAB PO SCH (21:19)
[2017-08-09] MEDS: TERAZOSIN HCL 1 MG CAP PO SCH (21:36)
[2017-08-10] VITALS (10 sets, daily range): BP systolic 95–136; BP diastolic 43–70; PULSE 77–94; RESP 15–22; TEMP 97.8–99.2; O2SAT 91–97
[2017-08-10] MEDS: INSULIN ASPART SUPPLEMENTAL SCALE SQ SCH ×6 (02:07→22:10)
[2017-08-10] MEDS: ACETAMINOPHEN/HYDROcodone 325 MG/5 MG TAB PO PRN ×2 (02:08→04:32)
[2017-08-10] MEDS: RESP: ALBUTEROL 2.5 MG/IPRATROPIUM 0.5 MG NEB (SCH) NEB ×4 (03:18→20:57)
[2017-08-10] MEDS: ACETAMINOPHEN 1000 MG/100 ML 100 ML IV SCH ×4 (04:00→22:10)
[2017-08-10 04:44] LABS: HEMATOCRIT 26.7 % (39.0-51.0); MEAN CELL VOLUME 87.3 FL (80.0-100.0); MEAN CORPUSCULAR HEMOGLOBIN 29.7 PG (27.0-34.0); PLATELET COUNT 168 TH/MM3 (150-450); RED BLOOD COUNT 3.06 MIL/MM3 (4.50-5.90); RED CELL DISTRIBUTION WIDTH 15.6 % (11.6-17.2); REVIEW FLAG FINAL; WHITE BLOOD COUNT 13.9 TH/MM3 (4.0-11.0)
[2017-08-10] MEDS: DOBUTamine INJ 250 MG in DEXTROSE 5% IN WATER INJ 230 ML IV SCH ×2 (05:43)
[2017-08-10] MEDS: EPINEPHrine 2 MG/D5W 250 ML IV PRN ×2 (05:44)
[2017-08-10] MEDS: ISOSORBIDE MONONITRATE 30 MG TAB PO SCH (06:20)
[2017-08-10] MEDS: PANTOPRAZOLE SOD 20 MG DELAYED RELEASE TAB PO SCH ×2 (07:00→16:00)
[2017-08-10] MEDS: AMIODARONE 200 MG TAB PO SCH ×2 (09:00→22:12)
[2017-08-10] MEDS: ASPIRIN 81 MG CHEW TAB PO SCH (09:00)
[2017-08-10] MEDS: METOPROLOL TARTRATE 25 MG TAB PO SCH ×2 (09:00→22:11)
[2017-08-10] MEDS: SODIUM CHLORIDE 0.9% FLUSH 10 ML FLUSH IV FLUSH SCH ×2 (09:00→22:12)
[2017-08-10] MEDS: CLOPIDOGREL 75 MG TAB PO SCH (09:00)
--- NOTE | 2017-08-10 09:43 | PD.CAR.PN ---
CVT Progress Note Subjective/Hospital Course: 82-year-old male , patient of Dr. Hope Golden at the [facility] on the blue team. Bar Chopra , apparently started having some burning in his chest on Friday , noticed it after he was eating something. On Friday he seemed to be doing okay and then Friday he went to the [facility] for hearing test and his burning sensation started again, they did an electrocardiogram which is slightly abnormal and he was transferred over to the [facility] emergency room and had a work up. His electrocardiogram showed some moderate ST depression aVL, lead I , his troponins were elevated the highest at 14.1. He was ruled in for a non- STEMI. He underwent cardiac catheterization today which showed a left main disease of 80% proximal LAD 50%. The mid and distal LAD 20%. The diagonal 70% . The circ was 10. The OM 20%. The RCA 95%. 2-D echo shoed Ef 40% ( grade 1 diastolic dysfunction) mild MR. mild TR. We were consulted to evaluate for coronary artery bypass grafting. PAST MEDICAL HISTORY: History of cerebrovascular accident 1 year ago with a minimal speech defect, very light left facial drooping, mild right weakness in his arm.( hx of Left CEA 2 years ago ) current carotid US shows 50-70% stenosis right ICA 120sec velocity Benign prostatic hypertrophy Hyperlipidemia Cervical spondylosis. Esophageal dysphasia Hearing loss. 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 Urgent Off-pump Coronary Artery Bypass Grafting x 4 with Left Internal Mammary Artery (JUDD) to the Left Anterior Descending (LAD), reverse saphenous vein graft to the Obtuse Marginal 1 (OM1), reverse saphenous vein graft to the Posterior Descending Artery (RPDA), reverse saphenous vein graft to the Diagonal 1 (D1) 2. Left Leg Endoscopic Vein [place] 3. Intraoperative Vein Mapping 08/09 Reintubated right after extubation yesterday. Awake and alert this morning. Wean to extubate Wean Epi and Dobutamine as tolerated Greatly appreciate Dr. Snyder's assistance Maintain CT to drainage 08/10 Remains on Dobutamine and Epi. Nick off. Weaning as tolerated Wean O2 as tolerated OOB to chair Maintain in ICU Objective: Vital Signs Date Time Temp Pulse Resp B/P (MAP) Pulse Ox O2 Delivery O2 Flow Rate FiO2 08/10/17 05:44 88 92/40 08/10/17 03:23 98.0 81 15 113/68 (83) 92 107/47 (67) 08/10/17 03:23 82 08/10/17 03:23 93 Venturi Mask 50 08/09/17 23:42 98.2 80 15 101/62 (75) 92 108/48 (68) 08/09/17 23:42 92 Nasal Cannula 6.00 08/09/17 23:42 81 08/09/17 21:03 90 Nasal Cannula 6.00 08/09/17 19:41 98.2 80 18 89/57 (68) 92 108/47 (67) 08/09/17 19:41 92 Nasal Cannula 6.00 08/09/17 19:00 88 08/09/17 18:18 97 127/57 08/09/17 18:16 97 127/61 08/09/17 18:16 77 121/57 08/09/17 16:00 88 08/09/17 16:00 98.0 90 16 120/52 (74) 95 08/09/17 16:00 94 Venturi Mask 40 08/09/17 14:25 12 08/09/17 14:24 12 08/09/17 11:00 88 08/09/17 11:00 97.8 88 16 119/51 (73) 97 08/09/17 11:00 97 Mechanical Ventilator 40 08/09/17 10:30 40 08/09/17 10:28 92 Venturi Mask 6 50 Labs: Laboratory Tests Test 08/10/17 04:30 White Blood Count 13.9 TH/MM3 (4.0-11.0) Red Blood Count 3.06 MIL/MM3 (4.50-5.90) Hemoglobin 9.1 GM/DL (13.0-17.0) Hematocrit 26.7 % (39.0-51.0) Mean Corpuscular Volume 87.3 FL (80.0-100.0) Mean Corpuscular Hemoglobin 29.7 PG (27.0-34.0) Mean Corpuscular Hemoglobin Concent 34.0 % (32.0-36.0) Red Cell Distribution Width 15.6 % (11.6-17.2) Platelet Count 168 TH/MM3 (150-450) Mean Platelet Volume 8.1 FL (7.0-11.0) Result Diagram: 08/10/17 0430 08/09/17 0500 (1) S/P CABG x 4 (2) Chronic kidney disease (3) Diastolic congestive heart failure, NYHA class 1 (4) History of CVA (cerebrovascular accident) (5) Coronary artery disease (6) Hyperlipemia (7) COPD (chronic obstructive pulmonary disease) (8) Carotid stenosis, right Mago Morris MD Aug 10, 2017 09:43
--- NOTE | 2017-08-10 10:04 | HHI.CCPN ---
Subjective Remarks/Hospital Course This is an 82-year-old gentleman with NYHA Class I, recently ruled in for NSTEMI. The patient underwent cardiac catheterization on 08/06 revealing 80% left main, 50% proximal LAD, 20% mid distal LAD, 70% diagonal, and 95% RCA. Today the patient underwent urgent off-pump CABG 4 vessels utilize the JUDD and reverse saphenous vein graft. Intraoperatively reported EF approximately 50 %. The patient was transferred to CVICU, on epinephrine 10 mcgs and dobutamine 2.5 mcgs. The patient was subsequently awakened, a RASS of -1 on Precedex infusion 0.1 mics per kilo per hour. SBT trials were initiated and reported as RSBI 26 FVC 900, positive cuff leak, however NIF was only -10. The patient was extubated, and immediately became hypoxemic, with inability to manually ventilate. Anesthesiology was notified stat ,the patient's O2 saturation decreased to 50%, the patient became bradycardic, approximately 32 mcgs of epinephrine was bolused, chest compressions initiated lasting approximately 20 seconds. The patient was reintubated by Dr. Jain, without any paralytics or sedatives, with immediate resumption of normal oxygenation. Discussion with Dr. Jain upon my arrival concern for CAMI, airway obstruction upon extubation (no oral airway), also possible bronchospasm relieved with epinephrine, as patient was still on Precedex infusion during extubation. Posterior reintubation, GCS 11 T -patient alert and responsive, following commands moving extremities 4. The patient was then placed back on my sedation a Precedex 0.1 mics per kilo per hour. Post intubation the patient's rhythm converted to A. fib RVR ranging from 140s to 160s, with short runs of V. tach, with a MAP in the 50's. Electrolytes were obtained previously the patient was noted to be hypokalemic with a potassium of 3.1 which was currently being repleted ( the patient had received 60 mEq), ionized calcium was noted to be 1.14, which was then being repleted. Phenylephrine infusion was initiated at 60mcgs, epinephrine was decreased dobutamine was maintained at 5 mcgs, with MAP responsive 70's-80's. Subjective: 08/09: No acute events overnight. The patient continued on vasopressors without escalation. Patient awake alert oriented, GCS 11T. CPAP trials for approximately 3.5 hours SBT perform, WNL. Patient extubated, O2 sat ranging 95 -97%. Weaning vasopressors as tolerated. 08/10: Remains on Ventimask. O2 sats borderline. Remains on epinephrine and dobutamine drips. Objective Vital Signs Date Time Temp Pulse Resp B/P (MAP) Pulse Ox O2 Delivery O2 Flow Rate FiO2 08/10/17 05:44 88 92/40 08/10/17 03:23 98.0 15 92 08/10/17 03:23 Venturi Mask 50 08/09/17 23:42 6.00 Intake and Output 08/10/17 08/10/17 08/11/17 08:00 16:00 00:00 Intake Total 938 ml Output Total 1075 ml Balance -137 ml Result Diagram: 08/10/17 0430 08/09/17 0500 Imaging Last Impressions Chest X-Ray 08/09/17 0500 Signed Impressions: Service Date/Time: Wednesday, August 09, 2017 03:13 - CONCLUSION: 1. Hazy opacity remains in the left lung greatest at the lung base. There is evidence of left effusion. 2. Status post median sternotomy with no pneumothorax. Kyle Velasco MD Lower Extremity Ultrasound 08/05/17 0000 Signed Impressions: Service Date/Time: Saturday, August 05, 2017 16:25 - CONCLUSION: Bilateral venous mapping as above. Matteo Vega MD Carotid Artery Ultrasound 08/05/17 0000 Signed Impressions: Service Date/Time: Saturday, August 05, 2017 15:56 - CONCLUSION: 1. Abnormal hemodynamic profile in the right internal carotid artery suggesting 50-70%% stenosis. 2. Normal hemodynamic profile on the left side. Matteo Vega MD Objective Remarks GENERAL: Obese male sitting up in chair, on Ventimask. Not in any acute distress SKIN: Warm and dry. HEAD: Atraumatic. Normocephalic. EYES: Pupils equal and round. No scleral icterus. No injection or drainage. ENT: No nasal bleeding or discharge. Mucous membranes pink and moist. NECK: Trachea midline. No JVD. Right IJ central line CARDIOVASCULAR: Irregular rhythm, irregular rate. 12-lead EKG A. fib RVR. Mediastinal chest tubes serosanguineous fluid RESPIRATORY: On Ventimask 50% Clear to auscultation. Breath sounds equal bilaterally. GASTROINTESTINAL: Abdomen soft, non-tender, nondistended. No guarding. MUSCULOSKELETAL: Extremities without clubbing, cyanosis, or edema. No obvious deformities. Left lower extremity status post saphenous vein harvest Sai wrap, toes brisk capillary refill NEUROLOGICAL: GCS 15. RASS 0. No gross focal/sensory deficits. Follows commands in all 4 extremities. Her history patient is hard of hearing, has a history of a CVA with right arm weakness as baseline, and slight facial droop Date of Insertion: Aug 08, 2017 Date of Removal: Aug 09, 2017 Date of Insertion: Aug 08, 2017 Side: Right (vasoactive medication administration) Location: Internal, Jugular A/P Assessment and Plan Assessment This is a 82-year-old male with NYHA 1, NSTEMI, with multivessel coronary artery disease, S/P off-pump CABG x 4 vessels. Patient is status post extubation with respiratory arrest, with reintubation and subsequent hemodynamic instability. Patient is critical. Plan Neurologic: History of CVA 1 year ago-mild deficits reportedly left facial droop and right arm weakness Hard of Hearing Follow neuro status, pain medications as needed per CT surgery Respiratory: Acute Hypoxemic Respiratory Failure CAMI? Reintubation 8.0 ETT 24 cm at the lip Maintain O2 saturation greater than 92% ABG and chest x-ray as clinically indicated Extubated following C Pap trial on 08/09, currently on Ventimask. To be initiated on high flow O2. Cardiovascular: S/P off-pump CABG 4 NYHA Classification 1 A. fib RVR Hyperlipidemia Multiple runs of V. tach Right carotid artery stenosis Maintain MAP greater than 65 Initial heart rate 140s-160s, MAP 50s. On epinephrine and dobutamine drips. CT surgery following. Renal: BPH Maintain Eisenberg catheter, while intubated -- Strict I/Os FEN/GI: Electrolyte disturbances Replete electrolytes per CVICU protocol Hypokalemia Hypocalcemia Monitor BMP Heme/ID: Monitor CBC Endocrine: Hyperglycemia Insulin infusion per CTS surgery / CVICU protocol -- SSI Prophylaxis: GI Prophylaxis Protonix DVT Prophylaxis -- SCDs Anticoagulant management per CT surgery Lines: Central line in situ right IJ, left radial A-line Dispo: This patient remains critically ill with one or more organ systems which are or may become a threat to life. I have spent in excess of 30 minutes discontinuously in the care and management of this patient. This time is exclusive of procedures, and includes, but is not limited to, evaluation of the patient, review of the medical record, discussions with family, consultants, nursing staff, or respiratory therapy, and documentation in the medical record. Yinka Felix MD Aug 10, 2017 10:04
--- NOTE | 2017-08-10 13:17 | PD.CARD.PN ---
Subjective Subjective Remarks No events overnight Up in bed, doing well, no complaints On Epi and Dobutamine Objective Medications Current Medications Medications (Trade) Dose Ordered Sig/Vince Route Start Time Stop Time Status Last Admin (Lopressor) 12.5 mg BID PO 08/05/17 09:00 08/10/17 09:00 (Hytrin) 2 mg HS PO 08/05/17 21:00 08/09/17 21:36 (Protonix) 20 mg BIDAC PO 08/05/17 07:00 08/10/17 07:00 (Lipitor) 40 mg HS PO 08/05/17 10:30 08/09/17 21:19 (Imdur) 30 mg DAILY@07 PO 08/06/17 07:00 08/06/17 07:13 Heparin Sodium/ Dextrose 250 ml @ 10 mls/hr TITRATE PRN IV 08/05/17 19:30 08/07/17 07:11 Papaverine HCl 60 mg/Nitroglycerin 100 mcg/Diltiazem HCl 100 mg/Sodium Chloride 100 ml @ 0 mls/hr BUSINESS ARCHITECT IRRIGATION 08/06/17 12:15 08/13/17 12:14 08/08/17 10:36 Cefazolin Sodium 500 mg/Sodium Chloride 505 ml @ 0 mls/hr BUSINESS ARCHITECT IRRIGATION 08/06/17 12:15 08/13/17 12:14 08/08/17 10:39 Cefazolin Sodium/ Dextrose 50 ml @ 150 mls/hr BUSINESS ARCHITECT IV 08/06/17 12:15 08/13/17 12:14 (Lopressor) 12.5 mg BUSINESS ARCHITECT PO 08/06/17 12:15 08/13/17 12:14 08/08/17 05:14 (Hibiclens 4% Top Soln) 1 applic BUSINESS ARCHITECT TOPICAL 08/06/17 12:15 08/13/17 12:14 Lactated Ringer's 1,000 ml @ 30 mls/hr Q24H PRN IV 08/08/17 04:00 08/11/17 03:59 08/08/17 12:30 Sodium Chloride 500 ml @ 30 mls/hr [id number] PRN IV 08/08/17 04:00 08/11/17 03:59 (Betadine 5% Antisepsis Kit) 1 applic BUSINESS ARCHITECT PRN EACH NARE 08/08/17 04:00 08/11/17 03:59 (Chlorhexidine 2% Cloth) 3 pack BUSINESS ARCHITECT PRN TOPICAL 08/08/17 04:00 08/11/17 03:59 (NovoLIN R INJ) See Protocol Table ... BUSINESS ARCHITECT PRN SQ 08/08/17 04:00 08/11/17 03:59 (NS Flush) 2 ml BID IV FLUSH 08/08/17 21:00 08/10/17 09:00 (NS Flush) 2 ml UNSCH PRN IV FLUSH 08/08/17 12:30 Nitroglycerin/ Dextrose 250 ml @ 1.5 mls/hr TITRATE PRN IV 08/08/17 12:45 Dobutamine HCl/ Dextrose 250 ml @ 12.525 mls/ hr [id number] IV 08/08/17 12:30 Future Hold 08/09/17 08:24 Dopamine HCl/ Dextrose 500 ml @ 9.394 mls/ hr TITRATE PRN IV 08/08/17 13:00 Phenylephrine HCl 40 mg/Dextrose 500 ml @ 30 mls/hr TITRATE PRN IV 08/08/17 12:45 08/09/17 06:00 Clevidipine 50 ml @ 2 mls/hr TITRATE PRN IV 08/08/17 13:00 Albumin Human 250 ml @ 250 mls/hr UNSCH PRN IV 08/08/17 13:00 08/08/17 14:16 Lactated Ringer's 500 ml @ 500 mls/hr Q1H PRN IV 08/08/17 12:45 (Aspirin Chew) 81 mg DAILY PO 08/09/17 09:00 08/10/17 09:00 (Plavix) 75 mg DAILY PO 08/09/17 09:00 08/10/17 09:00 (Cordarone) 200 mg Q12HR PO 08/08/17 21:00 08/10/17 09:00 (Tylenol) 650 mg Q4H PRN PO 08/08/17 13:00 (Tylenol Supp) 650 mg Q4H PRN RECTAL 08/08/17 13:00 (Morphine Inj) 1 mg Q10M PRN IV PUSH 08/08/17 13:00 (Demerol Inj) 12.5 mg Q4H PRN IV PUSH 08/08/17 13:00 ([place] 5-325 Mg) 1 tab Q3H PRN PO 08/08/17 13:00 08/10/17 04:32 (fentaNYL INJ) 25 mcg Q1H PRN IV PUSH 08/08/17 13:00 08/10/17 05:29 (Zofran Inj) 4 mg Q6H PRN IV PUSH 08/08/17 13:15 08/08/17 23:11 (Apresoline Inj) 10 mg Q4H PRN IV PUSH 08/08/17 13:00 (Lopressor Inj) 2.5 mg Q1H PRN IV PUSH 08/08/17 13:00 Potassium Chloride 100 ml @ 50 mls/hr UNSCH PRN IV 08/08/17 12:00 08/09/17 12:40 Potassium Chloride 100 ml @ 50 mls/hr UNSCH PRN IV 08/08/17 12:00 08/08/17 16:10 (KCl) 20 meq UNSCH PRN PO 08/08/17 12:00 (KCl) 40 meq UNSCH PRN PO 08/08/17 12:00 Magnesium Sulfate 2 gm/Sodium Chloride 104 ml @ 100 mls/hr UNSCH PRN IV 08/08/17 13:00 (Calcium Chloride Inj) 0.5 gm UNSCH PRN IV PUSH 08/08/17 13:00 Insulin Human Regular 100 units/ Sodium Chloride 100 ml @ 3 mls/hr TITRATE PRN IV 08/08/17 14:00 08/09/17 01:49 (D50w (Vial) Inj) 50 ml UNSCH PRN IV PUSH 08/08/17 13:00 (Sodium Bicarbonate 8.4% Inj) 50 meq UNSCH PRN IV PUSH 08/08/17 12:30 08/08/17 16:35 (Sodium Bicarbonate 8.4% Inj) 100 meq UNSCH PRN IV PUSH 08/08/17 12:30 (Duoneb Neb) 1 ampule Q6HR NEB NEB 08/08/17 16:00 08/10/17 10:40 (Duoneb Neb) 1 ampule Q2HR NEB PRN NEB 08/08/17 12:00 (Racepinephrine 2.25% Neb) 0.5 ml UNSCH X1 PRN NEB 08/08/17 13:00 08/10/17 23:59 Epinephrine HCl 2 mg/Dextrose 250 ml @ 75 mls/hr TITRATE PRN IV 08/08/17 12:30 08/10/17 05:44 Dexmedetomidine HCl 200 mcg/ Sodium Chloride 52 ml @ 8.68 mls/hr TITRATE PRN IV 08/08/17 14:15 08/08/17 21:48 Phenylephrine HCl 40 mg/Dextrose 500 ml @ 30 mls/hr TITRATE PRN IV 08/08/17 16:30 (Brethine Inj) 1 mg UNSCH PRN SQ 08/08/17 16:30 Acetaminophen 100 ml @ 400 mls/hr Q6H IV 08/09/17 10:00 08/10/17 10:00 (NovoLOG SUPPLEMENTAL SCALE) 1 02,06,10,14,18,22 SQ 08/09/17 14:00 08/10/17 02:07 (D50w (Vial) Inj) 50 ml UNSCH PRN IV PUSH 08/09/17 11:30 (Glucagon Inj) 1 mg UNSCH PRN OTHER 08/09/17 11:30 Dobutamine HCl 250 mg/Dextrose 250 ml @ 12.525 mls/ hr [id number] IV 08/09/17 18:15 08/10/17 05:43 Vital Signs / I&O Vital Signs Date Time Temp Pulse Resp B/P (MAP) Pulse Ox O2 Delivery O2 Flow Rate FiO2 08/10/17 11:00 83 08/10/17 11:00 98.1 83 17 115/70 (85) 95 103/50 (67) 08/10/17 11:00 95 Nasal Cannula 30.00 08/10/17 10:46 16 08/10/17 07:00 93 Venturi Mask 50 08/10/17 07:00 94 08/10/17 07:00 98.1 94 17 107/66 (80) 93 123/57 (79) 08/10/17 05:44 88 92/40 08/10/17 03:23 98.0 81 15 113/68 (83) 92 107/47 (67) 08/10/17 03:23 82 08/10/17 03:23 93 Venturi Mask 50 08/09/17 23:42 98.2 80 15 101/62 (75) 92 108/48 (68) 08/09/17 23:42 92 Nasal Cannula 6.00 08/09/17 23:42 81 11/25/17 21:03 90 Nasal Cannula 6.00 08/09/17 19:41 98.2 80 18 89/57 (68) 92 108/47 (67) 08/09/17 19:41 92 Nasal Cannula 6.00 08/09/17 19:00 88 08/09/17 18:18 97 127/57 08/09/17 18:16 97 127/61 08/09/17 18:16 77 121/57 08/09/17 16:00 88 08/09/17 16:00 98.0 90 16 120/52 (74) 95 08/09/17 16:00 94 Venturi Mask 40 08/09/17 14:24 12 I/O 08/09/17 08/09/17 08/09/17 08/10/17 08/10/17 08/10/17 07:00 15:00 23:00 07:00 15:00 23:00 Intake Total 2285 ml 368 ml 850 ml 938 ml Output Total 1535 ml 550 ml 1075 ml Balance 750 ml 368 ml 300 ml -137 ml Intake Oral 0 ml 300 ml IV Total 2285 ml 368 ml 850 ml 638 ml Output Urine Total 1375 ml 400 ml 975 ml Chest Tube Drainage Total 160 ml 150 ml 100 ml # Bowel Movements 0 0 Physical Exam GENERAL: NAD, AAOx3 SKIN: Warm and dry. HEAD: Atraumatic. Normocephalic. EYES: Pupils equal and round. No scleral icterus. No injection or drainage. ENT: No nasal bleeding or discharge. Mucous membranes pink and moist. NECK: Trachea midline. No JVD. CARDIOVASCULAR: Regular rate and rhythm. RESPIRATORY: No accessory muscle use. Clear to auscultation. Breath sounds equal bilaterally. GASTROINTESTINAL: Abdomen soft, non-tender, nondistended. Hepatic and splenic margins not palpable. MUSCULOSKELETAL: Extremities without clubbing, cyanosis, or edema. No obvious deformities. NEUROLOGICAL: Awake and alert. Moving all 4 extremities Laboratory Laboratory Tests Test 08/10/17 04:30 White Blood Count 13.9 TH/MM3 Red Blood Count 3.06 MIL/MM3 Hemoglobin 9.1 GM/DL Hematocrit 26.7 % Mean Corpuscular Volume 87.3 FL Mean Corpuscular Hemoglobin 29.7 PG Mean Corpuscular Hemoglobin Concent 34.0 % Red Cell Distribution Width 15.6 % Platelet Count 168 TH/MM3 Mean Platelet Volume 8.1 FL Assessment and Plan Problem List: (1) S/P CABG x 4 ICD Codes: Z95.1 - Presence of aortocoronary bypass graft (2) Chronic kidney disease ICD Codes: N18.9 - Chronic kidney disease, unspecified (3) Diastolic congestive heart failure, NYHA class 1 ICD Codes: I50.30 - Unspecified diastolic (congestive) heart failure (4) History of CVA (cerebrovascular accident) ICD Codes: Z86.73 - Personal history of transient ischemic attack (TIA), and cerebral infarction without residual deficits (5) Coronary artery disease ICD Codes: I25.10 - Atherosclerotic heart disease of [place] coronary artery without angina pectoris (6) Hyperlipemia ICD Codes: E78.5 - Hyperlipidemia, unspecified (7) COPD (chronic obstructive pulmonary disease) ICD Codes: J44.9 - Chronic obstructive pulmonary disease, unspecified (8) Carotid stenosis, right ICD Codes: I65.21 - Occlusion and stenosis of right carotid artery Assessment and Plan 1) MVCAD s/p CABGx4 POD#2 JUDD to LAD SVG to OM1 SVG to PDA SVG to Diag 2) Con't Amio/ASA/Plavix/Lipitor/Lopressor 3) Short episode of Afib with RVR after need for reintubation and after given Epi Will continue to follow on telemetry Will discuss further with patient and CV surgery team, most likely not going to anticoagulate unless further episodes 4) Wean pressors as possible Carlos Sue DO Aug 10, 2017 13:17
[2017-08-10] MEDS: ATORVASTATIN 40 MG TAB PO SCH (22:11)
[2017-08-10] MEDS: TERAZOSIN HCL 1 MG CAP PO SCH (22:11)
[2017-08-11] VITALS (11 sets, daily range): BP systolic 109–144; BP diastolic 45–67; PULSE 70–90; RESP 16–22; TEMP 98–99.6; O2SAT 91–97
[2017-08-11] MEDS: INSULIN ASPART SUPPLEMENTAL SCALE SQ SCH ×6 (02:00→20:06)
[2017-08-11] MEDS: RESP: ALBUTEROL 2.5 MG/IPRATROPIUM 0.5 MG NEB (SCH) NEB ×4 (04:22→20:41)
[2017-08-11] MEDS: DOBUTamine INJ 250 MG in DEXTROSE 5% IN WATER INJ 230 ML IV SCH ×6 (04:26→07:28)
[2017-08-11] MEDS: ACETAMINOPHEN 1000 MG/100 ML 100 ML IV SCH ×2 (04:34→10:00)
[2017-08-11] MEDS: PANTOPRAZOLE SOD 20 MG DELAYED RELEASE TAB PO SCH ×2 (06:25→16:23)
[2017-08-11] MEDS: ISOSORBIDE MONONITRATE 30 MG TAB PO SCH (07:00)
[2017-08-11] MEDS: METOPROLOL TARTRATE 25 MG TAB PO SCH ×2 (09:00→20:00)
[2017-08-11] MEDS: SODIUM CHLORIDE 0.9% FLUSH 10 ML FLUSH IV FLUSH SCH ×3 (09:00→21:00)
[2017-08-11] MEDS: ASPIRIN 81 MG CHEW TAB PO SCH (09:25)
[2017-08-11] MEDS: CLOPIDOGREL 75 MG TAB PO SCH (09:25)
[2017-08-11] MEDS: AMIODARONE 200 MG TAB PO SCH ×2 (09:25→20:00)
[2017-08-11 12:02] LABS: AUTOMATED NEUTROPHIL # 6.4 TH/MM3 (1.8-7.7); BASOPHIL % 0.1 % (0.0-2.0); EOSINOPHIL % 0.4 % (0.0-4.0); HEMO FLAGS DIFF FINAL; LYMPH % 17.3 % (9.0-44.0); LYMPHOCYTE # 1.5 TH/MM3 (1.0-4.8); MEAN CELL VOLUME 87.2 FL (80.0-100.0); MEAN CORPUSCULAR HEMOGLOBIN 30.1 PG (27.0-34.0); MEAN CORPUSCULAR HGB CONC 34.5 % (32.0-36.0); MONO % 6.8 % (0.0-8.0); NEUT % 75.4 % (16.0-70.0); PLATELET COUNT 173 TH/MM3 (150-450); RED BLOOD COUNT 2.86 MIL/MM3 (4.50-5.90); RED CELL DISTRIBUTION WIDTH 15.1 % (11.6-17.2); WHITE BLOOD COUNT 8.5 TH/MM3 (4.0-11.0)
[2017-08-11 12:19] LABS: BICARBONATE 27.2 MEQ/L (21.0-32.0)
--- NOTE | 2017-08-11 15:53 | PD.CARD.PN ---
Subjective Subjective Remarks No events overnight Up in bed, doing well, no complaints... currently on high flow O2 Off Epi, on 5 of Dobutamine Objective Medications Current Medications Medications (Trade) Dose Ordered Sig/Vince Route Start Time Stop Time Status Last Admin (Lopressor) 12.5 mg BID PO 08/05/17 09:00 08/10/17 22:11 (Hytrin) 2 mg HS PO 08/05/17 21:00 08/10/17 22:11 (Protonix) 20 mg BIDAC PO 08/05/17 07:00 08/11/17 06:25 (Lipitor) 40 mg HS PO 08/05/17 10:30 08/10/17 22:11 (Imdur) 30 mg DAILY@07 PO 08/06/17 07:00 08/06/17 07:13 Heparin Sodium/ Dextrose 250 ml @ 10 mls/hr TITRATE PRN IV 08/05/17 19:30 08/07/17 07:11 Papaverine HCl 60 mg/Nitroglycerin 100 mcg/Diltiazem HCl 100 mg/Sodium Chloride 100 ml @ 0 mls/hr COMPUTER INSTRUCTOR IRRIGATION 08/06/17 12:15 08/13/17 12:14 08/08/17 10:36 Cefazolin Sodium 500 mg/Sodium Chloride 505 ml @ 0 mls/hr COMPUTER INSTRUCTOR IRRIGATION 08/06/17 12:15 08/13/17 12:14 08/08/17 10:39 Cefazolin Sodium/ Dextrose 50 ml @ 150 mls/hr COMPUTER INSTRUCTOR IV 08/06/17 12:15 08/13/17 12:14 (Lopressor) 12.5 mg COMPUTER INSTRUCTOR PO 08/06/17 12:15 08/13/17 12:14 08/08/17 05:14 (Hibiclens 4% Top Soln) 1 applic COMPUTER INSTRUCTOR TOPICAL 08/06/17 12:15 08/13/17 12:14 (NS Flush) 2 ml BID IV FLUSH 08/08/17 21:00 08/11/17 09:00 (NS Flush) 2 ml UNSCH PRN IV FLUSH 08/08/17 12:30 Nitroglycerin/ Dextrose 250 ml @ 1.5 mls/hr TITRATE PRN IV 08/08/17 12:45 Dobutamine HCl/ Dextrose 250 ml @ 12.525 mls/ hr [id number] IV 08/08/17 12:30 Future Hold 08/09/17 08:24 Dopamine HCl/ Dextrose 500 ml @ 9.394 mls/ hr TITRATE PRN IV 08/08/17 13:00 Phenylephrine HCl 40 mg/Dextrose 500 ml @ 30 mls/hr TITRATE PRN IV 08/08/17 12:45 08/09/17 06:00 Clevidipine 50 ml @ 2 mls/hr TITRATE PRN IV 08/08/17 13:00 Albumin Human 250 ml @ 250 mls/hr UNSCH PRN IV 08/08/17 13:00 08/08/17 14:16 Lactated Ringer's 500 ml @ 500 mls/hr Q1H PRN IV 08/08/17 12:45 (Aspirin Chew) 81 mg DAILY PO 08/09/17 09:00 08/11/17 09:25 (Plavix) 75 mg DAILY PO 08/09/17 09:00 08/11/17 09:25 (Cordarone) 200 mg Q12HR PO 08/08/17 21:00 08/11/17 09:25 (Tylenol) 650 mg Q4H PRN PO 08/08/17 13:00 (Tylenol Supp) 650 mg Q4H PRN RECTAL 08/08/17 13:00 (Morphine Inj) 1 mg Q10M PRN IV PUSH 08/08/17 13:00 (Demerol Inj) 12.5 mg Q4H PRN IV PUSH 08/08/17 13:00 ([place] 5-325 Mg) 1 tab Q3H PRN PO 08/08/17 13:00 08/10/17 04:32 (fentaNYL INJ) 25 mcg Q1H PRN IV PUSH 08/08/17 13:00 08/10/17 05:29 (Zofran Inj) 4 mg Q6H PRN IV PUSH 08/08/17 13:15 08/08/17 23:11 (Apresoline Inj) 10 mg Q4H PRN IV PUSH 08/08/17 13:00 (Lopressor Inj) 2.5 mg Q1H PRN IV PUSH 08/08/17 13:00 Potassium Chloride 100 ml @ 50 mls/hr UNSCH PRN IV 08/08/17 12:00 08/09/17 12:40 Potassium Chloride 100 ml @ 50 mls/hr UNSCH PRN IV 08/08/17 12:00 08/08/17 16:10 (KCl) 20 meq UNSCH PRN PO 08/08/17 12:00 (KCl) 40 meq UNSCH PRN PO 08/08/17 12:00 Magnesium Sulfate 2 gm/Sodium Chloride 104 ml @ 100 mls/hr UNSCH PRN IV 08/08/17 13:00 (Calcium Chloride Inj) 0.5 gm UNSCH PRN IV PUSH 08/08/17 13:00 Insulin Human Regular 100 units/ Sodium Chloride 100 ml @ 3 mls/hr TITRATE PRN IV 08/08/17 14:00 08/09/17 01:49 (D50w (Vial) Inj) 50 ml UNSCH PRN IV PUSH 08/08/17 13:00 (Sodium Bicarbonate 8.4% Inj) 50 meq UNSCH PRN IV PUSH 08/08/17 12:30 08/08/17 16:35 (Sodium Bicarbonate 8.4% Inj) 100 meq UNSCH PRN IV PUSH 08/08/17 12:30 (Duoneb Neb) 1 ampule Q6HR NEB NEB 08/08/17 16:00 08/11/17 09:19 (Duoneb Neb) 1 ampule Q2HR NEB PRN NEB 08/08/17 12:00 Epinephrine HCl 2 mg/Dextrose 250 ml @ 75 mls/hr TITRATE PRN IV 08/08/17 12:30 08/10/17 05:44 Dexmedetomidine HCl 200 mcg/ Sodium Chloride 52 ml @ 8.68 mls/hr TITRATE PRN IV 08/08/17 14:15 08/08/17 21:48 Phenylephrine HCl 40 mg/Dextrose 500 ml @ 30 mls/hr TITRATE PRN IV 08/08/17 16:30 (Brethine Inj) 1 mg UNSCH PRN SQ 08/08/17 16:30 Acetaminophen 100 ml @ 400 mls/hr Q6H IV 08/09/17 10:00 08/11/17 04:34 (NovoLOG SUPPLEMENTAL SCALE) 1 02,06,10,14,18,22 SQ 08/09/17 14:00 08/10/17 22:10 (D50w (Vial) Inj) 50 ml UNSCH PRN IV PUSH 08/09/17 11:30 (Glucagon Inj) 1 mg UNSCH PRN OTHER 08/09/17 11:30 Dobutamine HCl 250 mg/Dextrose 250 ml @ 12.525 mls/ hr [id number] IV 08/09/17 18:15 08/11/17 07:28 Vital Signs / I&O Vital Signs Date Time Temp Pulse Resp B/P (MAP) Pulse Ox O2 Delivery O2 Flow Rate FiO2 08/11/17 14:41 94 High Flow Nasal Cannula 30.00 46 08/11/17 11:11 98.6 79 22 114/67 (83) 93 137/55 (82) 08/11/17 11:11 96 Nasal Cannula 46 08/11/17 11:10 72 08/11/17 09:19 92 High Flow Nasal Cannula 30.00 46 08/11/17 07:38 98.0 72 22 109/62 (78) 95 144/56 (85) 08/11/17 07:37 72 08/11/17 07:35 96 Nasal Cannula 46 08/11/17 03:57 70 16 112/56 (74) 91 142/54 (83) 08/11/17 03:57 90 08/11/17 03:57 96 Nasal Cannula 30.00 43 08/11/17 02:49 14 08/11/17 00:30 91 Nasal Cannula 30.00 46 08/10/17 23:00 99.0 80 22 95/63 (74) 91 119/49 (72) 08/10/17 23:00 90 08/10/17 23:00 91 Nasal Cannula 30.00 43 08/10/17 20:57 92 High Flow Nasal Cannula 30.00 43 08/10/17 19:30 80 08/10/17 19:30 99.2 80 22 112/43 (66) 91 08/10/17 19:30 91 Nasal Cannula 30.00 43 I/O 08/10/17 08/10/17 08/10/17 08/11/17 08/11/17 08/11/17 07:00 15:00 23:00 07:00 15:00 23:00 Intake Total 938 ml 100 ml 380 ml 821 ml Output Total 1075 ml 1375 ml 1555 ml Balance -137 ml 100 ml -995 ml -734 ml Intake Oral 300 ml 200 ml 240 ml IV Total 638 ml 100 ml 180 ml 581 ml Output Urine Total 975 ml 1175 ml 1555 ml Chest Tube Drainage Total 100 ml 200 ml 0 ml # Bowel Movements 0 0 0 Physical Exam GENERAL: NAD, AAOx3 SKIN: Warm and dry. HEAD: Atraumatic. Normocephalic. EYES: Pupils equal and round. No scleral icterus. No injection or drainage. ENT: No nasal bleeding or discharge. Mucous membranes pink and moist. NECK: Trachea midline. No JVD. CARDIOVASCULAR: Regular rate and rhythm. RESPIRATORY: No accessory muscle use. Clear to auscultation. Breath sounds equal bilaterally. GASTROINTESTINAL: Abdomen soft, non-tender, nondistended. Hepatic and splenic margins not palpable. MUSCULOSKELETAL: Extremities without clubbing, cyanosis, or edema. No obvious deformities. NEUROLOGICAL: Awake and alert. Moving all 4 extremities Laboratory Laboratory Tests Test 08/11/17 11:30 White Blood Count 8.5 TH/MM3 Red Blood Count 2.86 MIL/MM3 Hemoglobin 8.6 GM/DL Hematocrit 25.0 % Mean Corpuscular Volume 87.2 FL Mean Corpuscular Hemoglobin 30.1 PG Mean Corpuscular Hemoglobin Concent 34.5 % Red Cell Distribution Width 15.1 % Platelet Count 173 TH/MM3 Mean Platelet Volume 8.4 FL Neutrophils (%) (Auto) 75.4 % Lymphocytes (%) (Auto) 17.3 % Monocytes (%) (Auto) 6.8 % Eosinophils (%) (Auto) 0.4 % Basophils (%) (Auto) 0.1 % Neutrophils # (Auto) 6.4 TH/MM3 Lymphocytes # (Auto) 1.5 TH/MM3 Monocytes # (Auto) 0.6 TH/MM3 Eosinophils # (Auto) 0.0 TH/MM3 Basophils # (Auto) 0.0 TH/MM3 CBC Comment DIFF FINAL Differential Comment Blood Urea Nitrogen 19 MG/DL Creatinine 1.11 MG/DL Random Glucose 110 MG/DL Calcium Level 8.2 MG/DL Sodium Level 137 MEQ/L Potassium Level 4.0 MEQ/L Chloride Level 103 MEQ/L Carbon Dioxide Level 27.2 MEQ/L Anion Gap 7 MEQ/L Estimat Glomerular Filtration Rate 63 ML/MIN Assessment and Plan Problem List: (1) S/P CABG x 4 ICD Codes: Z95.1 - Presence of aortocoronary bypass graft (2) Chronic kidney disease ICD Codes: N18.9 - Chronic kidney disease, unspecified (3) Diastolic congestive heart failure, NYHA class 1 ICD Codes: I50.30 - Unspecified diastolic (congestive) heart failure (4) History of CVA (cerebrovascular accident) ICD Codes: Z86.73 - Personal history of transient ischemic attack (TIA), and cerebral infarction without residual deficits (5) Coronary artery disease ICD Codes: I25.10 - Atherosclerotic heart disease of [place] coronary artery without angina pectoris (6) Hyperlipemia ICD Codes: E78.5 - Hyperlipidemia, unspecified (7) COPD (chronic obstructive pulmonary disease) ICD Codes: J44.9 - Chronic obstructive pulmonary disease, unspecified (8) Carotid stenosis, right ICD Codes: I65.21 - Occlusion and stenosis of right carotid artery Assessment and Plan 1) MVCAD s/p CABGx4 POD#3 JUDD to LAD SVG to OM1 SVG to PDA SVG to Diag 2) Con't Amio/ASA/Plavix/Lipitor/Lopressor 3) Short episode of Afib with RVR after need for reintubation and after given Epi Will continue to follow on telemetry Will discuss further with patient and CV surgery team, most likely not going to anticoagulate unless further episodes 4) Wean off Dobutamine as possible 5) Up out of bed to help aeration as possible Carlos Sue DO Aug 11, 2017 15:52
--- NOTE | 2017-08-11 16:12 | PD.CAR.PN ---
CVT Progress Note Subjective/Hospital Course: 82-year-old male , patient of Dr. Hope Golden at the [facility] on the blue team. Bar Chopra , apparently started having some burning in his chest on Friday , noticed it after he was eating something. On Friday he seemed to be doing okay and then Friday he went to the [facility] for hearing test and his burning sensation started again, they did an electrocardiogram which is slightly abnormal and he was transferred over to the [facility] emergency room and had a work up. His electrocardiogram showed some moderate ST depression aVL, lead I , his troponins were elevated the highest at 14.1. He was ruled in for a non- STEMI. He underwent cardiac catheterization today which showed a left main disease of 80% proximal LAD 50%. The mid and distal LAD 20%. The diagonal 70% . The circ was 10. The OM 20%. The RCA 95%. 2-D echo shoed Ef 40% ( grade 1 diastolic dysfunction) mild MR. mild TR. We were consulted to evaluate for coronary artery bypass grafting. PAST MEDICAL HISTORY: History of cerebrovascular accident 1 year ago with a minimal speech defect, very light left facial drooping, mild right weakness in his arm.( hx of Left CEA 2 years ago ) current carotid US shows 50-70% stenosis right ICA 120sec velocity Benign prostatic hypertrophy Hyperlipidemia Cervical spondylosis. Esophageal dysphasia Hearing loss. 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 Urgent Off-pump Coronary Artery Bypass Grafting x 4 with Left Internal Mammary Artery (JUDD) to the Left Anterior Descending (LAD), reverse saphenous vein graft to the Obtuse Marginal 1 (OM1), reverse saphenous vein graft to the Posterior Descending Artery (RPDA), reverse saphenous vein graft to the Diagonal 1 (D1) 2. Left Leg Endoscopic Vein [place] 3. Intraoperative Vein Mapping 08/09 Reintubated right after extubation yesterday. Awake and alert this morning. Wean to extubate Wean Epi and Dobutamine as tolerated Greatly appreciate Dr. Snyder's assistance Maintain CT to drainage 08/10 Remains on Dobutamine and Epi. Nick off. Weaning as tolerated Wean O2 as tolerated OOB to chair Maintain in ICU 08/11 weaning off dobutamine, BP stable, chest tubes dc without difficulty on high flow 02 at 48% OOB, keep in ICU today Objective: GENERAL: SKIN: Warm and dry. prevena dressing to chest, left leg incision intact and well approximated HEAD: Normocephalic. EYES: No scleral icterus. No injection or drainage. NECK: Supple, trachea midline. No JVD or lymphadenopathy. CARDIOVASCULAR: Regular rate and rhythm without murmurs, gallops, or rubs. RESPIRATORY: Breath sounds equal bilaterally. No accessory muscle use. diminished in bases GASTROINTESTINAL: Abdomen soft, non-tender, nondistended. MUSCULOSKELETAL: No cyanosis, or edema. BACK: Nontender without obvious deformity. No CVA tenderness. Vital Signs Date Time Temp Pulse Resp B/P (MAP) Pulse Ox O2 Delivery O2 Flow Rate FiO2 08/11/17 15:00 95 Nasal Cannula 48 08/11/17 15:00 99.2 85 20 135/65 (88) 95 08/11/17 15:00 85 08/11/17 14:41 94 High Flow Nasal Cannula 30.00 46 08/11/17 11:11 98.6 79 22 114/67 (83) 93 137/55 (82) 08/11/17 11:11 96 Nasal Cannula 46 08/11/17 11:10 72 08/11/17 09:19 92 High Flow Nasal Cannula 30.00 46 08/11/17 07:38 98.0 72 22 109/62 (78) 95 144/56 (85) 08/11/17 07:37 72 08/11/17 07:35 96 Nasal Cannula 46 08/11/17 03:57 70 16 112/56 (74) 91 142/54 (83) 08/11/17 03:57 90 08/11/17 03:57 96 Nasal Cannula 30.00 43 08/11/17 02:49 14 08/11/17 00:30 91 Nasal Cannula 30.00 46 08/10/17 23:00 99.0 80 22 95/63 (74) 91 119/49 (72) 08/10/17 23:00 90 08/10/17 23:00 91 Nasal Cannula 30.00 43 08/10/17 20:57 92 High Flow Nasal Cannula 30.00 43 08/10/17 19:30 80 08/10/17 19:30 99.2 80 22 112/43 (66) 91 08/10/17 19:30 91 Nasal Cannula 30.00 43 Labs: Laboratory Tests Test 08/11/17 11:30 White Blood Count 8.5 TH/MM3 (4.0-11.0) Red Blood Count 2.86 MIL/MM3 (4.50-5.90) Hemoglobin 8.6 GM/DL (13.0-17.0) Hematocrit 25.0 % (39.0-51.0) Mean Corpuscular Volume 87.2 FL (80.0-100.0) Mean Corpuscular Hemoglobin 30.1 PG (27.0-34.0) Mean Corpuscular Hemoglobin Concent 34.5 % (32.0-36.0) Red Cell Distribution Width 15.1 % (11.6-17.2) Platelet Count 173 TH/MM3 (150-450) Mean Platelet Volume 8.4 FL (7.0-11.0) Neutrophils (%) (Auto) 75.4 % (16.0-70.0) Lymphocytes (%) (Auto) 17.3 % (9.0-44.0) Monocytes (%) (Auto) 6.8 % (0.0-8.0) Eosinophils (%) (Auto) 0.4 % (0.0-4.0) Basophils (%) (Auto) 0.1 % (0.0-2.0) Neutrophils # (Auto) 6.4 TH/MM3 (1.8-7.7) Lymphocytes # (Auto) 1.5 TH/MM3 (1.0-4.8) Monocytes # (Auto) 0.6 TH/MM3 (0-0.9) Eosinophils # (Auto) 0.0 TH/MM3 (0-0.4) Basophils # (Auto) 0.0 TH/MM3 (0-0.2) CBC Comment DIFF FINAL Differential Comment Blood Urea Nitrogen 19 MG/DL (7-18) Creatinine 1.11 MG/DL (0.60-1.30) Random Glucose 110 MG/DL (74-106) Calcium Level 8.2 MG/DL (8.5-10.1) Sodium Level 137 MEQ/L (136-145) Potassium Level 4.0 MEQ/L (3.5-5.1) Chloride Level 103 MEQ/L (98-107) Carbon Dioxide Level 27.2 MEQ/L (21.0-32.0) Anion Gap 7 MEQ/L (5-15) Estimat Glomerular Filtration Rate 63 ML/MIN (>89) Result Diagram: 08/11/17 1130 08/11/17 1130 (1) S/P CABG x 4 Plan: ASA, statin, plavix , amiodarone weaning off dobutamine OOB, dc grullon cath pulm toileting nebs ezpap acapella (2) Chronic kidney disease (3) Coronary artery disease (4) Diastolic congestive heart failure, NYHA class 1 (5) History of CVA (cerebrovascular accident) (6) Hyperlipemia (7) COPD (chronic obstructive pulmonary disease) (8) Carotid stenosis, right Plan: will need f/u with Dr hughes as outpt (9) Blood loss anemia Plan: HGB 8.6/ f/u labs in am , consider ferrous sulfate Azra Robertson Aug 11, 2017 16:12
--- NOTE | 2017-08-11 16:12 | HHI.CCPN ---
Subjective Remarks/Hospital Course This is an 82-year-old gentleman with NYHA Class I, recently ruled in for NSTEMI. The patient underwent cardiac catheterization on 08/06 revealing 80% left main, 50% proximal LAD, 20% mid distal LAD, 70% diagonal, and 95% RCA. Today the patient underwent urgent off-pump CABG 4 vessels utilize the JUDD and reverse saphenous vein graft. Intraoperatively reported EF approximately 50 %. The patient was transferred to CVICU, on epinephrine 10 mcgs and dobutamine 2.5 mcgs. The patient was subsequently awakened, a RASS of -1 on Precedex infusion 0.1 mics per kilo per hour. SBT trials were initiated and reported as RSBI 26 FVC 900, positive cuff leak, however NIF was only -10. The patient was extubated, and immediately became hypoxemic, with inability to manually ventilate. Anesthesiology was notified stat ,the patient's O2 saturation decreased to 50%, the patient became bradycardic, approximately 32 mcgs of epinephrine was bolused, chest compressions initiated lasting approximately 20 seconds. The patient was reintubated by Dr. Jain, without any paralytics or sedatives, with immediate resumption of normal oxygenation. Discussion with Dr. Jain upon my arrival concern for CAMI, airway obstruction upon extubation (no oral airway), also possible bronchospasm relieved with epinephrine, as patient was still on Precedex infusion during extubation. Posterior reintubation, GCS 11 T -patient alert and responsive, following commands moving extremities 4. The patient was then placed back on my sedation a Precedex 0.1 mics per kilo per hour. Post intubation the patient's rhythm converted to A. fib RVR ranging from 140s to 160s, with short runs of V. tach, with a MAP in the 50's. Electrolytes were obtained previously the patient was noted to be hypokalemic with a potassium of 3.1 which was currently being repleted ( the patient had received 60 mEq), ionized calcium was noted to be 1.14, which was then being repleted. Phenylephrine infusion was initiated at 60mcgs, epinephrine was decreased dobutamine was maintained at 5 mcgs, with MAP responsive 70's-80's. Subjective: 08/09: No acute events overnight. The patient continued on vasopressors without escalation. Patient awake alert oriented, GCS 11T. CPAP trials for approximately 3.5 hours SBT perform, WNL. Patient extubated, O2 sat ranging 95 -97%. Weaning vasopressors as tolerated. 08/10: Remains on Ventimask. O2 sats borderline. Remains on epinephrine and dobutamine drips. 08/11: On high flow O2. Appears comfortable. Not in any acute distress. On dobutamine 5 mics per KG per minute. Objective Vital Signs Date Time Temp Pulse Resp B/P (MAP) Pulse Ox O2 Delivery O2 Flow Rate FiO2 08/11/17 15:00 95 Nasal Cannula 48 08/11/17 15:00 99.2 85 20 135/65 (88) 08/11/17 14:41 30.00 Intake and Output 08/11/17 08/11/17 08/12/17 08:00 16:00 00:00 Intake Total 821 ml Output Total 1555 ml Balance -734 ml Result Diagram: 08/11/17 1130 08/11/17 1130 Imaging Last Impressions Chest X-Ray 08/09/17 0500 Signed Impressions: Service Date/Time: Wednesday, August 09, 2017 03:13 - CONCLUSION: 1. Hazy opacity remains in the left lung greatest at the lung base. There is evidence of left effusion. 2. Status post median sternotomy with no pneumothorax. Kyle Velasco MD Lower Extremity Ultrasound 08/05/17 0000 Signed Impressions: Service Date/Time: Saturday, August 05, 2017 16:25 - CONCLUSION: Bilateral venous mapping as above. Matteo Vega MD Carotid Artery Ultrasound 08/05/17 0000 Signed Impressions: Service Date/Time: Saturday, August 05, 2017 15:56 - CONCLUSION: 1. Abnormal hemodynamic profile in the right internal carotid artery suggesting 50-70%% stenosis. 2. Normal hemodynamic profile on the left side. Matteo Vega MD Objective Remarks GENERAL: Obese male sitting up in chair, on high flow O2. Not in any acute distress SKIN: Warm and dry. HEAD: Atraumatic. Normocephalic. EYES: Pupils equal and round. No scleral icterus. No injection or drainage. ENT: No nasal bleeding or discharge. Mucous membranes pink and moist. NECK: Trachea midline. No JVD. Right IJ central line CARDIOVASCULAR: Irregular rhythm, irregular rate. 12-lead EKG A. fib RVR. Mediastinal chest tubes serosanguineous fluid RESPIRATORY: On high flow O2. Breath sounds equal bilaterally. Scattered rhonchi, no wheezing GASTROINTESTINAL: Abdomen soft, non-tender, nondistended. No guarding. MUSCULOSKELETAL: Extremities without clubbing, cyanosis, or edema. No obvious deformities. Left lower extremity status post saphenous vein harvest Sai wrap, toes brisk capillary refill NEUROLOGICAL: GCS 15. RASS 0. No gross focal/sensory deficits. Follows commands in all 4 extremities. Her history patient is hard of hearing, has a history of a CVA with right arm weakness as baseline, and slight facial droop Date of Insertion: Aug 08, 2017 Date of Removal: Aug 09, 2017 Date of Insertion: Aug 08, 2017 Side: Right (vasoactive medication administration) Location: Internal, Jugular A/P Assessment and Plan Assessment This is a 82-year-old male with NYHA 1, NSTEMI, with multivessel coronary artery disease, S/P off-pump CABG x 4 vessels. Patient is status post extubation with respiratory arrest, with reintubation and subsequent hemodynamic instability. Patient is critical. Plan Neurologic: History of CVA 1 year ago-mild deficits reportedly left facial droop and right arm weakness Hard of Hearing Follow neuro status, pain medications as needed per CT surgery Respiratory: Acute Hypoxemic Respiratory Failure CAMI? Reintubation 8.0 ETT 24 cm at the lip Maintain O2 saturation greater than 92% ABG and chest x-ray as clinically indicated Extubated following C Pap trial on 08/09, on high flow O2. Cardiovascular: S/P off-pump CABG 4 NYHA Classification 1 A. fib RVR Hyperlipidemia Multiple runs of V. tach Right carotid artery stenosis Maintain MAP greater than 65 Initial heart rate 140s-160s, MAP 50s. On dobutamine drip. CT surgery following. Renal: BPH Maintain Eisenberg catheter -- Strict I/Os FEN/GI: Electrolyte disturbances Replete electrolytes per CVICU protocol Hypokalemia Hypocalcemia Monitor BMP Heme/ID: Monitor CBC Endocrine: Hyperglycemia Insulin infusion per CTS surgery / CVICU protocol -- SSI Prophylaxis: GI Prophylaxis Protonix DVT Prophylaxis -- SCDs Anticoagulant management per CT surgery Lines: Central line in situ right IJ, left radial A-line Dispo: This patient remains critically ill with one or more organ systems which are or may become a threat to life. I have spent in excess of 30 minutes discontinuously in the care and management of this patient. This time is exclusive of procedures, and includes, but is not limited to, evaluation of the patient, review of the medical record, discussions with family, consultants, nursing staff, or respiratory therapy, and documentation in the medical record. Yinka Felix MD Aug 11, 2017 16:12
[2017-08-11] MEDS: ATORVASTATIN 40 MG TAB PO SCH (20:00)
[2017-08-11] MEDS: TERAZOSIN HCL 1 MG CAP PO SCH (20:00)
[2017-08-12] VITALS (9 sets, daily range): BP systolic 106–140; BP diastolic 56–67; PULSE 66–80; RESP 16–20; TEMP 98–99.3; O2SAT 93–99
[2017-08-12] MEDS: RESP: ALBUTEROL 2.5 MG/IPRATROPIUM 0.5 MG NEB (SCH) NEB ×3 (03:30→22:12)
[2017-08-12 04:21] LABS: AUTOMATED NEUTROPHIL # 5.5 TH/MM3 (1.8-7.7); BASOPHIL % 0.2 % (0.0-2.0); EOSINOPHIL # 0.1 TH/MM3 (0-0.4); EOSINOPHIL % 0.7 % (0.0-4.0); HEMATOCRIT 23.7 % (39.0-51.0); HEMO FLAGS DIFF FINAL; LYMPH % 20.6 % (9.0-44.0); LYMPHOCYTE # 1.6 TH/MM3 (1.0-4.8); MEAN CELL VOLUME 86.6 FL (80.0-100.0); MEAN CORPUSCULAR HEMOGLOBIN 30.7 PG (27.0-34.0); MEAN CORPUSCULAR HGB CONC 35.4 % (32.0-36.0); MONO % 7.2 % (0.0-8.0); NEUT % 71.3 % (16.0-70.0); PLATELET COUNT 200 TH/MM3 (150-450); RED BLOOD COUNT 2.73 MIL/MM3 (4.50-5.90); RED CELL DISTRIBUTION WIDTH 14.8 % (11.6-17.2); WHITE BLOOD COUNT 7.8 TH/MM3 (4.0-11.0)
[2017-08-12 04:44] LABS: ALT (GPT) 25 U/L (12-78); ANION GAP 7 MEQ/L (5-15); AST (GOT) 53 U/L (15-37); BICARBONATE 26.9 MEQ/L (21.0-32.0); BLOOD UREA NITROGEN 20 MG/DL (7-18); CHLORIDE 104 MEQ/L (98-107); GLOMERULAR FILTRATION RATE 65 ML/MIN (>89); MAGNESIUM 1.6 MG/DL (1.5-2.5); POTASSIUM 3.8 MEQ/L (3.5-5.1); SODIUM (NA) 138 MEQ/L (136-145)
[2017-08-12 04:47] LABS: ALKALINE PHOSPHATASE 81 U/L (45-117); TOTAL BILIRUBIN ADULT 1.1 MG/DL (0.2-1.0)
--- NOTE | 2017-08-12 05:27 | RADRPT ---
EXAM DATE/TIME: 08/12/2017 03:50 [facility] COMPARISON: CHEST SINGLE AP, August 09, 2017, 3:13. INDICATIONS : Short of breath. MEDICAL HISTORY : Hypercholesterolemia. Gastroesophageal reflux disease. Hypertension. SURGICAL HISTORY : CABG. Tonsillectomy. Hiatal hernia repair. ENCOUNTER: Subsequent ACUITY: 1 week PAIN SCORE: 0/10 LOCATION: Bilateral chest FINDINGS: The patient is status post sternotomy. The patient is rotated towards the right. The heart size appea rs normal. There is increased density at the bases bilaterally being worse in the left. There is silh ouetting the left hemidiaphragm. There some prominence of the interstitium especially in the left per ihilar region. CONCLUSION: Bibasilar areas of suspected atelectasis or consolidation with a left effusion. There is interstitial prominence which could suggest underlying edema. Domenic Dyson MD on August 12, 2017 at 5:24 Board Certified Radiologist. This report was verified electronically.
[2017-08-12] MEDS: INSULIN ASPART SUPPLEMENTAL SCALE SQ SCH ×4 (08:00→21:44)
[2017-08-12] MEDS: PANTOPRAZOLE SOD 20 MG DELAYED RELEASE TAB PO SCH ×2 (08:46→16:59)
[2017-08-12] MEDS: CLOPIDOGREL 75 MG TAB PO SCH (09:33)
[2017-08-12] MEDS: AMIODARONE 200 MG TAB PO SCH ×2 (09:33→21:36)
[2017-08-12] MEDS: ASPIRIN 81 MG CHEW TAB PO SCH (09:33)
[2017-08-12] MEDS: SODIUM CHLORIDE 0.9% FLUSH 10 ML FLUSH IV FLUSH SCH (09:34)
[2017-08-12] MEDS: METOPROLOL TARTRATE 25 MG TAB PO SCH ×2 (09:38→21:36)
[2017-08-12] MEDS ORDERED: FUROSEMIDE 40 MG/4 ML VIAL IV PUSH ONE (09:45)
[2017-08-12] MEDS ORDERED: POTASSIUM CHLORIDE 20 MEQ CONTROLLED RELEASE TAB PO ONE (10:00)
[2017-08-12] MEDS ORDERED: SOD PHOSPHATE/SOD BIPHOSPHATE (ADULT) ENEMA 133ML RECTAL PRN (10:00)
[2017-08-12] MEDS ORDERED: BISACODYL 10 MG SUPP RECTAL PRN (10:00)
--- NOTE | 2017-08-12 10:48 | RSPPFT ---
DATE OF PROCEDURE: 08/06/17 COMMENTS: Spirometry with FVC of 3.3 predicted 3.7, FEV1 of 2.3 predicted 2.8, FEV1/FVC ratio 70% predicted 76%. Patient has some reduction of flow at the level of the "small airways" with FEF 25 at 1.7 predicted 2.7. IMPRESSION: On the basis of the above, patient likely has a mild obstructive lung defect.
[2017-08-12] MEDS: FERROUS SULFATE 325 MG (65 MG ELEMENTAL IRON) TAB PO SCH ×2 (11:09→16:59)
[2017-08-12] MEDS: MAGNESIUM SULFATE 1 GM PREMIX 100 ML IV SCH ×2 (11:09→12:33)
[2017-08-12] MEDS: POLYETHYLENE GLYCOL 17 GM PKG PO SCH (11:14)
[2017-08-12] MEDS: MAGNESIUM HYDROXIDE SUSP 30 ML CUP PO SCH (11:14)
[2017-08-12] MEDS: BUDESONIDE-FORMOTEROL 160/4.5 MCG INHALER INH SCH (11:14)
[2017-08-12] MEDS: MULTIVITAMINS/MINERALS THERAPEUTIC TAB PO SCH (11:14)
--- NOTE | 2017-08-12 14:55 | HHI.CCPN ---
Subjective Remarks/Hospital Course This is an 82-year-old gentleman with NYHA Class I, recently ruled in for NSTEMI. The patient underwent cardiac catheterization on 08/06 revealing 80% left main, 50% proximal LAD, 20% mid distal LAD, 70% diagonal, and 95% RCA. Today the patient underwent urgent off-pump CABG 4 vessels utilize the JUDD and reverse saphenous vein graft. Intraoperatively reported EF approximately 50 %. The patient was transferred to CVICU, on epinephrine 10 mcgs and dobutamine 2.5 mcgs. The patient was subsequently awakened, a RASS of -1 on Precedex infusion 0.1 mics per kilo per hour. SBT trials were initiated and reported as RSBI 26 FVC 900, positive cuff leak, however NIF was only -10. The patient was extubated, and immediately became hypoxemic, with inability to manually ventilate. Anesthesiology was notified stat ,the patient's O2 saturation decreased to 50%, the patient became bradycardic, approximately 32 mcgs of epinephrine was bolused, chest compressions initiated lasting approximately 20 seconds. The patient was reintubated by Dr. Jain, without any paralytics or sedatives, with immediate resumption of normal oxygenation. Discussion with Dr. Jain upon my arrival concern for CAMI, airway obstruction upon extubation (no oral airway), also possible bronchospasm relieved with epinephrine, as patient was still on Precedex infusion during extubation. Posterior reintubation, GCS 11 T -patient alert and responsive, following commands moving extremities 4. The patient was then placed back on my sedation a Precedex 0.1 mics per kilo per hour. Post intubation the patient's rhythm converted to A. fib RVR ranging from 140s to 160s, with short runs of V. tach, with a MAP in the 50's. Electrolytes were obtained previously the patient was noted to be hypokalemic with a potassium of 3.1 which was currently being repleted ( the patient had received 60 mEq), ionized calcium was noted to be 1.14, which was then being repleted. Phenylephrine infusion was initiated at 60mcgs, epinephrine was decreased dobutamine was maintained at 5 mcgs, with MAP responsive 70's-80's. Subjective: 08/09: No acute events overnight. The patient continued on vasopressors without escalation. Patient awake alert oriented, GCS 11T. CPAP trials for approximately 3.5 hours SBT perform, WNL. Patient extubated, O2 sat ranging 95 -97%. Weaning vasopressors as tolerated. 08/10: Remains on Ventimask. O2 sats borderline. Remains on epinephrine and dobutamine drips. 08/11: On high flow O2. Appears comfortable. Not in any acute distress. On dobutamine 5 mics per KG per minute. 08/12: Remains on high flow O2. Appears comfortable. Dobutamine titrated off. Objective Vital Signs Date Time Temp Pulse Resp B/P (MAP) Pulse Ox O2 Delivery O2 Flow Rate FiO2 08/12/17 11: 98.8 74 20 129/56 (80) 99 08/12/17 11:00 30.00 60 08/12/17 10:20 High Flow Nasal Cannula Intake and Output 08/12/17 08/12/17 08/13/17 08:00 16:00 00:00 Intake Total 364 ml 100 ml Output Total 1265 ml Balance -901 ml 100 ml Result Diagram: 08/12/17 0340 08/12/17 0340 Imaging Last Impressions Chest X-Ray 08/09/17 0500 Signed Impressions: Service Date/Time: Wednesday, August 09, 2017 03:13 - CONCLUSION: 1. Hazy opacity remains in the left lung greatest at the lung base. There is evidence of left effusion. 2. Status post median sternotomy with no pneumothorax. Kyle Velasco MD Lower Extremity Ultrasound 08/05/17 0000 Signed Impressions: Service Date/Time: Saturday, August 05, 2017 16:25 - CONCLUSION: Bilateral venous mapping as above. Matteo Vega MD Carotid Artery Ultrasound 08/05/17 0000 Signed Impressions: Service Date/Time: Saturday, August 05, 2017 15:56 - CONCLUSION: 1. Abnormal hemodynamic profile in the right internal carotid artery suggesting 50-70%% stenosis. 2. Normal hemodynamic profile on the left side. Matteo Vega MD Objective Remarks GENERAL: Obese male sitting up in chair, on high flow O2. Not in any acute distress SKIN: Warm and dry. HEAD: Atraumatic. Normocephalic. EYES: Pupils equal and round. No scleral icterus. No injection or drainage. ENT: No nasal bleeding or discharge. Mucous membranes pink and moist. NECK: Trachea midline. No JVD. Right IJ central line CARDIOVASCULAR: Irregular rhythm, irregular rate. 12-lead EKG A. fib RVR. Mediastinal chest tubes serosanguineous fluid RESPIRATORY: On high flow O2. Breath sounds equal bilaterally. Scattered rhonchi, no wheezing GASTROINTESTINAL: Abdomen soft, non-tender, nondistended. No guarding. MUSCULOSKELETAL: Extremities without clubbing, cyanosis, or edema. No obvious deformities. Left lower extremity status post saphenous vein harvest Sai wrap, toes brisk capillary refill NEUROLOGICAL: GCS 15. RASS 0. No gross focal/sensory deficits. Follows commands in all 4 extremities. Patient is hard of hearing, has a history of a CVA with right arm weakness as baseline, and slight facial droop Date of Insertion: Aug 08, 2017 Date of Removal: Aug 09, 2017 Date of Insertion: Aug 08, 2017 Side: Right (vasoactive medication administration) Location: Internal, Jugular A/P Assessment and Plan Assessment This is a 82-year-old male with NYHA 1, NSTEMI, with multivessel coronary artery disease, S/P off-pump CABG x 4 vessels. Patient is status post extubation with respiratory arrest, with reintubation and subsequent hemodynamic instability. Patient is critical. Plan Neurologic: History of CVA 1 year ago-mild deficits reportedly left facial droop and right arm weakness Hard of Hearing Follow neuro status, pain medications as needed per CT surgery Respiratory: Acute Hypoxemic Respiratory Failure CAMI? Reintubation 8.0 ETT 24 cm at the lip Maintain O2 saturation greater than 92% ABG and chest x-ray as clinically indicated Extubated following C Pap trial on 08/09, on high flow O2. Cardiovascular: S/P off-pump CABG 4 NYHA Classification 1 A. fib RVR Hyperlipidemia Multiple runs of V. tach Right carotid artery stenosis Maintain MAP greater than 65 Initial heart rate 140s-160s, MAP 50s. Off dobutamine drip. CT surgery following. Being diuresed. Further recommendations per cardiology and CT surgery Renal: BPH Maintain Eisenberg catheter -- Strict I/Os FEN/GI: Electrolyte disturbances Replete electrolytes per CVICU protocol Hypokalemia Hypocalcemia Monitor BMP Heme/ID: Monitor CBC Endocrine: Hyperglycemia Insulin infusion per CTS surgery / CVICU protocol -- SSI Prophylaxis: GI Prophylaxis Protonix DVT Prophylaxis -- SCDs Anticoagulant management per CT surgery Lines: Central line in situ right IJ, left radial A-line Dispo: Yinka Felix MD Aug 12, 2017 14:55
--- NOTE | 2017-08-12 18:06 | PD.CAR.PN ---
CVT Progress Note Subjective/Hospital Course: 82-year-old male , patient of Dr. Hope Golden at the [facility] on the blue team. Bar Chopra , apparently started having some burning in his chest on Friday , noticed it after he was eating something. On Friday he seemed to be doing okay and then Friday he went to the [facility] for hearing test and his burning sensation started again, they did an electrocardiogram which is slightly abnormal and he was transferred over to the [facility] emergency room and had a work up. His electrocardiogram showed some moderate ST depression aVL, lead I , his troponins were elevated the highest at 14.1. He was ruled in for a non- STEMI. He underwent cardiac catheterization today which showed a left main disease of 80% proximal LAD 50%. The mid and distal LAD 20%. The diagonal 70% . The circ was 10. The OM 20%. The RCA 95%. 2-D echo shoed Ef 40% ( grade 1 diastolic dysfunction) mild MR. mild TR. We were consulted to evaluate for coronary artery bypass grafting. PAST MEDICAL HISTORY: History of cerebrovascular accident 1 year ago with a minimal speech defect, very light left facial drooping, mild right weakness in his arm.( hx of Left CEA 2 years ago ) current carotid US shows 50-70% stenosis right ICA 120sec velocity Benign prostatic hypertrophy Hyperlipidemia Cervical spondylosis. Esophageal dysphasia Hearing loss. 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 Urgent Off-pump Coronary Artery Bypass Grafting x 4 with Left Internal Mammary Artery (JUDD) to the Left Anterior Descending (LAD), reverse saphenous vein graft to the Obtuse Marginal 1 (OM1), reverse saphenous vein graft to the Posterior Descending Artery (RPDA), reverse saphenous vein graft to the Diagonal 1 (D1) 2. Left Leg Endoscopic Vein Thornton 3. Intraoperative Vein Mapping 08/09 Reintubated right after extubation yesterday. Awake and alert this morning. Wean to extubate Wean Epi and Dobutamine as tolerated Greatly appreciate Dr. Snyder's assistance Maintain CT to drainage 08/10 Remains on Dobutamine and Epi. Nick off. Weaning as tolerated Wean O2 as tolerated OOB to chair Maintain in ICU 08/11 weaning off dobutamine, BP stable, chest tubes dc without difficulty on high flow 02 at 48% OOB, keep in ICU today 08/12 high flow increased last night, now down to 50% off dobutamine, BP stable gentle diuresis pulm toileting OOB, ambulate Objective: GENERAL: SKIN: Warm and dry.prevena dressing to chest , incision intact to leg HEAD: Normocephalic. EYES: No scleral icterus. No injection or drainage. NECK: Supple, trachea midline. No JVD or lymphadenopathy. CARDIOVASCULAR: Regular rate and rhythm without murmurs, gallops, or rubs. RESPIRATORY: Breath sounds equal bilaterally. No accessory muscle use. few coarse breath sounds , diminished in bases GASTROINTESTINAL: Abdomen soft, non-tender, nondistended. MUSCULOSKELETAL: No cyanosis, or edema. BACK: Nontender without obvious deformity. No CVA tenderness. Vital Signs Date Time Temp Pulse Resp B/P (MAP) Pulse Ox O2 Delivery O2 Flow Rate FiO2 08/12/17 15:00 73 08/12/17 15:00 94 30.00 50 08/12/17 15:00 98.4 73 20 106/62 (77) 97 Arterial Line 08/12/17 11:00 98.8 74 20 129/56 (80) 99 08/12/17 11:00 95 30.00 60 08/12/17 11:00 78 08/12/17 10:20 97 High Flow Nasal Cannula 30.00 50 08/12/17 07:30 94 High Flow Nasal Cannula 30.00 60 08/12/17 07:00 78 08/12/17 07:00 95 30.00 60 08/12/17 07:00 98.0 78 20 108/67 (81) 95 131/59 (83) 08/12/17 03:00 91 30.00 50 08/12/17 03:00 99.3 79 17 140/59 (86) 93 08/12/17 03:00 79 08/11/17 23:00 94 30.00 48 08/11/17 23:00 76 08/11/17 23:00 99.6 73 17 113/45 (67) 95 08/11/17 20:15 97 High Flow Nasal Cannula 30.00 45 08/11/17 19:00 97 30.00 48 08/11/17 19:00 88 08/11/17 19:00 99.1 88 18 119/65 (83) 97 121/47 (71) Result Diagram: 08/12/17 0340 08/12/17 0340 (1) S/P CABG x 4 Plan: ASA, statin, plavix , amiodarone wean high flow 02 OOB, pulm toileting nebs ezpap acapella (2) Chronic kidney disease (3) Coronary artery disease (4) Diastolic congestive heart failure, NYHA class 1 (5) History of CVA (cerebrovascular accident) (6) Hyperlipemia (7) COPD (chronic obstructive pulmonary disease) (8) Carotid stenosis, right Plan: will need f/u with Dr hughes as outpt (9) Blood loss anemia Plan: HGB 8.6/ f/u labs in am , consider ferrous sulfate Azra Roberston Aug 12, 2017 18:06
--- NOTE | 2017-08-12 19:39 | PD.CARD.PN ---
Subjective Subjective Remarks Patient was seen earlier today, late entry note No events overnight Up in the chair, doing well, no complaints... currently on high flow O2 Off Epi, off Dobutamine Objective Medications Current Medications Medications (Trade) Dose Ordered Sig/Vince Route Start Time Stop Time Status Last Admin (Lopressor) 12.5 mg BID PO 08/05/17 09:00 08/12/17 09:38 (Hytrin) 2 mg HS PO 08/05/17 21:00 08/11/17 20:00 (Protonix) 20 mg BIDAC PO 08/05/17 07:00 08/12/17 16:59 (Lipitor) 40 mg HS PO 08/05/17 10:30 08/11/17 20:00 (NS Flush) 2 ml BID IV FLUSH 08/08/17 21:00 08/12/17 09:34 (NS Flush) 2 ml UNSCH PRN IV FLUSH 08/08/17 12:30 (Aspirin Chew) 81 mg DAILY PO 08/09/17 09:00 08/12/17 09:33 (Plavix) 75 mg DAILY PO 08/09/17 09:00 08/12/17 09:33 (Cordarone) 200 mg Q12HR PO 08/08/17 21:00 08/12/17 09:33 (Tylenol) 650 mg Q4H PRN PO 08/08/17 13:00 ([place] 5-325 Mg) 1 tab Q3H PRN PO 08/08/17 13:00 08/10/17 04:32 (Zofran Inj) 4 mg Q6H PRN IV PUSH 08/08/17 13:15 08/08/17 23:11 (Apresoline Inj) 10 mg Q4H PRN IV PUSH 08/08/17 13:00 Magnesium Sulfate 2 gm/Sodium Chloride 104 ml @ 100 mls/hr UNSCH PRN IV 08/08/17 13:00 (Duoneb Neb) 1 ampule Q2HR NEB PRN NEB 08/08/17 12:00 (D50w (Vial) Inj) 50 ml UNSCH PRN IV PUSH 08/09/17 11:30 (Glucagon Inj) 1 mg UNSCH PRN OTHER 08/09/17 11:30 Dobutamine HCl 250 mg/Dextrose 250 ml @ 12.525 mls/ hr [id number] IV 08/09/17 18:15 08/11/17 07:28 (NovoLOG SUPPLEMENTAL SCALE) 1 ACHS SQ 08/11/17 17:00 (K-Phos) 500 mg Q12HR PO 08/12/17 21:00 08/14/17 09:01 (Symbicort 160-4.5 Inh) 2 puff Q12HR INH 08/12/17 11:00 08/12/17 11:14 (Ferrous Sulfate) 325 mg BID@,17 PO 08/12/17 12:00 08/12/17 16:59 (Duoneb Neb) 1 ampule Q6HR WHILE AWAKE NEB NEB 08/12/17 14:00 08/14/17 13:59 (Colace) 100 mg BID PO 08/12/17 21:00 (Theragran M Tab) 1 tab DAILY PO 08/12/17 10:00 08/12/17 11:14 (Milk Of Magnesia Liq) 30 ml DAILY PO 08/12/17 10:00 08/12/17 11:14 (Dulcolax Supp) 10 mg UNSCH PRN RECTAL 08/12/17 10:00 (Miralax) 17 gm DAILY PO 08/12/17 10:00 08/12/17 11:14 (Senokot) 8.6 mg HS PO 08/12/17 21:00 (Fleets Enema (Adult)) 118 ml UNSCH PRN RECTAL 08/12/17 10:00 Vital Signs / I&O Vital Signs Date Time Temp Pulse Resp B/P (MAP) Pulse Ox O2 Delivery O2 Flow Rate FiO2 08/12/17 15:00 73 08/12/17 15:00 94 30.00 50 08/12/17 15:00 98.4 73 20 106/62 (77) 97 Arterial Line 08/12/17 11:00 98.8 74 20 129/56 (80) 99 08/12/17 11:00 95 30.00 60 08/12/17 11:00 78 08/12/17 10:20 97 High Flow Nasal Cannula 30.00 50 08/12/17 07:30 94 High Flow Nasal Cannula 30.00 60 08/12/17 07:00 78 08/12/17 07:00 95 30.00 60 08/12/17 07:00 98.0 78 20 108/67 (81) 95 131/59 (83) 08/12/17 03:00 91 30.00 50 08/12/17 03:00 99.3 79 17 140/59 (86) 93 08/12/17 03:00 79 08/11/17 23:00 94 30.00 48 08/11/17 23:00 76 08/11/17 23:00 99.6 73 17 113/45 (67) 95 08/11/17 20:15 97 High Flow Nasal Cannula 30.00 45 I/O 08/11/17 08/11/17 08/11/17 08/12/17 08/12/17 08/12/17 07:00 15:00 23:00 07:00 15:00 23:00 Intake Total 821 ml 240 ml 364 ml 200 ml 360 ml Output Total 1555 ml 1750 ml 1265 ml 1850 ml Balance -734 ml -1510 ml -901 ml 200 ml -1490 ml Intake Oral 240 ml 240 ml 240 ml 360 ml IV Total 581 ml 124 ml 200 ml Output Urine Total 1555 ml 1750 ml 1265 ml 1850 ml Chest Tube Drainage Total 0 ml # Bowel Movements 0 0 0 Physical Exam GENERAL: NAD, AAOx3 SKIN: Warm and dry. HEAD: Atraumatic. Normocephalic. EYES: Pupils equal and round. No scleral icterus. No injection or drainage. ENT: No nasal bleeding or discharge. Mucous membranes pink and moist. NECK: Trachea midline. No JVD. CARDIOVASCULAR: Regular rate and rhythm. RESPIRATORY: No accessory muscle use. Decreased breath sounds bilaterally GASTROINTESTINAL: Abdomen soft, non-tender, nondistended. Hepatic and splenic margins not palpable. MUSCULOSKELETAL: Extremities without clubbing, cyanosis, or edema. No obvious deformities. NEUROLOGICAL: Awake and alert. Moving all 4 extremities Laboratory Laboratory Tests Test 08/12/17 03:40 White Blood Count 7.8 TH/MM3 Red Blood Count 2.73 MIL/MM3 Hemoglobin 8.4 GM/DL Hematocrit 23.7 % Mean Corpuscular Volume 86.6 FL Mean Corpuscular Hemoglobin 30.7 PG Mean Corpuscular Hemoglobin Concent 35.4 % Red Cell Distribution Width 14.8 % Platelet Count 200 TH/MM3 Mean Platelet Volume 8.6 FL Neutrophils (%) (Auto) 71.3 % Lymphocytes (%) (Auto) 20.6 % Monocytes (%) (Auto) 7.2 % Eosinophils (%) (Auto) 0.7 % Basophils (%) (Auto) 0.2 % Neutrophils # (Auto) 5.5 TH/MM3 Lymphocytes # (Auto) 1.6 TH/MM3 Monocytes # (Auto) 0.6 TH/MM3 Eosinophils # (Auto) 0.1 TH/MM3 Basophils # (Auto) 0.0 TH/MM3 CBC Comment DIFF FINAL Differential Comment Blood Urea Nitrogen 20 MG/DL Creatinine 1.08 MG/DL Random Glucose 88 MG/DL Total Protein 5.5 GM/DL Albumin 2.1 GM/DL Calcium Level 8.2 MG/DL Phosphorus Level 2.4 MG/DL Magnesium Level 1.6 MG/DL Alkaline Phosphatase 81 U/L Aspartate Amino Transf (AST/SGOT) 53 U/L Alanine Aminotransferase (ALT/SGPT) 25 U/L Total Bilirubin 1.1 MG/DL Sodium Level 138 MEQ/L Potassium Level 3.8 MEQ/L Chloride Level 104 MEQ/L Carbon Dioxide Level 26.9 MEQ/L Anion Gap 7 MEQ/L Estimat Glomerular Filtration Rate 65 ML/MIN Imaging Last 24 hours Impressions Chest X-Ray 08/12/17 0600 Signed Impressions: Service Date/Time: Saturday, August 12, 2017 03:50 - CONCLUSION: Bibasilar areas of suspected atelectasis or consolidation with a left effusion. There is interstitial prominence which could suggest underlying edema. Domenic Dyson MD Assessment and Plan Problem List: (1) S/P CABG x 4 ICD Codes: Z95.1 - Presence of aortocoronary bypass graft (2) Chronic kidney disease ICD Codes: N18.9 - Chronic kidney disease, unspecified (3) Coronary artery disease ICD Codes: I25.10 - Atherosclerotic heart disease of [place] coronary artery without angina pectoris (4) Diastolic congestive heart failure, NYHA class 1 ICD Codes: I50.30 - Unspecified diastolic (congestive) heart failure (5) History of CVA (cerebrovascular accident) ICD Codes: Z86.73 - Personal history of transient ischemic attack (TIA), and cerebral infarction without residual deficits (6) Hyperlipemia ICD Codes: E78.5 - Hyperlipidemia, unspecified (7) COPD (chronic obstructive pulmonary disease) ICD Codes: J44.9 - Chronic obstructive pulmonary disease, unspecified (8) Carotid stenosis, right ICD Codes: I65.21 - Occlusion and stenosis of right carotid artery (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
[2017-08-12] MEDS: POTASSIUM PHOSPHATE MONOBASIC 500 MG TAB PO SCH (21:36)
[2017-08-12] MEDS: ATORVASTATIN 40 MG TAB PO SCH (21:36)
[2017-08-12] MEDS: TERAZOSIN HCL 1 MG CAP PO SCH (21:36)
[2017-08-12] MEDS: SENNOSIDES 8.6 MG TAB PO SCH (21:36)
[2017-08-12] MEDS: DOCUSATE SODIUM 100 MG CAP PO SCH (21:36)
[2017-08-13] VITALS (12 sets, daily range): BP systolic 93–123; BP diastolic 57–65; PULSE 60–92; RESP 16–20; TEMP 97.8–98.3; O2SAT 91–96
[2017-08-13 05:49] LABS: HEMATOCRIT 26.6 % (39.0-51.0); MEAN CELL VOLUME 87.6 FL (80.0-100.0); MEAN CORPUSCULAR HEMOGLOBIN 28.8 PG (27.0-34.0); MEAN CORPUSCULAR HGB CONC 32.9 % (32.0-36.0); PLATELET COUNT 256 TH/MM3 (150-450); RED BLOOD COUNT 3.04 MIL/MM3 (4.50-5.90); RED CELL DISTRIBUTION WIDTH 14.8 % (11.6-17.2); REVIEW FLAG FINAL; WHITE BLOOD COUNT 6.6 TH/MM3 (4.0-11.0)
[2017-08-13 06:14] LABS: BICARBONATE 27.9 MEQ/L (21.0-32.0); MAGNESIUM 1.9 MG/DL (1.5-2.5); POTASSIUM 3.7 MEQ/L (3.5-5.1)
[2017-08-13] MEDS: PANTOPRAZOLE SOD 20 MG DELAYED RELEASE TAB PO SCH ×2 (06:15→17:59)
--- NOTE | 2017-08-13 07:38 | HHI.CCPN ---
Subjective Remarks/Hospital Course This is an 82-year-old gentleman with NYHA Class I, recently ruled in for NSTEMI. The patient underwent cardiac catheterization on 08/06 revealing 80% left main, 50% proximal LAD, 20% mid distal LAD, 70% diagonal, and 95% RCA. Today the patient underwent urgent off-pump CABG 4 vessels utilize the JUDD and reverse saphenous vein graft. Intraoperatively reported EF approximately 50 %. The patient was transferred to CVICU, on epinephrine 10 mcgs and dobutamine 2.5 mcgs. The patient was subsequently awakened, a RASS of -1 on Precedex infusion 0.1 mics per kilo per hour. SBT trials were initiated and reported as RSBI 26 FVC 900, positive cuff leak, however NIF was only -10. The patient was extubated, and immediately became hypoxemic, with inability to manually ventilate. Anesthesiology was notified stat ,the patient's O2 saturation decreased to 50%, the patient became bradycardic, approximately 32 mcgs of epinephrine was bolused, chest compressions initiated lasting approximately 20 seconds. The patient was reintubated by Dr. Jain, without any paralytics or sedatives, with immediate resumption of normal oxygenation. Discussion with Dr. Jain upon my arrival concern for CAMI, airway obstruction upon extubation (no oral airway), also possible bronchospasm relieved with epinephrine, as patient was still on Precedex infusion during extubation. Posterior reintubation, GCS 11 T -patient alert and responsive, following commands moving extremities 4. The patient was then placed back on my sedation a Precedex 0.1 mics per kilo per hour. Post intubation the patient's rhythm converted to A. fib RVR ranging from 140s to 160s, with short runs of V. tach, with a MAP in the 50's. Electrolytes were obtained previously the patient was noted to be hypokalemic with a potassium of 3.1 which was currently being repleted ( the patient had received 60 mEq), ionized calcium was noted to be 1.14, which was then being repleted. Phenylephrine infusion was initiated at 60mcgs, epinephrine was decreased dobutamine was maintained at 5 mcgs, with MAP responsive 70's-80's. Subjective: 08/09: No acute events overnight. The patient continued on vasopressors without escalation. Patient awake alert oriented, GCS 11T. CPAP trials for approximately 3.5 hours SBT perform, WNL. Patient extubated, O2 sat ranging 95 -97%. Weaning vasopressors as tolerated. 08/10: Remains on Ventimask. O2 sats borderline. Remains on epinephrine and dobutamine drips. 08/11: On high flow O2. Appears comfortable. Not in any acute distress. On dobutamine 5 mics per KG per minute. 08/12: Remains on high flow O2. Appears comfortable. Dobutamine titrated off. 08/13: Still on high flow O2 however requirement coming down. On 30 L/m 30% FiO2. Denies any chest pain. Appears comfortable sitting up in bed currently. Not in any acute distress. Diuresing well. Objective Vital Signs Date Time Temp Pulse Resp B/P (MAP) Pulse Ox O2 Delivery O2 Flow Rate FiO2 08/13/17 03:00 98.1 62 18 103/57 (72) 96 08/13/17 03:00 Nasal Cannula 20.00 50 Humidified Intake and Output 08/13/17 08/13/17 08/14/17 08:00 16:00 00:00 Intake Total 240 ml Output Total 500 ml Balance -260 ml Result Diagram: 08/13/17 0455 08/13/17 0455 Imaging Last Impressions Chest X-Ray 08/09/17 0500 Signed Impressions: Service Date/Time: Wednesday, August 09, 2017 03:13 - CONCLUSION: 1. Hazy opacity remains in the left lung greatest at the lung base. There is evidence of left effusion. 2. Status post median sternotomy with no pneumothorax. Kyle Velasco MD Lower Extremity Ultrasound 08/05/17 0000 Signed Impressions: Service Date/Time: Saturday, August 05, 2017 16:25 - CONCLUSION: Bilateral venous mapping as above. Matteo Vega MD Carotid Artery Ultrasound 08/05/17 0000 Signed Impressions: Service Date/Time: Saturday, August 05, 2017 15:56 - CONCLUSION: 1. Abnormal hemodynamic profile in the right internal carotid artery suggesting 50-70%% stenosis. 2. Normal hemodynamic profile on the left side. Matteo Vega MD Objective Remarks GENERAL: Obese male sitting up in chair, on high flow O2. Not in any acute distress SKIN: Warm and dry. HEAD: Atraumatic. Normocephalic. EYES: Pupils equal and round. No scleral icterus. No injection or drainage. ENT: No nasal bleeding or discharge. Mucous membranes pink and moist. NECK: Trachea midline. No JVD. Right IJ central line CARDIOVASCULAR: Irregular rhythm, irregular rate. 12-lead EKG A. fib RVR. Mediastinal chest tubes serosanguineous fluid RESPIRATORY: On high flow O2. Breath sounds equal bilaterally. Scattered rhonchi, no wheezing GASTROINTESTINAL: Abdomen soft, non-tender, nondistended. No guarding. MUSCULOSKELETAL: Extremities without clubbing, cyanosis, or edema. No obvious deformities. Left lower extremity status post saphenous vein harvest Sai wrap, toes brisk capillary refill NEUROLOGICAL: GCS 15. RASS 0. No gross focal/sensory deficits. Follows commands in all 4 extremities. Patient is hard of hearing, has a history of a CVA with right arm weakness as baseline, and slight facial droop Date of Insertion: Aug 08, 2017 Date of Removal: Aug 09, 2017 Date of Insertion: Aug 08, 2017 Side: Right (vasoactive medication administration) Location: Internal, Jugular A/P Assessment and Plan Assessment This is a 82-year-old male with NYHA 1, NSTEMI, with multivessel coronary artery disease, S/P off-pump CABG x 4 vessels. Patient is status post extubation with respiratory arrest, with reintubation and subsequent hemodynamic instability which is now resolved. Remains in respiratory failure requiring high flow O2. Plan Neurologic: History of CVA 1 year ago-mild deficits reportedly left facial droop and right arm weakness Hard of Hearing Follow neuro status, pain medications as needed per CT surgery Respiratory: Acute Hypoxemic Respiratory Failure CAMI? Reintubation 8.0 ETT 24 cm at the lip Maintain O2 saturation greater than 92% ABG and chest x-ray as clinically indicated Extubated following C Pap trial on 08/09, on high flow O2. Cardiovascular: S/P off-pump CABG 4 NYHA Classification 1 A. fib RVR Hyperlipidemia Multiple runs of V. tach Right carotid artery stenosis Maintain MAP greater than [address] surgery following. Being diuresed. Further recommendations per cardiology and CT surgery Renal: BPH Maintain Eisenberg catheter -- Strict I/Os FEN/GI: Electrolyte disturbances Replete electrolytes per CVICU protocol Hypokalemia Hypocalcemia Monitor BMP Heme/ID: Monitor CBC Endocrine: Hyperglycemia -- SSI Prophylaxis: GI Prophylaxis Protonix DVT Prophylaxis -- SCDs Anticoagulant management per CT surgery Lines: Central line in situ right IJ Yinka Felix MD Aug 13, 2017 07:38
[2017-08-13] MEDS: INSULIN ASPART SUPPLEMENTAL SCALE SQ SCH ×4 (08:00→22:24)
[2017-08-13] MEDS: RESP: ALBUTEROL 2.5 MG/IPRATROPIUM 0.5 MG NEB (SCH) NEB ×3 (08:04→20:20)
[2017-08-13] MEDS: BUDESONIDE-FORMOTEROL 160/4.5 MCG INHALER INH SCH ×2 (09:00→22:24)
[2017-08-13] MEDS: CLOPIDOGREL 75 MG TAB PO SCH (09:00)
[2017-08-13] MEDS: SODIUM CHLORIDE 0.9% FLUSH 10 ML FLUSH IV FLUSH SCH ×2 (09:00→21:08)
[2017-08-13] MEDS: POTASSIUM PHOSPHATE MONOBASIC 500 MG TAB PO SCH ×2 (09:10→22:24)
[2017-08-13] MEDS: DOCUSATE SODIUM 100 MG CAP PO SCH ×2 (09:10→21:08)
[2017-08-13] MEDS: POLYETHYLENE GLYCOL 17 GM PKG PO SCH (09:11)
[2017-08-13] MEDS: MAGNESIUM HYDROXIDE SUSP 30 ML CUP PO SCH (09:11)
[2017-08-13] MEDS: AMIODARONE 200 MG TAB PO SCH ×2 (09:11→21:09)
[2017-08-13] MEDS: METOPROLOL TARTRATE 25 MG TAB PO SCH ×2 (09:11→21:09)
[2017-08-13] MEDS: MULTIVITAMINS/MINERALS THERAPEUTIC TAB PO SCH (09:11)
[2017-08-13] MEDS: ASPIRIN 81 MG CHEW TAB PO SCH (09:11)
[2017-08-13] MEDS ORDERED: BISACODYL 10 MG SUPP RECTAL ONE (11:00)
[2017-08-13] MEDS ORDERED: SOD PHOSPHATE/SOD BIPHOSPHATE (ADULT) ENEMA 133ML PR ONE (11:00)
[2017-08-13] MEDS ORDERED: MAGNESIUM SULFATE 1 GM PREMIX 100 ML IV ONE (11:00)
[2017-08-13] MEDS ORDERED: POTASSIUM CHLORIDE 20 MEQ CONTROLLED RELEASE TAB PO ONE (11:45)
[2017-08-13] MEDS ORDERED: FUROSEMIDE 20 MG/2 ML VIAL IV PUSH ONE (12:00)
[2017-08-13] MEDS ORDERED: POTASSIUM CHLORIDE 10 MEQ CONTROLLED RELEASE TAB PO ONE (12:30)
[2017-08-13] MEDS: FERROUS SULFATE 325 MG (65 MG ELEMENTAL IRON) TAB PO SCH ×2 (12:47→17:59)
--- NOTE | 2017-08-13 13:09 | PD.CAR.PN ---
CVT Progress Note Subjective/Hospital Course: 82-year-old male , patient of Dr. Hope Golden at the [facility] on the blue team. Bar Chopra , apparently started having some burning in his chest on Friday , noticed it after he was eating something. On Friday he seemed to be doing okay and then Friday he went to the DC for hearing test and his burning sensation started again, they did an electrocardiogram which is slightly abnormal and he was transferred over to the [facility] emergency room and had a work up. His electrocardiogram showed some moderate ST depression aVL, lead I , his troponins were elevated the highest at 14.1. He was ruled in for a non- STEMI. He underwent cardiac catheterization today which showed a left main disease of 80% proximal LAD 50%. The mid and distal LAD 20%. The diagonal 70% . The circ was 10. The OM 20%. The RCA 95%. 2-D echo shoed Ef 40% ( grade 1 diastolic dysfunction) mild MR. mild TR. We were consulted to evaluate for coronary artery bypass grafting. PAST MEDICAL HISTORY: History of cerebrovascular accident 1 year ago with a minimal speech defect, very light left facial drooping, mild right weakness in his arm.( hx of Left CEA 2 years ago ) current carotid US shows 50-70% stenosis right ICA 120sec velocity Benign prostatic hypertrophy Hyperlipidemia Cervical spondylosis. Esophageal dysphasia Hearing loss. 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 Urgent Off-pump Coronary Artery Bypass Grafting x 4 with Left Internal Mammary Artery (JUDD) to the Left Anterior Descending (LAD), reverse saphenous vein graft to the Obtuse Marginal 1 (OM1), reverse saphenous vein graft to the Posterior Descending Artery (RPDA), reverse saphenous vein graft to the Diagonal 1 (D1) 2. Left Leg Endoscopic Vein [place] 3. Intraoperative Vein Mapping 08/09 Reintubated right after extubation yesterday. Awake and alert this morning. Wean to extubate Wean Epi and Dobutamine as tolerated Greatly appreciate Dr. Snyder's assistance Maintain CT to drainage 08/10 Remains on Dobutamine and Epi. Nick off. Weaning as tolerated Wean O2 as tolerated OOB to chair Maintain in ICU 08/11 weaning off dobutamine, BP stable, chest tubes dc without difficulty on high flow 02 at 48% OOB, keep in ICU today 08/12 high flow increased last night, now down to 50% off dobutamine, BP stable gentle diuresis pulm toileting OOB, ambulate 08/13 now on 50% venti mask will transfer to stepdown unit continue PT/OT pulm toileting will need SNF placement gentle diuresis remains in NSR Objective: GENERAL: SKIN: Warm and dry. prevena dressing to chest , incision intact left leg HEAD: Normocephalic. EYES: No scleral icterus. No injection or drainage. NECK: Supple, trachea midline. No JVD or lymphadenopathy. CARDIOVASCULAR: Regular rate and rhythm without murmurs, gallops, or rubs. RESPIRATORY: Breath sounds equal bilaterally. No accessory muscle use. few scattered rhonchi , diminished in bases, improved with cough , few basilar crackles GASTROINTESTINAL: Abdomen soft, non-tender, nondistended. MUSCULOSKELETAL: No cyanosis, or edema. BACK: Nontender without obvious deformity. No CVA tenderness. Vital Signs Date Time Temp Pulse Resp B/P (MAP) Pulse Ox O2 Delivery O2 Flow Rate FiO2 08/13/17 11:00 98.3 65 18 110/65 (80) 95 08/13/17 11:00 97 Venturi Mask 50 08/13/17 11:00 65 08/13/17 08:04 91 High Flow Nasal Cannula 20.00 30 08/13/17 08:00 95 Nasal Cannula 20.00 30 08/13/17 08:00 97.9 69 18 98/60 (73) 95 08/13/17 08:00 69 08/13/17 03:00 98.1 62 18 103/57 (72) 96 08/13/17 03:00 91 Nasal Cannula 20.00 50 Humidified 08/13/17 03:00 60 08/12/17 23:00 70 08/12/17 23:00 98.7 66 16 115/64 (81) 96 08/12/17 23:00 96 Nasal Cannula 25.00 50 Humidified 08/12/17 22:12 95 High Flow Nasal Cannula 30.00 35 08/12/17 19:00 98.9 75 18 120/62 (81) 96 08/12/17 19:00 96 Nasal Cannula 30.00 50 Humidified 08/12/17 19:00 80 08/12/17 15:00 73 08/12/17 15:00 94 30.00 50 08/12/17 15:00 98.4 73 20 106/62 (77) 97 Arterial Line Labs: Laboratory Tests Test 08/13/17 04:55 White Blood Count 6.6 TH/MM3 (4.0-11.0) Red Blood Count 3.04 MIL/MM3 (4.50-5.90) Hemoglobin 8.7 GM/DL (13.0-17.0) Hematocrit 26.6 % (39.0-51.0) Mean Corpuscular Volume 87.6 FL (80.0-100.0) Mean Corpuscular Hemoglobin 28.8 PG (27.0-34.0) Mean Corpuscular Hemoglobin Concent 32.9 % (32.0-36.0) Red Cell Distribution Width 14.8 % (11.6-17.2) Platelet Count 256 TH/MM3 (150-450) Mean Platelet Volume 7.7 FL (7.0-11.0) Blood Urea Nitrogen 24 MG/DL (7-18) Creatinine 1.19 MG/DL (0.60-1.30) Random Glucose 103 MG/DL (74-106) Calcium Level 8.2 MG/DL (8.5-10.1) Magnesium Level 1.9 MG/DL (1.5-2.5) Sodium Level 137 MEQ/L (136-145) Potassium Level 3.7 MEQ/L (3.5-5.1) Chloride Level 103 MEQ/L (98-107) Carbon Dioxide Level 27.9 MEQ/L (21.0-32.0) Anion Gap 6 MEQ/L (5-15) Estimat Glomerular Filtration Rate 58 ML/MIN (>89) Result Diagram: 08/13/1745408/13/17454 (1) S/P CABG x 4 Plan: ASA, statin, plavix , amiodarone now on venti mask wean 02 for sat >89% OOB, pulm toileting nebs ezpap [place] (2) Chronic kidney disease Plan: stable (3) Coronary artery disease (4) Diastolic congestive heart failure, NYHA class 1 Plan: gentle diuresis (5) History of CVA (cerebrovascular accident) (6) Hyperlipemia (7) COPD (chronic obstructive pulmonary disease) (8) Carotid stenosis, right Plan: will need f/u with Dr hughes as outpt (9) Blood loss anemia Plan: HGB 8.6> .8.7/ f/u labs in am , add ferrous sulfate Azra Robertson Aug 13, 2017 13:09
--- NOTE | 2017-08-13 18:58 | PD.CARD.PN ---
Subjective Subjective Remarks No events overnight Up in the chair, doing well, no complaints... currently on high flow O2, but switching to NRB Off Epi, off Dobutamine Objective Medications Current Medications Medications (Trade) Dose Ordered Sig/Vince Route Start Time Stop Time Status Last Admin (Lopressor) 12.5 mg BID PO 08/05/17 09:00 08/13/17 09:11 (Hytrin) 2 mg HS PO 08/05/17 21:00 08/12/17 21:36 (Protonix) 20 mg BIDAC PO 08/05/17 07:00 08/13/17 17:59 (Lipitor) 40 mg HS PO 08/05/17 10:30 08/12/17 21:36 (NS Flush) 2 ml BID IV FLUSH 08/08/17 21:00 08/13/17 09:00 (NS Flush) 2 ml UNSCH PRN IV FLUSH 08/08/17 12:30 (Aspirin Chew) 81 mg DAILY PO 08/09/17 09:00 08/13/17 09:11 (Plavix) 75 mg DAILY PO 08/09/17 09:00 08/13/17 09:00 (Cordarone) 200 mg Q12HR PO 08/08/17 21:00 08/13/17 09:11 (Tylenol) 650 mg Q4H PRN PO 08/08/17 13:00 ([place] 5-325 Mg) 1 tab Q3H PRN PO 08/08/17 13:00 08/10/17 04:32 (Zofran Inj) 4 mg Q6H PRN IV PUSH 08/08/17 13:15 08/08/17 23:11 (Apresoline Inj) 10 mg Q4H PRN IV PUSH 08/08/17 13:00 Magnesium Sulfate 2 gm/Sodium Chloride 104 ml @ 100 mls/hr UNSCH PRN IV 08/08/17 13:00 (Duoneb Neb) 1 ampule Q2HR NEB PRN NEB 08/08/17 12:00 (D50w (Vial) Inj) 50 ml UNSCH PRN IV PUSH 08/09/17 11:30 (Glucagon Inj) 1 mg UNSCH PRN OTHER 08/09/17 11:30 (NovoLOG SUPPLEMENTAL SCALE) 1 ACHS SQ 08/11/17 17:00 08/13/17 08:00 (K-Phos) 500 mg Q12HR PO 08/12/17 21:00 08/14/17 09:01 08/13/17 09:10 (Symbicort 160-4.5 Inh) 2 puff Q12HR INH 08/12/17 11:00 08/13/17 09:00 (Ferrous Sulfate) 325 mg BID@12,17 PO 08/12/17 12:00 08/13/17 17:59 (Duoneb Neb) 1 ampule Q6HR WHILE AWAKE NEB NEB 08/12/17 14:00 08/14/17 13:59 08/13/17 13:43 (Colace) 100 mg BID PO 08/12/17 21:00 08/13/17 09:10 (Theragran M Tab) 1 tab DAILY PO 08/12/17 10:00 08/13/17 09:11 (Milk Of Magnesia Liq) 30 ml DAILY PO 08/12/17 10:00 08/13/17 09:11 (Dulcolax Supp) 10 mg UNSCH PRN RECTAL 08/12/17 10:00 (Miralax) 17 gm DAILY PO 08/12/17 10:00 08/13/17 09:11 (Senokot) 8.6 mg HS PO 08/12/17 21:00 08/12/17 21:36 (Fleets Enema (Adult)) 118 ml UNSCH PRN RECTAL 08/12/17 10:00 Vital Signs / I&O Vital Signs Date Time Temp Pulse Resp B/P (MAP) Pulse Ox O2 Delivery O2 Flow Rate FiO2 08/13/17 15:00 97 Venturi Mask 50 08/13/17 15:00 65 08/13/17 15:00 98.3 74 16 116/60 (78) 96 08/13/17 14:30 72 20 123/58 (79) 94 08/13/17 11:00 98.3 65 18 110/65 (80) 95 08/13/17 11:00 97 Venturi Mask 50 08/13/17 11:00 65 08/13/17 08:04 91 High Flow Nasal Cannula 20.00 30 08/13/17 08:00 95 Nasal Cannula 20.00 30 08/13/17 08:00 97.9 69 18 98/60 (73) 95 08/13/17 08:00 69 08/13/17 03:00 98.1 62 18 103/57 (72) 96 08/13/17 03:00 91 Nasal Cannula 20.00 50 Humidified 08/13/17 03:00 60 08/12/17 23:00 70 08/12/17 23:00 98.7 66 16 115/64 (81) 96 08/12/17 23:00 96 Nasal Cannula 25.00 50 Humidified 08/12/17 22:12 95 High Flow Nasal Cannula 30.00 35 08/12/17 19:00 98.9 75 18 120/62 (81) 96 08/12/17 19:00 96 Nasal Cannula 30.00 50 Humidified 08/12/17 19:00 80 I/O 08/12/17 08/12/17 08/12/17 08/13/17 08/13/17 08/13/17 07:00 15:00 23:00 07:00 15:00 23:00 Intake Total 364 ml 200 ml 360 ml 240 ml Output Total 1265 ml 1850 ml 500 ml Balance -901 ml 200 ml -1490 ml -260 ml Intake Oral 240 ml 360 ml 240 ml IV Total 124 ml 200 ml Output Urine Total 1265 ml 1850 ml 500 ml # Bowel Movements 0 0 Physical Exam GENERAL: NAD, AAOx3 SKIN: Warm and dry. HEAD: Atraumatic. Normocephalic. EYES: Pupils equal and round. No scleral icterus. No injection or drainage. ENT: No nasal bleeding or discharge. Mucous membranes pink and moist. NECK: Trachea midline. No JVD. CARDIOVASCULAR: Regular rate and rhythm. RESPIRATORY: No accessory muscle use. Decreased breath sounds bilaterally GASTROINTESTINAL: Abdomen soft, non-tender, nondistended. Hepatic and splenic margins not palpable. MUSCULOSKELETAL: Extremities without clubbing, cyanosis, or edema. No obvious deformities. NEUROLOGICAL: Awake and alert. Moving all 4 extremities Laboratory Laboratory Tests Test 08/13/17 04:55 White Blood Count 6.6 TH/MM3 Red Blood Count 3.04 MIL/MM3 Hemoglobin 8.7 GM/DL Hematocrit 26.6 % Mean Corpuscular Volume 87.6 FL Mean Corpuscular Hemoglobin 28.8 PG Mean Corpuscular Hemoglobin Concent 32.9 % Red Cell Distribution Width 14.8 % Platelet Count 256 TH/MM3 Mean Platelet Volume 7.7 FL Blood Urea Nitrogen 24 MG/DL Creatinine 1.19 MG/DL Random Glucose 103 MG/DL Calcium Level 8.2 MG/DL Magnesium Level 1.9 MG/DL Sodium Level 137 MEQ/L Potassium Level 3.7 MEQ/L Chloride Level 103 MEQ/L Carbon Dioxide Level 27.9 MEQ/L Anion Gap 6 MEQ/L Estimat Glomerular Filtration Rate 58 ML/MIN Assessment and Plan Problem List: (1) S/P CABG x 4 ICD Codes: Z95.1 - Presence of aortocoronary bypass graft (2) Chronic kidney disease ICD Codes: N18.9 - Chronic kidney disease, unspecified (3) Coronary artery disease ICD Codes: I25.10 - Atherosclerotic heart disease of [place] coronary artery without angina pectoris (4) Diastolic congestive heart failure, NYHA class 1 ICD Codes: I50.30 - Unspecified diastolic (congestive) heart failure (5) History of CVA (cerebrovascular accident) ICD Codes: Z86.73 - Personal history of transient ischemic attack (TIA), and cerebral infarction without residual deficits (6) Hyperlipemia ICD Codes: E78.5 - Hyperlipidemia, unspecified (7) COPD (chronic obstructive pulmonary disease) ICD Codes: J44.9 - Chronic obstructive pulmonary disease, unspecified (8) Carotid stenosis, right ICD Codes: I65.21 - Occlusion and stenosis of right carotid artery (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
[2017-08-13] MEDS: SENNOSIDES 8.6 MG TAB PO SCH (21:08)
[2017-08-13] MEDS: ATORVASTATIN 40 MG TAB PO SCH (21:09)
[2017-08-13] MEDS: TERAZOSIN HCL 1 MG CAP PO SCH (21:09)
[2017-08-14] VITALS (26 sets, daily range): BP systolic 92–104; BP diastolic 51–62; PULSE 60–72; RESP 16–20; TEMP 97.5–98; O2SAT 93–97
[2017-08-14] MEDS: PANTOPRAZOLE SOD 20 MG DELAYED RELEASE TAB PO SCH ×2 (05:57→16:21)
[2017-08-14 06:24] LABS: BICARBONATE 28.6 MEQ/L (21.0-32.0); POTASSIUM 3.9 MEQ/L (3.5-5.1)
[2017-08-14] MEDS: RESP: ALBUTEROL 2.5 MG/IPRATROPIUM 0.5 MG NEB (SCH) NEB (08:25)
[2017-08-14] MEDS: INSULIN ASPART SUPPLEMENTAL SCALE SQ SCH ×4 (08:33→20:45)
[2017-08-14] MEDS: MAGNESIUM HYDROXIDE SUSP 30 ML CUP PO SCH (08:33)
[2017-08-14] MEDS: POLYETHYLENE GLYCOL 17 GM PKG PO SCH (08:33)
[2017-08-14] MEDS: DOCUSATE SODIUM 100 MG CAP PO SCH ×2 (08:34→20:38)
[2017-08-14] MEDS: CLOPIDOGREL 75 MG TAB PO SCH (08:35)
[2017-08-14] MEDS: MULTIVITAMINS/MINERALS THERAPEUTIC TAB PO SCH (08:35)
[2017-08-14] MEDS: ASPIRIN 81 MG CHEW TAB PO SCH (08:36)
[2017-08-14] MEDS: METOPROLOL TARTRATE 25 MG TAB PO SCH ×2 (08:36→20:40)
[2017-08-14] MEDS: SODIUM CHLORIDE 0.9% FLUSH 10 ML FLUSH IV FLUSH SCH ×2 (08:36→20:39)
[2017-08-14] MEDS: BUDESONIDE-FORMOTEROL 160/4.5 MCG INHALER INH SCH ×2 (08:37→20:39)
--- NOTE | 2017-08-14 10:11 | RADRPT ---
EXAM DATE/TIME: 08/14/2017 09:29 [place] COMPARISON: CHEST SINGLE AP, August 12, 2017, 3:50. INDICATIONS : Short of breath. Followup abnormal AP chest exam demonstrating bibasilar areas of atelectasis or cons olidation as well as apparent left effusion.. MEDICAL HISTORY : Arthritis. Hypercholesterolemia. Gastroesophageal reflux disease. Hypertension. Hearing loss. C erebrovascular accident. Coronary artery disease. Anticoagulant therapy. Hiatal hernia. BPH. SURGICAL HISTORY : CABG. Tonsillectomy. Hemorrhoidectomy. Neck surgery. ENCOUNTER: Subsequent ACUITY: 2 weeks PAIN SCORE: 0/10 LOCATION: chest FINDINGS: PA and lateral view of the chest were obtained and demonstrated mild blunting of the costophrenic an gles. There is no focal consolidation. The patient is status post median sternotomy. The heart size r emains mildly prominent. The bony thorax is intact with multiple overlying electrocardiogram leads. CONCLUSION: 1. Mild blunting of costophrenic angles most consistent with small effusions. 2. No focal consolidation or perihilar edema. Kyle Velasco MD on August 14, 2017 at 10:08 Board Certified Radiologist. This report was verified electronically.
[2017-08-14] MEDS: AMIODARONE 200 MG TAB PO SCH ×2 (10:54→20:39)
[2017-08-14] MEDS: POTASSIUM PHOSPHATE MONOBASIC 500 MG TAB PO SCH (10:55)
[2017-08-14] MEDS: FERROUS SULFATE 325 MG (65 MG ELEMENTAL IRON) TAB PO SCH ×2 (12:26→16:21)
--- NOTE | 2017-08-14 16:44 | PD.CAR.PN ---
CVT Progress Note Subjective/Hospital Course: 82-year-old male , patient of Dr. Hope Golden at the [facility] on the blue team. Bar Chopra , apparently started having some burning in his chest on Friday , noticed it after he was eating something. On Friday he seemed to be doing okay and then Friday he went to the [facility] for hearing test and his burning sensation started again, they did an electrocardiogram which is slightly abnormal and he was transferred over to the [facility] emergency room and had a work up. His electrocardiogram showed some moderate ST depression aVL, lead I , his troponins were elevated the highest at 14.1. He was ruled in for a non- STEMI. He underwent cardiac catheterization today which showed a left main disease of 80% proximal LAD 50%. The mid and distal LAD 20%. The diagonal 70% . The circ was 10. The OM 20%. The RCA 95%. 2-D echo shoed Ef 40% ( grade 1 diastolic dysfunction) mild MR. mild TR. We were consulted to evaluate for coronary artery bypass grafting. PAST MEDICAL HISTORY: History of cerebrovascular accident 1 year ago with a minimal speech defect, very light left facial drooping, mild right weakness in his arm.( hx of Left CEA 2 years ago ) current carotid US shows 50-70% stenosis right ICA 120sec velocity Benign prostatic hypertrophy Hyperlipidemia Cervical spondylosis. Esophageal dysphasia Hearing loss. 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 Urgent Off-pump Coronary Artery Bypass Grafting x 4 with Left Internal Mammary Artery (JUDD) to the Left Anterior Descending (LAD), reverse saphenous vein graft to the Obtuse Marginal 1 (OM1), reverse saphenous vein graft to the Posterior Descending Artery (RPDA), reverse saphenous vein graft to the Diagonal 1 (D1) 2. Left Leg Endoscopic Vein [place] 3. Intraoperative Vein Mapping 08/09 Reintubated right after extubation yesterday. Awake and alert this morning. Wean to extubate Wean Epi and Dobutamine as tolerated Greatly appreciate Dr. Snyder's assistance Maintain CT to drainage 08/10 Remains on Dobutamine and Epi. Nick off. Weaning as tolerated Wean O2 as tolerated OOB to chair Maintain in ICU 08/11 weaning off dobutamine, BP stable, chest tubes dc without difficulty on high flow 02 at 48% OOB, keep in ICU today 08/12 high flow increased last night, now down to 50% off dobutamine, BP stable gentle diuresis pulm toileting OOB, ambulate 08/13 now on 50% venti mask will transfer to stepdown unit continue PT/OT pulm toileting will need SNF placement gentle diuresis remains in NSR 08/14 eval for dc to rehab in am , wean 02 for sat >89% now on 3 liter nasal cannula remains in NSR pt has episode of bloody sputum, faint hematuria UA and sputum pending plavix held Objective: GENERAL: SKIN: Warm and dry. prevena dressing to chest , incision intact to leg HEAD: Normocephalic. EYES: No scleral icterus. No injection or drainage. NECK: Supple, trachea midline. No JVD or lymphadenopathy. CARDIOVASCULAR: Regular rate and rhythm without murmurs, gallops, or rubs. RESPIRATORY: diminished in bases , few crackles Breath sounds equal bilaterally. No accessory muscle use. GASTROINTESTINAL: Abdomen soft, non-tender, nondistended. MUSCULOSKELETAL: No cyanosis, or edema. BACK: Nontender without obvious deformity. No CVA tenderness. Vital Signs Date Time Temp Pulse Resp B/P (MAP) Pulse Ox O2 Delivery O2 Flow Rate FiO2 08/14/17 16:00 66 08/14/17 15:00 95 Nasal Cannula 3.00 08/14/17 15:00 67 20 104/58 (73) 95 08/14/17 15:00 63 08/14/17 14:00 62 08/14/17 13:00 64 08/14/17 12:00 60 08/14/17 11:00 62 08/14/17 11:00 96 Nasal Cannula 3.00 08/14/17 11:00 97.9 61 19 99/51 (67) 96 08/14/17 10:00 62 08/14/17 09:00 64 08/14/17 08:33 94 Nasal Cannula 4.00 08/14/17 08:00 62 08/14/17 07:00 61 08/14/17 07:00 97.6 63 19 96/56 (69) 93 08/14/17 07:00 93 Venturi Mask 3.50 31 08/14/17 06:00 61 08/14/17 05:00 61 08/14/17 04:00 60 08/14/17 03:00 98.0 66 16 92/55 (67) 94 08/14/17 03:00 66 08/14/17 03:00 94 Venturi Mask 3.00 31 08/14/17 02:00 63 08/14/17 01:00 64 08/14/17 00:00 72 08/13/17 23:00 98.0 75 16 93/62 (72) 96 08/13/17 23:00 96 Venturi Mask 5.00 35 08/13/17 23:00 70 08/13/17 22:00 92 08/13/17 21:00 74 08/13/17 20:20 93 Venturi Mask 6.00 50 08/13/17 20:00 72 08/13/17 19:00 72 08/13/17 19:00 97.8 73 18 100/59 (73) 95 08/13/17 19:00 95 Venturi Mask 5.00 50 Labs: Laboratory Tests Test 08/14/17 05:30 Blood Urea Nitrogen 26 MG/DL (7-18) Creatinine 1.26 MG/DL (0.60-1.30) Random Glucose 160 MG/DL (74-106) Calcium Level 8.3 MG/DL (8.5-10.1) Sodium Level 138 MEQ/L (136-145) Potassium Level 3.9 MEQ/L (3.5-5.1) Chloride Level 102 MEQ/L (98-107) Carbon Dioxide Level 28.6 MEQ/L (21.0-32.0) Anion Gap 7 MEQ/L (5-15) Estimat Glomerular Filtration Rate 55 ML/MIN (>89) Result Diagram: 08/13/175 08/14/17 0530 (1) S/P CABG x 4 Plan: ASA, statin, , amiodarone plavix held wean 02 for sat >89% OOB, pulm toileting nebs ezpap [place] (2) Chronic kidney disease Plan: stable (3) Coronary artery disease (4) Diastolic congestive heart failure, NYHA class 1 Plan: gentle diuresis (5) History of CVA (cerebrovascular accident) (6) Hyperlipemia (7) COPD (chronic obstructive pulmonary disease) (8) Carotid stenosis, right Plan: will need f/u with Dr hughes as outpt (9) Blood loss anemia Plan: HGB 8.6> .8.7/ f/u labs in am , add ferrous sulfate Azra Robertson Aug 14, 2017 16:44
[2017-08-14] MEDS: TERAZOSIN HCL 1 MG CAP PO SCH (20:38)
[2017-08-14] MEDS: ATORVASTATIN 40 MG TAB PO SCH (20:39)
[2017-08-14] MEDS: SENNOSIDES 8.6 MG TAB PO SCH (20:39)
--- NOTE | 2017-08-14 21:00 | PD.CARD.PN ---
Subjective Subjective Remarks No events overnight Up in bed, doing well, no complaints... currently on 3L O2 Objective Medications Current Medications Medications (Trade) Dose Ordered Sig/Vince Route Start Time Stop Time Status Last Admin (Lopressor) 12.5 mg BID PO 08/05/17 09:00 08/14/17 08:36 (Hytrin) 2 mg HS PO 08/05/17 21:00 08/14/17 20:38 (Protonix) 20 mg BIDAC PO 08/05/17 07:00 08/14/17 16:21 (Lipitor) 40 mg HS PO 08/05/17 10:30 08/14/17 20:39 (NS Flush) 2 ml BID IV FLUSH 08/08/17 21:00 08/14/17 20:39 (NS Flush) 2 ml UNSCH PRN IV FLUSH 08/08/17 12:30 (Aspirin Chew) 81 mg DAILY PO 08/09/17 09:00 08/14/17 08:36 (Plavix) 75 mg DAILY PO 08/09/17 09:00 Future Hold 08/14/17 08:35 (Cordarone) 200 mg Q12HR PO 08/08/17 21:00 08/14/17 20:39 (Tylenol) 650 mg Q4H PRN PO 08/08/17 13:00 ([place] 5-325 Mg) 1 tab Q3H PRN PO 08/08/17 13:00 08/10/17 04:32 (Zofran Inj) 4 mg Q6H PRN IV PUSH 08/08/17 13:15 08/08/17 23:11 (Apresoline Inj) 10 mg Q4H PRN IV PUSH 08/08/17 13:00 Magnesium Sulfate 2 gm/Sodium Chloride 104 ml @ 100 mls/hr UNSCH PRN IV 08/08/17 13:00 (Duoneb Neb) 1 ampule Q2HR NEB PRN NEB 08/08/17 12:00 (D50w (Vial) Inj) 50 ml UNSCH PRN IV PUSH 08/09/17 11:30 (Glucagon Inj) 1 mg UNSCH PRN OTHER 08/09/17 11:30 (NovoLOG SUPPLEMENTAL SCALE) 1 ACHS SQ 08/11/17 17:00 08/14/17 20:45 (Symbicort 160-4.5 Inh) 2 puff Q12HR INH 08/12/17 11:00 08/14/17 20:39 (Ferrous Sulfate) 325 mg BID@,17 PO 08/12/17 12:00 08/14/17 16:21 (Colace) 100 mg BID PO 08/12/17 21:00 08/14/17 20:38 (Theragran M Tab) 1 tab DAILY PO 08/12/17 10:00 08/14/17 08:35 (Milk Of Magnesia Liq) 30 ml DAILY PO 08/12/17 10:00 08/14/17 08:33 (Miralax) 17 gm DAILY PO 08/12/17 10:00 08/14/17 08:33 (Senokot) 8.6 mg HS PO 08/12/17 21:00 08/14/17 20:39 (Fleets Enema (Adult)) 118 ml UNSCH PRN RECTAL 08/12/17 10:00 Vital Signs / I&O Vital Signs Date Time Temp Pulse Resp B/P (MAP) Pulse Ox O2 Delivery O2 Flow Rate FiO2 08/14/17 19:59 95 Nasal Cannula 3.00 08/14/17 18:00 68 08/14/17 17:00 68 08/14/17 16:00 66 08/14/17 15:00 95 Nasal Cannula 3.00 08/14/17 15:00 67 20 104/58 (73) 95 08/14/17 15:00 63 08/14/17 14:00 62 08/14/17 13:00 64 08/14/17 12:00 60 08/14/17 11:00 62 08/14/17 11:00 96 Nasal Cannula 3.00 08/14/17 11:00 97.9 61 19 99/51 (67) 96 08/14/17 10:00 62 08/14/17 09:00 64 08/14/17 08:33 94 Nasal Cannula 4.00 08/14/17 08:00 62 08/14/17 07:00 61 08/14/17 07:00 97.6 63 19 96/56 (69) 93 08/14/17 07:00 93 Venturi Mask 3.50 31 08/14/17 06:00 61 08/14/17 05:00 61 08/14/17 04:00 60 08/14/17 03:00 98.0 66 16 92/55 (67) 94 08/14/17 03:00 66 08/14/17 03:00 94 Venturi Mask 3.00 31 08/14/17 02:00 63 08/14/17 01:00 64 08/14/17 00:00 72 08/13/17 23:00 98.0 75 16 93/62 (72) 96 08/13/17 23:00 96 Venturi Mask 5.00 35 08/13/17 23:00 70 08/13/17 22:00 92 08/13/17 21:00 74 I/O 08/13/17 08/13/17 08/13/17 08/14/17 08/14/17 08/14/17 07:00 15:00 23:00 07:00 15:00 23:00 Intake Total 240 ml 480 ml 480 ml 240 ml Output Total 500 ml 175 ml 225 ml 250 ml Balance -260 ml 305 ml 255 ml -10 ml Intake Oral 240 ml 480 ml 480 ml 240 ml Output Urine Total 500 ml 175 ml 225 ml 250 ml # Voids 2 # Bowel Movements 0 2 Physical Exam GENERAL: NAD, AAOx3 SKIN: Warm and dry. HEAD: Atraumatic. Normocephalic. EYES: Pupils equal and round. No scleral icterus. No injection or drainage. ENT: No nasal bleeding or discharge. Mucous membranes pink and moist. NECK: Trachea midline. No JVD. CARDIOVASCULAR: Regular rate and rhythm. RESPIRATORY: No accessory muscle use. Decreased breath sounds bilaterally GASTROINTESTINAL: Abdomen soft, non-tender, nondistended. Hepatic and splenic margins not palpable. MUSCULOSKELETAL: Extremities without clubbing, cyanosis, or edema. No obvious deformities. NEUROLOGICAL: Awake and alert. Moving all 4 extremities Laboratory Laboratory Tests Test 08/14/17 05:30 Blood Urea Nitrogen 26 MG/DL Creatinine 1.26 MG/DL Random Glucose 160 MG/DL Calcium Level 8.3 MG/DL Sodium Level 138 MEQ/L Potassium Level 3.9 MEQ/L Chloride Level 102 MEQ/L Carbon Dioxide Level 28.6 MEQ/L Anion Gap 7 MEQ/L Estimat Glomerular Filtration Rate 55 ML/MIN Imaging Last 24 hours Impressions Chest X-Ray 08/14/17 0800 Signed Impressions: Service Date/Time: Thursday, August 14, 2017 09:29 - CONCLUSION: 1. Mild blunting of costophrenic angles most consistent with small effusions. 2. No focal consolidation or perihilar edema. Kyle Velasco MD Assessment and Plan Problem List: (1) S/P CABG x 4 ICD Codes: Z95.1 - Presence of aortocoronary bypass graft (2) Chronic kidney disease ICD Codes: N18.9 - Chronic kidney disease, unspecified (3) Coronary artery disease ICD Codes: I25.10 - Atherosclerotic heart disease of [place] coronary artery without angina pectoris (4) Diastolic congestive heart failure, NYHA class 1 ICD Codes: I50.30 - Unspecified diastolic (congestive) heart failure (5) History of CVA (cerebrovascular accident) ICD Codes: Z86.73 - Personal history of transient ischemic attack (TIA), and cerebral infarction without residual deficits (6) Hyperlipemia ICD Codes: E78.5 - Hyperlipidemia, unspecified (7) COPD (chronic obstructive pulmonary disease) ICD Codes: J44.9 - Chronic obstructive pulmonary disease, unspecified (8) Carotid stenosis, right ICD Codes: I65.21 - Occlusion and stenosis of right carotid artery (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
[2017-08-15] VITALS (14 sets, daily range): BP systolic 96–108; BP diastolic 51–61; PULSE 60–72; RESP 18–19; TEMP 97.6–98.1; O2SAT 96–97
[2017-08-15] MEDS: PANTOPRAZOLE SOD 20 MG DELAYED RELEASE TAB PO SCH (05:26)
[2017-08-15 06:18] LABS: AUTOMATED NEUTROPHIL # 5.7 TH/MM3 (1.8-7.7); BASOPHIL % 0.4 % (0.0-2.0); EOSINOPHIL # 0.2 TH/MM3 (0-0.4); EOSINOPHIL % 2.3 % (0.0-4.0); HEMATOCRIT 27.5 % (39.0-51.0); HEMO FLAGS DIFF FINAL; LYMPH % 17.6 % (9.0-44.0); LYMPHOCYTE # 1.4 TH/MM3 (1.0-4.8); MEAN CELL VOLUME 87.8 FL (80.0-100.0); MEAN CORPUSCULAR HEMOGLOBIN 28.6 PG (27.0-34.0); MEAN CORPUSCULAR HGB CONC 32.5 % (32.0-36.0); MONO % 7.1 % (0.0-8.0); NEUT % 72.6 % (16.0-70.0); PLATELET COUNT 387 TH/MM3 (150-450); RED BLOOD COUNT 3.13 MIL/MM3 (4.50-5.90); WHITE BLOOD COUNT 7.9 TH/MM3 (4.0-11.0)
[2017-08-15 06:20] LABS: BICARBONATE 27.3 MEQ/L (21.0-32.0)
[2017-08-15] MEDS: DOCUSATE SODIUM 100 MG CAP PO SCH (08:22)
[2017-08-15] MEDS: METOPROLOL TARTRATE 25 MG TAB PO SCH (08:22)
[2017-08-15] MEDS: MULTIVITAMINS/MINERALS THERAPEUTIC TAB PO SCH (08:22)
[2017-08-15] MEDS: MAGNESIUM HYDROXIDE SUSP 30 ML CUP PO SCH (08:22)
[2017-08-15] MEDS: POLYETHYLENE GLYCOL 17 GM PKG PO SCH (08:22)
[2017-08-15] MEDS: BUDESONIDE-FORMOTEROL 160/4.5 MCG INHALER INH SCH (08:22)
[2017-08-15] MEDS: AMIODARONE 200 MG TAB PO SCH (08:23)
[2017-08-15] MEDS: ASPIRIN 81 MG CHEW TAB PO SCH (08:23)
[2017-08-15] MEDS: INSULIN ASPART SUPPLEMENTAL SCALE SQ SCH ×2 (08:24→12:00)
[2017-08-15] MEDS: SODIUM CHLORIDE 0.9% FLUSH 10 ML FLUSH IV FLUSH SCH (08:24)
[2017-08-15] MEDS: FERROUS SULFATE 325 MG (65 MG ELEMENTAL IRON) TAB PO SCH (12:13)
--- NOTE | 2017-08-15 12:57 | PD.CARD.PN ---
Subjective Subjective Remarks No events overnight Up in bed, doing well, no complaints... currently on 2L O2 Objective Medications Current Medications Medications (Trade) Dose Ordered Sig/Vince Route Start Time Stop Time Status Last Admin (Lopressor) 12.5 mg BID PO 08/05/17 09:00 08/15/17 08:22 (Hytrin) 2 mg HS PO 08/05/17 21:00 08/14/17 20:38 (Protonix) 20 mg BIDAC PO 08/05/17 07:00 08/15/17 05:26 (Lipitor) 40 mg HS PO 08/05/17 10:30 08/14/17 20:39 (NS Flush) 2 ml BID IV FLUSH 08/08/17 21:00 08/15/17 08:24 (NS Flush) 2 ml UNSCH PRN IV FLUSH 08/08/17 12:30 (Aspirin Chew) 81 mg DAILY PO 08/09/17 09:00 08/15/17 08:23 (Plavix) 75 mg DAILY PO 08/09/17 09:00 Future Hold 08/14/17 08:35 (Cordarone) 200 mg Q12HR PO 08/08/17 21:00 08/15/17 08:23 (Tylenol) 650 mg Q4H PRN PO 08/08/17 13:00 ([place] 5-325 Mg) 1 tab Q3H PRN PO 08/08/17 13:00 08/10/17 04:32 (Zofran Inj) 4 mg Q6H PRN IV PUSH 08/08/17 13:15 08/08/17 23:11 (Apresoline Inj) 10 mg Q4H PRN IV PUSH 08/08/17 13:00 Magnesium Sulfate 2 gm/Sodium Chloride 104 ml @ 100 mls/hr UNSCH PRN IV 08/08/17 13:00 (Duoneb Neb) 1 ampule Q2HR NEB PRN NEB 08/08/17 12:00 (D50w (Vial) Inj) 50 ml UNSCH PRN IV PUSH 08/09/17 11:30 (Glucagon Inj) 1 mg UNSCH PRN OTHER 08/09/17 11:30 (NovoLOG SUPPLEMENTAL SCALE) 1 ACHS SQ 08/11/17 17:00 08/15/17 08:24 (Symbicort 160-4.5 Inh) 2 puff Q12HR INH 08/12/17 11:00 08/15/17 08:22 (Ferrous Sulfate) 325 mg BID@,17 PO 08/12/17 12:00 08/15/17 12:13 (Colace) 100 mg BID PO 08/12/17 21:00 08/15/17 08:22 (Theragran M Tab) 1 tab DAILY PO 08/12/17 10:00 08/15/17 08:22 (Milk Of Magnesia Liq) 30 ml DAILY PO 08/12/17 10:00 08/15/17 08:22 (Miralax) 17 gm DAILY PO 08/12/17 10:00 08/15/17 08:22 (Senokot) 8.6 mg HS PO 08/12/17 21:00 08/14/17 20:39 (Fleets Enema (Adult)) 118 ml UNSCH PRN RECTAL 08/12/17 10:00 Vital Signs / I&O Vital Signs Date Time Temp Pulse Resp B/P (MAP) Pulse Ox O2 Delivery O2 Flow Rate FiO2 08/15/17 12:00 64 08/15/17 11:00 97.6 66 19 104/58 (73) 96 08/15/17 11:00 96 Nasal Cannula 2.00 08/15/17 11:00 66 08/15/17 10:00 64 08/15/17 09:00 60 08/15/17 08:00 68 08/15/17 07:02 96 Nasal Cannula 2.00 08/15/17 07:02 72 08/15/17 07:02 97.6 69 19 108/61 (77) 96 08/15/17 06:00 63 08/15/17 05:00 66 08/15/17 04:00 62 08/15/17 03:00 98.1 67 18 96/51 (66) 97 08/15/17 03:00 68 08/15/17 03:00 95 Nasal Cannula 3.00 08/15/17 02:00 66 08/15/17 01:00 62 08/15/17 00:00 68 08/14/17 23:00 97.5 69 18 104/62 (76) 94 08/14/17 23:00 97 Nasal Cannula 3.00 08/14/17 23:00 66 08/14/17 22:00 66 08/14/17 21:00 66 08/14/17 20:00 98.0 70 18 95/55 (68) 97 08/14/17 20:00 97 Nasal Cannula 3.00 08/14/17 20:00 68 08/14/17 19:59 95 Nasal Cannula 3.00 08/14/17 19:00 66 08/14/17 18:00 68 08/14/17 17:00 68 08/14/17 16:00 66 08/14/17 15:00 95 Nasal Cannula 3.00 08/14/17 15:00 67 20 104/58 (73) 95 08/14/17 15:00 63 08/14/17 14:00 62 08/14/17 13:00 64 I/O 08/14/17 08/14/17 08/14/17 08/15/17 08/15/17 08/15/17 07:00 15:00 23:00 07:00 15:00 23:00 Intake Total 480 ml 240 ml 480 ml Output Total 225 ml 250 ml 300 ml Balance 255 ml -10 ml 180 ml Intake Oral 480 ml 240 ml 480 ml Output Urine Total 225 ml 250 ml 300 ml # Voids 2 # Bowel Movements 2 0 Physical Exam GENERAL: NAD, AAOx3 SKIN: Warm and dry. HEAD: Atraumatic. Normocephalic. EYES: Pupils equal and round. No scleral icterus. No injection or drainage. ENT: No nasal bleeding or discharge. Mucous membranes pink and moist. NECK: Trachea midline. No JVD. CARDIOVASCULAR: Regular rate and rhythm. RESPIRATORY: No accessory muscle use. Decreased breath sounds bilaterally GASTROINTESTINAL: Abdomen soft, non-tender, nondistended. Hepatic and splenic margins not palpable. MUSCULOSKELETAL: Extremities without clubbing, cyanosis, or edema. No obvious deformities. NEUROLOGICAL: Awake and alert. Moving all 4 extremities Laboratory Laboratory Tests Test 08/15/17 05:40 White Blood Count 7.9 TH/MM3 Red Blood Count 3.13 MIL/MM3 Hemoglobin 8.9 GM/DL Hematocrit 27.5 % Mean Corpuscular Volume 87.8 FL Mean Corpuscular Hemoglobin 28.6 PG Mean Corpuscular Hemoglobin Concent 32.5 % Red Cell Distribution Width 15.0 % Platelet Count 387 TH/MM3 Mean Platelet Volume 7.5 FL Neutrophils (%) (Auto) 72.6 % Lymphocytes (%) (Auto) 17.6 % Monocytes (%) (Auto) 7.1 % Eosinophils (%) (Auto) 2.3 % Basophils (%) (Auto) 0.4 % Neutrophils # (Auto) 5.7 TH/MM3 Lymphocytes # (Auto) 1.4 TH/MM3 Monocytes # (Auto) 0.6 TH/MM3 Eosinophils # (Auto) 0.2 TH/MM3 Basophils # (Auto) 0.0 TH/MM3 CBC Comment DIFF FINAL Differential Comment Blood Urea Nitrogen 23 MG/DL Creatinine 1.23 MG/DL Random Glucose 151 MG/DL Calcium Level 8.4 MG/DL Sodium Level 139 MEQ/L Potassium Level 4.0 MEQ/L Chloride Level 105 MEQ/L Carbon Dioxide Level 27.3 MEQ/L Anion Gap 7 MEQ/L Estimat Glomerular Filtration Rate 56 ML/MIN Assessment and Plan Problem List: (1) S/P CABG x 4 ICD Codes: Z95.1 - Presence of aortocoronary bypass graft (2) Chronic kidney disease ICD Codes: N18.9 - Chronic kidney disease, unspecified (3) Coronary artery disease ICD Codes: I25.10 - Atherosclerotic heart disease of [place] coronary artery without angina pectoris (4) Diastolic congestive heart failure, NYHA class 1 ICD Codes: I50.30 - Unspecified diastolic (congestive) heart failure (5) History of CVA (cerebrovascular accident) ICD Codes: Z86.73 - Personal history of transient ischemic attack (TIA), and cerebral infarction without residual deficits (6) Hyperlipemia ICD Codes: E78.5 - Hyperlipidemia, unspecified (7) COPD (chronic obstructive pulmonary disease) ICD Codes: J44.9 - Chronic obstructive pulmonary disease, unspecified (8) Carotid stenosis, right ICD Codes: I65.21 - Occlusion and stenosis of right carotid artery (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
[2017-08-15] MEDS ORDERED: Budeson-Formot 160-4.5 Mg Inh INH (13:02)
[2017-08-15] MEDS ORDERED: DOCU1CAP39 PO (13:02)
[2017-08-15] MEDS ORDERED: METO25TA3 PO (13:02)
[2017-08-15] MEDS ORDERED: POLY17S PO (13:02)
[2017-08-15] MEDS ORDERED: AMIO200T PO (13:02)
[2017-08-15] MEDS ORDERED: FERR325T20 PO (13:02)
[2017-08-15] MEDS ORDERED: HYDR-3516 PO (13:02)
[2017-08-15] MEDS ORDERED: ASPI81TA23 PO (13:02)
[2017-08-15] MEDS ORDERED: VENTAER INH (13:04)
--- NOTE | 2017-08-15 13:21 | HHI.DS ---
Discharge Summary Admission Date Aug 04, 2017 at 22:09 Discharge Date: Aug 15, 2017 Admitting Diagnosis CP R/O [place] (1) Hyperlipemia Diagnosis: Principal ICD Codes: E78.5 - Hyperlipidemia, unspecified (2) Chronic kidney disease Diagnosis: Principal ICD Codes: N18.9 - Chronic kidney disease, unspecified (3) History of CVA (cerebrovascular accident) Diagnosis: Principal ICD Codes: Z86.73 - Personal history of transient ischemic attack (TIA), and cerebral infarction without residual deficits (4) S/P CABG x 4 Diagnosis: Secondary ICD Codes: Z95.1 - Presence of aortocoronary bypass graft (5) Blood loss anemia Diagnosis: Principal ICD Codes: D50.0 - Iron deficiency anemia secondary to blood loss (chronic) (6) COPD (chronic obstructive pulmonary disease) ICD Codes: J44.9 - Chronic obstructive pulmonary disease, unspecified Procedures 08/08 1. Urgent Off-pump Coronary Artery Bypass Grafting x 4 with Left Internal Mammary Artery (JUDD) to the Left Anterior Descending (LAD), reverse saphenous vein graft to the Obtuse Marginal 1 (OM1), reverse saphenous vein graft to the Posterior Descending Artery (RPDA), reverse saphenous vein graft to the Diagonal 1 (D1) 2. Left Leg Endoscopic Vein [place] 3. Intraoperative Vein Mapping Brief History Subjective/Hospital Course: 82-year-old male , patient of Dr. Hope Golden at the [place] on the blue team. [place] , apparently started having some burning in his chest on Friday , noticed it after he was eating something. On Friday he seemed to be doing okay and then Friday he went to the [place] for hearing test and his burning sensation started again, they did an electrocardiogram which is slightly abnormal and he was transferred over to the [facility] emergency room and had a work up. His electrocardiogram showed some moderate ST depression aVL, lead I , his troponins were elevated the highest at 14.1. He was ruled in for a non- STEMI. He underwent cardiac catheterization today which showed a left main disease of 80% proximal LAD 50%. The mid and distal LAD 20%. The diagonal 70% . The circ was 10. The OM 20%. The RCA 95%. 2-D echo shoed Ef 40% ( grade 1 diastolic dysfunction) mild MR. mild TR. We were consulted to evaluate for coronary artery bypass grafting. PAST MEDICAL HISTORY: History of cerebrovascular accident 1 year ago with a minimal speech defect, very light left facial drooping, mild right weakness in his arm.( hx of Left CEA 2 years ago ) current carotid US shows 50-70% stenosis right ICA 120sec velocity Benign prostatic hypertrophy Hyperlipidemia Cervical spondylosis. Esophageal dysphasia Hearing loss. 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 CBC/BMP: 08/15/17 0540 08/15/17 0540 Significant Findings Laboratory Tests Test 08/13/17 04:55 08/14/17 05:30 08/15/17 05:40 Red Blood Count 3.04 MIL/MM3 (4.50-5.90) 3.13 MIL/MM3 (4.50-5.90) Hemoglobin 8.7 GM/DL (13.0-17.0) 8.9 GM/DL (13.0-17.0) Hematocrit 26.6 % (39.0-51.0) 27.5 % (39.0-51.0) Blood Urea Nitrogen 24 MG/DL (7-18) 26 MG/DL (7-18) 23 MG/DL (7-18) Calcium Level 8.2 MG/DL (8.5-10.1) 8.3 MG/DL (8.5-10.1) 8.4 MG/DL (8.5-10.1) Estimat Glomerular Filtration Rate 58 ML/MIN (>89) 55 ML/MIN (>89) 56 ML/MIN (>89) Random Glucose 160 MG/DL (74-106) 151 MG/DL (74-106) Neutrophils (%) (Auto) 72.6 % (16.0-70.0) Imaging Last Impressions Chest X-Ray 08/14/17 0800 Signed Impressions: Service Date/Time: July 09:29 - CONCLUSION: 1. Mild blunting of costophrenic angles most consistent with small effusions. 2. No focal consolidation or perihilar edema. Kyle Velasco MD Lower Extremity Ultrasound 08/05/17 0000 Signed Impressions: Service Date/Time: Saturday, August 05, 2017 16:25 - CONCLUSION: Bilateral venous mapping as above. Matteo Vega MD Carotid Artery Ultrasound 08/05/17 0000 Signed Impressions: Service Date/Time: Saturday, August 05, 2017 15:56 - CONCLUSION: 1. Abnormal hemodynamic profile in the right internal carotid artery suggesting 50-70%% stenosis. 2. Normal hemodynamic profile on the left side. Matteo Vega MD PE at Discharge GENERAL: A & O , SKIN: Warm and dry. incision intact and well approximated , incision intact to leg HEAD: Normocephalic. EYES: No scleral icterus. No injection or drainage. NECK: Supple, trachea midline. No JVD or lymphadenopathy. CARDIOVASCULAR: Regular rate and rhythm without murmurs, gallops, or rubs. RESPIRATORY: Breath sounds equal bilaterally. No accessory muscle use. GASTROINTESTINAL: Abdomen soft, non-tender, nondistended. MUSCULOSKELETAL: No cyanosis, or edema. BACK: Nontender without obvious deformity. No CVA tenderness. Hospital Course 08/06 remains on Heparin gtt, Dr Morris will discuss surgical options with pt today He will need f/u with Dr Soares as outpt for carotid stenosis , and resumed on plavix postop He remains pain free PFT pending 08/08 Procedure: 1. Urgent Off-pump Coronary Artery Bypass Grafting x 4 with Left Internal Mammary Artery (JUDD) to the Left Anterior Descending (LAD), reverse saphenous vein graft to the Obtuse Marginal 1 (OM1), reverse saphenous vein graft to the Posterior Descending Artery (RPDA), reverse saphenous vein graft to the Diagonal 1 (D1) 2. Left Leg Endoscopic Vein [place] 3. Intraoperative Vein Mapping 08/09 Reintubated right after extubation yesterday. Awake and alert this morning. Wean to extubate Wean Epi and Dobutamine as tolerated Greatly appreciate Dr. Snyder's assistance Maintain CT to drainage 08/10 Remains on Dobutamine and Epi. Nick off. Weaning as tolerated Wean O2 as tolerated OOB to chair Maintain in ICU 08/11 weaning off dobutamine, BP stable, chest tubes dc without difficulty on high flow 02 at 48% OOB, keep in ICU today 08/12 high flow increased last night, now down to 50% off dobutamine, BP stable gentle diuresis pulm toileting OOB, ambulate 08/13 now on 50% venti mask will transfer to stepdown unit continue PT/OT pulm toileting will need SNF placement gentle diuresis remains in NSR 08/14 eval for dc to rehab in am , wean 02 for sat >89% now on 3 liter nasal cannula remains in NSR pt has episode of bloody sputum, faint hematuria 08/14 no further bloody sputum stable for discharge remains in NSR plavix discontinued stable for transfer to SNF Pt Condition on Discharge: Good Discharge Disposition: Discharge to SNF Discharge Instructions DIET: Follow Instructions for: Heart Healthy Diet Speech Therapy-Diet Recommenda: Pureed Activities you can perform: Full Weight Bearing, Shower Only-No Bath Activities to avoid: Strenuous Activity, Driving Additional Activity Instructio: no lifting > 8 lbs or gallon of milk Follow up Referrals: Cardiology with Carlos Sue DO PCP Follow-up - 2 Weeks with [facility] - 2 Weeks with Azra Robertson V[facility] Surgery - 4 Weeks with Olvin Soares MD New Medications: Albuterol 18 GM Inh (Ventolin Hfa 18 GM Inh) 90 Mcg/Act Aer 2 PUFF INH Q4-6H PRN for SHORTNESS OF BREATH, #1 INHALER [address] (Aspirin EC) 81 Mg Tabdr 81 MG PO DAILY for Blood Clot Prevention, #30 TAB 0 Refills Amiodarone (Amiodarone) 200 Mg Tab 200 MG PO Q12HR for heart rhythm, #28 TAB 0 Refills for 2 weeks only, no refill Docusate Sodium (Dok) 100 Mg Cap 100 MG PO BID for Constipation, #60 CAP 0 Refills Ferrous Sulfate (Ferosul) 325 Mg (65 Mg Iron) Tablet 325 MG PO BID@12,17 for anemia , #60 TAB 0 Refills Hydrocodone/Acetaminophen (Hydrocodone-Acetamin 5-325 mg) 5 Mg-325 Mg Tablet 1 TAB PO Q6HR PRN for PAIN SCALE 6 TO 10, #30 TAB 0 Refills Metoprolol Tartrate (Metoprolol Tartrate) 25 Mg Tab 12.5 MG PO BID for Blood Pressure Management, #60 TAB 2 Refills Polyethylene Glycol 3350 Powder (Polyethylene Glycol 3350 Powder) 17 Gram Pow 17 GM PO DAILY for Constipation, #30 PACKET 0 Refills [Budeson-Formot 160-4.5 Mg Inh] () 60 PUFF AERO 2 PUFF INH Q12HR for copd, #1 1 Refill Continued Medications: Aluminum Hydroxide Liq Gel (Aluminum Hydroxide Liq Gel) 320 Mg/5 Ml Susp 640 MG PO Q4H PRN for INDIGESTION OR UPSET STOMACH, ML 0 Refills Take after meals and at bedtime. Maximum of 3,840 mg (60 ml)/24 hrs. Cholecalciferol (Vitamin D-3) 1,000 Unit Cap 1 CAP PO DAILY Ipratropium-Albuterol Inh (Combivent Respimat Inh) 20-100 Longterm/Act Aero 1 PUFF INH QID PRN for SHORTNESS OF BREATH, #1 INHALER 0 Refills Multiple Vitamin (Multiple Vitamin) 1 Tab 1 TAB PO DAILY for Nutritional Supplement, TAB 0 Refills Omeprazole (Omeprazole) 20 Mg Tab 20 MG PO BIDAC, #30 TAB 0 Refills Simvastatin (Simvastatin) 20 Mg Tab 20 MG PO DAILY for Cholesterol Management, #30 TAB 0 Refills Terazosin (Terazosin) 2 Mg Cap 2 MG PO HS, #30 CAP 0 Refills Discontinued Medications: Clopidogrel (Plavix) 75 Mg Tab 75 MG PO DAILY for Blood Clot Prevention, #30 TAB 0 Refills Hydrocodone/Acetaminophen ([place] 5-325 Tablet) 5 Mg-325 Mg Tablet 1 TAB PO Q6HR PRN for PAIN 1 TO 10 AND/OR AGITATION Tramadol (Tramadol) 50 Mg Tab 50 MG PO TID PRN for PAIN 1 TO 10 AND/OR AGITATION, TAB 0 Refills Azra Robertson Aug 15, 2017 13:21
== END 2017-08-15 13:58 | DRG 233 ==
LOC: NEPE 16:13 → NEDA 18:26 → NEPFCDU 19:27 → OBSVTOIN 22:09 → HCIS 08-05 01:17 → HCPC 08-06 12:22 → HCVI 08-08 12:25 → HCPC 08-13 14:30
PROVIDERS: ADMIT Thoracic Surgery (Cardiothoracic Vascular Surgery); ATTEND Thoracic Surgery (Cardiothoracic Vascular Surgery)
PROC: B2111ZZ Fluoroscopy of Multiple Coronary Arteries using Low Osmolar Contrast (ICD-10-PCS; 2017-08-05)
PROC: 4A023N7 Measurement of Cardiac Sampling and Pressure, Left Heart, Percutaneous Approach (ICD-10-PCS; principal; 2017-08-05 12:15)
PROC: 5A1935Z Respiratory Ventilation, Less than 24 Consecutive Hours (ICD-10-PCS; 2017-08-08)
PROC: 06BQ4ZZ Excision of Left Saphenous Vein, Percutaneous Endoscopic Approach (ICD-10-PCS; 2017-08-08)
PROC: 021209W Bypass Coronary Artery, Three Arteries from Aorta with Autologous Venous Tissue, Open Approach (ICD-10-PCS; 2017-08-08)
PROC: 5A1935Z Respiratory Ventilation, Less than 24 Consecutive Hours (ICD-10-PCS; 2017-08-08)
PROC: 0BH17EZ Insertion of Endotracheal Airway into Trachea, Via Natural or Artificial Opening (ICD-10-PCS; 2017-08-08)
PROC: 5A12012 Performance of Cardiac Output, Single, Manual (ICD-10-PCS; 2017-08-08)
PROC: 02100Z9 Bypass Coronary Artery, One Artery from Left Internal Mammary, Open Approach (ICD-10-PCS; 2017-08-08 07:05)
DX: I21.4 Non-ST elevation (NSTEMI) myocardial infarction (principal); J96.01 Acute respiratory failure with hypoxia; I47.2 Ventricular tachycardia; J44.9 Chronic obstructive pulmonary disease, unspecified; I48.91 Unspecified atrial fibrillation; I50.30 Unspecified diastolic (congestive) heart failure; I13.0 Hypertensive heart and chronic kidney disease with heart failure and stage 1 through stage 4 chronic kidney disease, or unspecified chronic kidney disease; R00.1 Bradycardia, unspecified; M41.9 Scoliosis, unspecified; E83.51 Hypocalcemia; R13.10 Dysphagia, unspecified; I65.21 Occlusion and stenosis of right carotid artery; I25.119 Atherosclerotic heart disease of native coronary artery with unspecified angina pectoris; K44.9 Diaphragmatic hernia without obstruction or gangrene; N18.9 Chronic kidney disease, unspecified; N40.0 Benign prostatic hyperplasia without lower urinary tract symptoms; K21.9 Gastro-esophageal reflux disease without esophagitis; H91.90 Unspecified hearing loss, unspecified ear; M19.90 Unspecified osteoarthritis, unspecified site; Z79.01 Long term (current) use of anticoagulants; E78.5 Hyperlipidemia, unspecified; Z80.0 Family history of malignant neoplasm of digestive organs; Z87.891 Personal history of nicotine dependence; I69.392 Facial weakness following cerebral infarction; I69.341 Monoplegia of lower limb following cerebral infarction affecting right dominant side; R73.9 Hyperglycemia, unspecified; R31.9 Hematuria, unspecified; D50.0 Iron deficiency anemia secondary to blood loss (chronic)
CPT/HCPCS: 31500; 36430; 71010; 71020; 76937; 80048; 80053; 81001; 82550; 82552; 82805; 82948; 83036; 83690; 83735; 83880; 84100; 84484; 85025; 85027; 85576; 85610; 85730; 86850; 86900; 86901; 86920; 87641; 93005; 93306; 93458; 93880; 93970; 93998; 94002; 94003; 94010; 94150; 94640; 94664; 94667; 94668; 99152; C1768; C1769; C1893; C8924; J0131; J0153; J0171; J0282; J0690; J1250; J1265; J1644; J1815; J1817; J1940; J2001; J2250; J2370; J2405; J2440; J2930; J3010; J3370; J3475; J3480; J7060; J7120; P9016; P9045; Q9967

== ENCOUNTER 2017-12-03 09:01 | Day surgery (SDC) | payer MEDICARE, OTHER ==
[~2017-12-03] VITALS: Ht 167.6 cm; Wt 83.9 kg
[~2017-12-03 09:01] MED LIST changes: +ALUM320S2 PO; -ALUM320S3 PO; +AMIO200T PO; +ASPI81TA23 PO; +Budeson-Formot 160-4.5 Mg Inh INH; -CHOL1CAP6 PO; +D31000CA3 PO; +DOCU1CAP39 PO; +FERR325T20 PO; +HYDR-3516 PO; -LORTA5 PO; +METO25TA3 PO; +MULTTAB67 PO; -OMEP20TA39 PO; +OMEP20TA93 PO; -PLAV75TA PO; +POLY17S PO; -SIMV20 PO; +SIMV20TA PO; -TAB-TAB PO; -TRAM50TA PO; +VENTAER INH
[2017-12-03] MEDS ORDERED: IOHEXOL 350 MG/ML 100 ML BTL (for Cath Lab) OTHER ONE (09:02)
[2017-12-03] MEDS ORDERED: PLAV75TA29 PO (09:55)
[2017-12-03 09:57] VITALS: BP 98/70; PULSE 64; RESP 18; TEMP 97.8; O2SAT 97
[2017-12-03 10:00] LABS: AUTOMATED NEUTROPHIL # 3.8 TH/MM3 (1.8-7.7); BASOPHIL % 0.4 % (0.0-2.0); EOSINOPHIL # 0.1 TH/MM3 (0-0.4); EOSINOPHIL % 1.6 % (0.0-4.0); HEMATOCRIT 34.1 % (39.0-51.0); HEMOGLOBIN 11.1 GM/DL (13.0-17.0); LYMPH % 40.4 % (9.0-44.0); LYMPHOCYTE # 2.9 TH/MM3 (1.0-4.8); MEAN CORPUSCULAR HEMOGLOBIN 25.1 PG (27.0-34.0); MEAN CORPUSCULAR HGB CONC 32.6 % (32.0-36.0); MEAN PLATELET VOLUME 7.3 FL (7.0-11.0); MONO % 5.2 % (0.0-8.0); MONOCYTE # 0.4 TH/MM3 (0-0.9); NEUT % 52.4 % (16.0-70.0); PLATELET COUNT 279 TH/MM3 (150-450); RED BLOOD COUNT 4.43 MIL/MM3 (4.50-5.90); RED CELL DISTRIBUTION WIDTH 18.2 % (11.6-17.2); WHITE BLOOD COUNT 7.3 TH/MM3 (4.0-11.0)
[2017-12-03 10:18] LABS: BICARBONATE 24.5 MEQ/L (21.0-32.0); CALCIUM 8.9 MG/DL (8.5-10.1); CREATININE 1.39 MG/DL (0.60-1.30)
[2017-12-03] MEDS ORDERED: MIDAZOLAM HCL 2 MG/2 ML VIAL ONE (13:14)
[2017-12-03] MEDS ORDERED: hydrALAZINE HCL 20 MG/ML VIAL ONE (14:00)
--- NOTE | 2017-12-03 14:17 | CATHPROC ---
[employer] HIS Report Study Information Study Number Admission Scheduled Start Study Start [id number] Dec 03 2017 9:01AM 12/03/2017 Dec 03 2017 1:01PM [place] Service Cath Endovascular Study Admit Source Facility Department Other [facility] Physician and Clinical Staff Initial Carlos Wynn Senior ManagerTaylor Daley RN Senior ManagerNikolay BartholomewRN Recorder Ronnell BELLE, Gen [place],RT(R) Procedures Performed Procedure Location (Site) Vessel Name Wire insertion Fem Art (right) Femoral Art Equipment Time Component Inspector Description Size Mfg Part Number Used/Scraped [id number] 13:23 ANGIO-DYNAM[employer] OMNI FLUSH 65CM CATHETER FR 5 Used *[id number] WIRE, HYDROSTEER 260CM [id number] 13:15 DAIG/[employer] 260CM Used ANGLED GLIDE *[id number] 13:03 MALLINCKRODT SYRINGE, ANGIOMAT 150ML 150ML [id number] Used [id number] 13:03 [employer] PACK, CCL CUSTOM * Used *[id number] 13:03 [employer] PACER PEN, SKIN DUAL W/ RULER * Used *[id number] 13:03 NAMIC MANIFOLD, 4 PORT * Used *[id number] 13:03 NAMIC TUBING, HIGH PRESSURE 48" 48" Used *[id number] 13:17 NAMIC TUBING, HIGH PRESSURE 48" 48" Used *[id number] 13:03 [employer]COMED OMNIPAQUE, 300 MG, 150ML 150ML [id number] Used [id number] 13:03 [employer] BLANKET,WARM AIR CCL * Used *[id number] 13:03 TERUMO MEDICAL SHEATH, FR5 TERUMO (10CM) FR 5 Used *[id number] Labs Hgb (g/dl) Hct (%) WBC (l/cumm) Platelets (thousands) 11.60-17.00 35.00-51.00 4.00-11.00 150.00-450.00 11.1 34.1 7.3 279 Glucose (mg/dl) BUN (mg/dl) Creatinine (mg/dl) BUN:Creatinine (1:x) 74.00-106.00 7.00-18.00 0.50-1.30 10.00-20.00 98 14 1.4 10 Na (meq/l) K (meq/l) 136.00-145.00 3.50-5.10 144 3.9 CPK-MB (ng/ML) 0.50-3.60 Not Drawn Medication Medication Total Dose (Bolus/Oral) Medication Total Dosage/Unit 1% XYLOCAINE 20 mL FENTANYL 50 mcg HYDRALAZINE 10 mg VERSED 0.5 mg Medications (Bolus/Oral) Medication Time Given Dosage/Unit Administered By Reason VERSED 12/03/2017 1:26:20 PM 0.5 mg Carrie, Nikolay 0.5 mg VERSED given in lab by Nikolay Butler RN via Peripheral IV. Ordered by Carlos Sue FENTANYL 12/03/2017 1:27:01 PM 25 mcg Carrie, Nikolay 25 mcg FENTANYL given in lab by Nikolay Butler RN via Peripheral IV. Ordered by Carlos Sue. 1% XYLOCAINE 12/03/2017 1:28:21 PM 20 mL Carlos Sue 20 mL 1% XYLOCAINE given in lab by Carlos Sue in Right Groin via Subcutaneous. Ordered by Carlos Appiah FENTANYL 12/03/2017 1:57:57 PM 25 mcg Carrie, Nikolay 25 mcg FENTANYL given in lab by Nikolay Butler RN via Peripheral IV. Ordered by Carlos Sue HYDRALAZINE 12/03/2017 2:01:34 PM 10 mg Carrie, Nikolay 10 mg HYDRALAZINE given in lab by Nikolay Butler RN via Peripheral IV. Ordered by Carlos Sue Initial Case Assessment Cardiovascular HR NIBP 69 178/94 Edema Present Skin color Skin None Normal Warm Dry Circulatory - Right Pulses Dorsalis Pedis Femoral 2 2 Scale (0,1,2,3,4,d) Circulatory - Left Pulses Dorsalis Pedis Femoral 2 2 Scale (0,1,2,3,4,d) Neurological State Oriented to time-place- Alert Moves all extremities person Respiration - General SpO2 (%) 95 Final Case Assessment Cardiovascular HR NIBP 62 141/84 Edema Present Skin color Skin None Normal Warm Dry Circulatory - Right Pulses Dorsalis Pedis 1 Scale (0,1,2,3,4,d) Circulatory - Left Pulses Dorsalis Pedis 1 Scale (0,1,2,3,4,d) Neurological State Oriented to time-place- Alert Moves all extremities person Respiration - General Respiration Rate SpO2 (%) (B/min) 16 95 Chronological Log Time Study Chronological Log 12:54:10 Patient arrived via Bed. 12:54:59 Consent signed by the physician and the patient and verified by the [facility] staff. 12:55:25 History and physical on the chart or being dictated. 12:55:29 Patient Name, D.O.B, / Armband Verified By R.N. 12:59:32 Skin Breakdown- none reported by pt 13:00:34 A # 20 IV was noted in the Forearm (left). Grade = 0 Vitals capture started with the following parameters, Patient=Adult, Interval=5 min, Initial Pr ofciox=397 mmHg, 13:01:16 Deflation Rate=5 mmHg, Cuff placed on Right Ankle Assessment: Initial Case, HR=69 BPM, LJDK=932/94 mmhg, Edema=None, Color=Normal, Skin = Warm, D ry Right Pulses: Celso Ped=2, Femoral=2 13:01:33 Left Pulses: Celso Ped=2, Femoral=2 Neurological: State=Alert, Ox3, ADAM Respiration: SpO2=95 % 13:02:22 Trey Prominences Protected 13:02:30 HR=69 bpm, XUFK=178/94 mmhg, SpO2=97.0 %, Resp=19 B/min, Pain=0, Chelsi=10, Yost=2 13:04:10 Patient Warmer Placed on the Table. 13:07:03 HR=58 bpm, OROI=838/85 mmhg, SpO2=97.0 %, Resp=19 B/min, Pain=0, Yost=2 13:12:40 HR=61 bpm, RRHT=226/89 mmhg, SpO2=98.0 %, Resp=14 B/min, Pain=0, Yost=2 13:15:08 Patient has been NPO for More than 6Hrs. 13:15:17 Bilateral groins prepped with 2% chlorhexidine, and draped after a 3 minute waiting time. 13:17:03 HR=57 bpm, MFSA=687/92 mmhg, SpO2=95.0 %, Resp=20 B/min, Pain=0, Yost=2 13:17:09 Pressure channel 1 zeroed. 13:20:06 MD paged 13:20:29 MD arrived. 13:22:04 HR=57 bpm, YVNJ=725/86 mmhg, SpO2=98.0 %, Resp=15 B/min, Pain=0, Yost=2 13:26:20 0.5 mg VERSED given in lab by Nikolay Butler, RN via Peripheral IV. Ordered by Armand Sue Time Out. Correct patient, correct procedure, correct physician, power injector loaded, or not loaded with contrast with 13:26:51 surgical team present. Time Out Concurred by MD and individual staff in procedure. 13:27:01 HR=59 bpm, WMLE=229/94 mmhg, SpO2=97.0 %, Resp=15 B/min, Pain=0, Yost=2 13:27:01 25 mcg FENTANYL given in lab by Nikolay Butler, RN via Peripheral IV. Ordered by Tana Sue 13:27:02 Case Start 20 mL 1% XYLOCAINE given in lab by Carlos Sue in Right Groin via Subcutaneous. Ordered by Vikram 13:28:21 Carlos Olson 13:32:02 HR=59 bpm, YWWX=050/85 mmhg, SpO2=95.0 %, Resp=16 B/min, Pain=0, Ysot=2 13:36:43 Access site was Right Femoral Artery. 13:37:01 HR=56 bpm, YOTB=888/93 mmhg, SpO2=96.0 %, Resp=16 B/min, Pain=0, Yost=2 13:37:57 A SHEATH, FR5 TERUMO (10CM) FR 5 was advanced into the Fem Art (right) using the Modified S eldinger technique. Recorded Pressure: Ao, HR=59, Condition=Condition 1 13:38:38 (Aorta) Ao 149/78/107 13:39:29 Through a sheath, The Femoral Run-off was injected with 5 cc's per second. 13:40:34 Through a sheath, The Femoral Run-off was injected with 5 cc's per second. 13:41:36 Through a sheath, The Femoral Run-off was injected with 5 cc's per second. 13:42:00 HR=60 bpm, LYKJ=504/94 mmhg, SpO2=95.0 %, Resp=18 B/min, Pain=0, Yost=2 13:42:06 Through a sheath, The Iliac R. Com. (R4) was injected with 5 cc's of contrast. 13:42:48 A WIRE, HYDROSTEER 260CM ANGLED GLIDE 260CM was inserted via Fem Art (right). 13:43:03 A OMNI FLUSH 65CM CATHETER FR 5 was advanced over a wire. 13:47:38 HR=60 bpm, JWOC=566/87 mmhg, SpO2=96.0 %, Resp=17 B/min, Pain=0, Yost=2 13:48:03 Wire removed 13:49:30 Through a OMNI FLUSH 65CM CATHETER FR 5, The Femoral Run-off was injected with 5 cc's per s econd. 13:50:31 Through a OMNI FLUSH 65CM CATHETER FR 5, The Femoral Run-off was injected with 5 cc's per s econd. 13:51:11 Through a OMNI FLUSH 65CM CATHETER FR 5, The Femoral Run-off was injected with 5 cc's per s econd. 13:52:06 HR=63 bpm, VKZT=672/97 mmhg, SpO2=96.0 %, Resp=18 B/min, Pain=0, Yost=2 Recorded Pressure: AoP, HR=61, Condition=Condition 1 13:53:57 (AO post) AoP 158/77/111 13:55:25 Through a OMNI FLUSH 65CM CATHETER FR 5, The Iliac L. Com. (L4) was injected with 5 cc's of contrast. 13:56:04 Catheter was removed 13:56:09 An injection in the Fem Art (right) was made through the SHEATH, FR5 TERUMO (10CM) FR 5. 13:56:41 Case End 13:57:03 HR=71 bpm, ZYJB=814/93 mmhg, SpO2=96.0 %, Resp=17 B/min, Pain=0, Yost=2 13:57:57 25 mcg FENTANYL given in lab by Nikolay Butler RN via Peripheral IV. Ordered by Tana Sue 13:59:17 NIBP STAT measurement started. 14:00:01 HR=54 bpm, QRAC=510/91 mmhg, SpO2=97.0 %, Resp=19 B/min, Pain=0, Yost=2 14:01:16 Sheath removed; pressure applied to access site. 14:01:34 10 mg HYDRALAZINE given in lab by Nikolya Butler, RN via Peripheral IV. Ordered by Carlos Sue 14:02:02 HR=60 bpm, TLXN=156/92 mmhg, SpO2=97.0 %, Resp=16 B/min, Pain=0, Yost=2 14:07:07 HR=60 bpm, MPVN=153/80 mmhg, SpO2=97.0 %, Resp=13 B/min 14:09:21 DOCU called. Spoke to Lynnette BELLE 14:11:55 No case complications noted. 14:11:57 Sterile dressing applied to site 14:11:58 HR=66 bpm, WHIB=514/84 mmhg, SpO2=95.0 %, Resp=11 B/min, Pain=0, Yost=2 14:12:01 Bedside Report will be given. 14:13:47 Vitals capture stopped. Assessment: Final Case, HR=62 BPM, LNCA=021/84 mmhg, Edema=None, Color=Normal, Skin = Warm, Dr y Right Pulses: Celso Ped=1 14:14:07 Left Pulses: Celso Ped=1 Neurological: State=Alert, Ox3, ADAM Respiration: Resp=16 B/min, SpO2=95 % 14:14:59 [facility] Study - Contrast Media Used In Study Contrast Total Opened (mL) Total Used (mL) Total Wasted (mL) Omnipaque 150 60 90 End Study - Maximum Contrast Load Max Contrast Load (mL) 306.8 End Study - Radiation Exposure Fluoro Time (minutes) 6.2 End Study - Patient Disposition Complications Transferred To Interventional Outcome No [facility] No attempt made
[2017-12-03] MEDS ORDERED: SODIUM CHLOR 0.9% 1000 ML INJ 1,000 ML IV SCH (14:20)
[2017-12-03] MEDS ORDERED: MISC INFORMATION XX ONE (14:30)
[2017-12-03] MEDS ORDERED: PANTOPRAZOLE SOD 20 MG DELAYED RELEASE TAB PO SCH (16:00)
[2017-12-03 20:00] VITALS: BP 149/87; PULSE 57; RESP 18; TEMP 97.5; O2SAT 98
[2017-12-03] MEDS ORDERED: TERAZOSIN HCL 1 MG CAP PO SCH (21:00)
[2017-12-04] VITALS: BP 125/61; PULSE 76; RESP 18; TEMP 97.5; O2SAT 96
[2017-12-04 04:00] VITALS: BP 120/63; PULSE 74; RESP 18; TEMP 97.3; O2SAT 94
[2017-12-04 08:00] VITALS: BP 105/60; PULSE 66; RESP 20; TEMP 96; O2SAT 92
[2017-12-04] MEDS ORDERED: CLOPIDOGREL 75 MG TAB PO SCH (09:00)
[2017-12-04] MEDS ORDERED: MULTIVITAMIN TAB PO SCH (09:00)
[2017-12-04] MEDS ORDERED: ASPIRIN EC 81 MG TABEC PO SCH (09:00)
[2017-12-04] MEDS ORDERED: PRAVASTATIN SOD 40 MG TAB PO SCH (09:00)
[2017-12-04 09:59] LABS: BASOPHIL % 0.3 % (0.0-2.0); EOSINOPHIL # 0.1 TH/MM3 (0-0.4); EOSINOPHIL % 1.5 % (0.0-4.0); HEMATOCRIT 33.7 % (39.0-51.0); HEMOGLOBIN 10.8 GM/DL (13.0-17.0); LYMPH % 36.5 % (9.0-44.0); LYMPHOCYTE # 2.6 TH/MM3 (1.0-4.8); MEAN CELL VOLUME 77.2 FL (80.0-100.0); MEAN CORPUSCULAR HEMOGLOBIN 24.7 PG (27.0-34.0); MONOCYTE # 0.4 TH/MM3 (0-0.9); NEUT % 55.7 % (16.0-70.0); PLATELET COUNT 277 TH/MM3 (150-450); RED BLOOD COUNT 4.36 MIL/MM3 (4.50-5.90); RED CELL DISTRIBUTION WIDTH 18.3 % (11.6-17.2); WHITE BLOOD COUNT 7.2 TH/MM3 (4.0-11.0)
[2017-12-04 10:22] LABS: BICARBONATE 21.3 MEQ/L (21.0-32.0); CALCIUM 8.9 MG/DL (8.5-10.1); CREATININE 1.41 MG/DL (0.60-1.30)
--- NOTE | 2017-12-04 12:46 | PD.CARD.PN ---
Subjective Subjective Remarks No events overnight No complaints Objective Medications Current Medications Medications (Trade) Dose Ordered Sig/Vince Route Start Time Stop Time Status Last Admin (Ecotrin Ec) 81 mg DAILY PO 12/04/17 09:00 12/04/17 08:18 (Plavix) 75 mg DAILY PO 12/04/17 09:00 12/04/17 08:18 (Hytrin) 2 mg HS PO 12/03/17 21:00 12/03/17 22:15 (Theragran) 1 tab DAILY PO 12/04/17 09:00 12/04/17 08:18 (Protonix) 20 mg BIDAC PO 12/03/17 16:00 12/04/17 06:03 (Pravachol) 40 mg DAILY PO 12/04/17 09:00 12/04/17 08:18 Vital Signs / I&O Vital Signs Date Time Temp Pulse Resp B/P (MAP) Pulse Ox O2 Delivery O2 Flow Rate FiO2 12/04/17 11:24 Room Air 12/04/17 08:00 96.0 66 20 105/60 (75) 92 12/04/17 04:00 Room Air 12/04/17 04:00 97.3 74 18 120/63 (82) 94 12/04/17 00:00 97.5 76 18 125/61 (82) 96 12/04/17 00:00 Room Air 12/03/17 20:00 Room Air 12/03/17 20:00 97.5 57 18 149/87 (107) 98 I/O 12/03/17 12/03/17 12/03/17 12/04/17 12/04/17 12/04/17 07:00 15:00 23:00 07:00 15:00 23:00 Intake Total 50 ml Output Total 400 ml Balance 50 ml -400 ml Intake IV Total 50 ml Output Urine Total 400 ml Physical Exam GENERAL: NAD, AAOx3 SKIN: Warm and dry. HEAD: Atraumatic. Normocephalic. EYES: Pupils equal and round. No scleral icterus. No injection or drainage. ENT: No nasal bleeding or discharge. Mucous membranes pink and moist. NECK: Trachea midline. No JVD. CARDIOVASCULAR: Regular rate and rhythm. RESPIRATORY: No accessory muscle use. Clear to auscultation. Breath sounds equal bilaterally. GASTROINTESTINAL: Abdomen soft, non-tender, nondistended. Hepatic and splenic margins not palpable. MUSCULOSKELETAL: Extremities without clubbing, cyanosis, or edema. No obvious deformities. Right femoral no hematoma, neurovascularly intact distally NEUROLOGICAL: Awake and alert. No obvious cranial nerve deficits. Motor grossly within normal limits. Five out of 5 muscle strength in the arms and legs. Normal speech. PSYCHIATRIC: Appropriate mood and affect; insight and judgment normal. Laboratory Laboratory Tests Test 12/04/17 07:55 White Blood Count 7.2 TH/MM3 Red Blood Count 4.36 MIL/MM3 Hemoglobin 10.8 GM/DL Hematocrit 33.7 % Mean Corpuscular Volume 77.2 FL Mean Corpuscular Hemoglobin 24.7 PG Mean Corpuscular Hemoglobin Concent 32.0 % Red Cell Distribution Width 18.3 % Platelet Count 277 TH/MM3 Mean Platelet Volume 8.0 FL Neutrophils (%) (Auto) 55.7 % Lymphocytes (%) (Auto) 36.5 % Monocytes (%) (Auto) 6.0 % Eosinophils (%) (Auto) 1.5 % Basophils (%) (Auto) 0.3 % Neutrophils # (Auto) 4.0 TH/MM3 Lymphocytes # (Auto) 2.6 TH/MM3 Monocytes # (Auto) 0.4 TH/MM3 Eosinophils # (Auto) 0.1 TH/MM3 Basophils # (Auto) 0.0 TH/MM3 CBC Comment DIFF FINAL Differential Comment Blood Urea Nitrogen 24 MG/DL Creatinine 1.41 MG/DL Random Glucose 93 MG/DL Calcium Level 8.9 MG/DL Sodium Level 141 MEQ/L Potassium Level 4.0 MEQ/L Chloride Level 109 MEQ/L Carbon Dioxide Level 21.3 MEQ/L Anion Gap 11 MEQ/L Estimat Glomerular Filtration Rate 48 ML/MIN Assessment and Plan Problem List: (1) PAD (peripheral artery disease) ICD Codes: I73.9 - Peripheral vascular disease, unspecified (2) S/P CABG x 4 ICD Codes: Z95.1 - Presence of aortocoronary bypass graft (3) History of CVA (cerebrovascular accident) ICD Codes: Z86.73 - Personal history of transient ischemic attack (TIA), and cerebral infarction without residual deficits (4) Chronic kidney disease ICD Codes: N18.9 - Chronic kidney disease, unspecified (5) Hyperlipemia ICD Codes: E78.5 - Hyperlipidemia, unspecified (6) Diastolic congestive heart failure, NYHA class 1 ICD Codes: I50.30 - Unspecified diastolic (congestive) heart failure (7) Carotid stenosis, right ICD Codes: I65.21 - Occlusion and stenosis of right carotid artery (8) Coronary artery disease ICD Codes: I25.10 - Atherosclerotic heart disease of minto coronary artery without angina pectoris Assessment and Plan 1) Mild to moderate PAD Con't medical management 2) Cardiovascularly stable for discharge Carlos Sue DO Dec 04, 2017 12:46
== END 2017-12-04 13:10 | disposition home or self-care (01) ==
LOC: HDOC 09:01 → HDIC 09:01 → N04B 19:20 → HDOC 12-04 13:10
PROVIDERS: ATTEND Nuclear Medicine Nuclear Cardiology
DX: I73.9 Peripheral vascular disease, unspecified (principal); I65.21 Occlusion and stenosis of right carotid artery; I25.10 Atherosclerotic heart disease of native coronary artery without angina pectoris; I50.30 Unspecified diastolic (congestive) heart failure; N18.9 Chronic kidney disease, unspecified; E78.5 Hyperlipidemia, unspecified; Z86.73 Personal history of transient ischemic attack (TIA), and cerebral infarction without residual deficits; Z79.82 Long term (current) use of aspirin; Z95.1 Presence of aortocoronary bypass graft
CPT/HCPCS: 36246; 75716; 80048; 85025; 99152; 99153; C1769; C1893; J0360; J2250; J3010; J7030; Q9967

== ENCOUNTER 2017-12-06 10:24 | Emergency (ER) | payer MEDICARE, OTHER ==
[~2017-12-06] VITALS: Ht 167.6 cm; Wt 85.0 kg
[~2017-12-06 10:24] MED LIST changes: -ALUM320S2 PO; -AMIO200T PO; -Budeson-Formot 160-4.5 Mg Inh INH; -D31000CA3 PO; -DOCU1CAP39 PO; -FERR325T20 PO; -HYDR-3516 PO; -IPRAAER INH; -METO25TA3 PO; +PLAV75TA29 PO; -POLY17S PO; -VENTAER INH
[2017-12-06 10:38] VITALS: BP 99/57; PULSE 96; RESP 17; TEMP 97.3; O2SAT 96
--- NOTE | 2017-12-06 11:12 | PD ---
HPI Chief Complaint: Musculoskeletal Complaint Time Seen by Provider: 11:11 Travel History International Travel<30 days: No Contact w/Intl Traveler<30days: No Traveled to known affect area: No History of Present Illness HPI 82-year-old male presents emergency department for evaluation of neck pain. Patient states that since being hospitalized he has had a stiff neck. He tells me that it is mostly on the sides and radiates into his shoulders. This is bilaterally. Denies any injury. States that he gets stiff necks occasionally and needs medication to help them relax. He tells me specifically muscle relaxants. Denies any chest pain or tightness. No difficulty breathing. No focal deficits or weakness. No fever or chills. He has no other symptoms to report. PFSH Past Medical History Hx Anticoagulant Therapy: Yes Arthritis: Yes (2013) Blood Disorders: No Heart Rhythm Problems: Yes Cancer: No Cardiac Catheterization: No Cardiovascular Problems: Yes (cad, cabg) High Cholesterol: Yes Congestive Heart Failure: No Cerebrovascular Accident: Yes (2015) Coronary Artery Disease: Yes Diabetes: No Diminished Hearing: Yes (Hard of hearing) Endocrine: No Gastrointestinal Disorders: Yes (GERD) GERD: Yes Genitourinary: Yes (BPH) Hiatal Hernia: Yes Hypertension: Yes Immune Disorder: No Musculoskeletal: Yes Neurologic: Yes (CVA 1.5 years ago ) Psychiatric: No Reproductive: No Respiratory: Yes (copd) Triglycerides - High: Yes Past Surgical History Coronary Artery Bypass Graft: No Tonsillectomy: Yes Other Surgery: Yes (Hemmorhoidectomy) Social History Alcohol Use: No Tobacco Use: Yes (0.5 ppd) Substance Use: No Allergies-Medications (Allergen,Severity, Reaction): Coded Allergies: wheat (Unverified Allergy, Intermediate, Rash, 12/06/17) Reported Meds & Prescriptions Reported Meds & Active Scripts Active Robaxin (Methocarbamol) 500 Mg Tab 500 Mg PO TID PRN Aspirin EC (Aspirin) 81 Mg Tabdr 81 Mg PO DAILY Reported Plavix (Clopidogrel Bisulfate) 75 Mg Tab 75 Mg PO DAILY Multiple Vitamin 1 Tab 1 Tab PO DAILY Omeprazole 20 Mg Tab 20 Mg PO BIDAC Terazosin (Terazosin HCl) 2 Mg Cap 2 Mg PO HS Simvastatin 20 Mg Tab 20 Mg PO DAILY Review of Systems Except as stated in HPI: all other systems reviewed are Neg Physical Exam Narrative GENERAL: Well-nourished, well-developed elderly male patient, ambulatory with a non-ataxic gait no acute distress. SKIN: Focused skin assessment warm/dry. HEAD: Normocephalic. EYES: No scleral icterus. No injection or drainage. NECK: Supple, trachea midline. No JVD or lymphadenopathy. No cervical spine tenderness. No limitations in range of motion of cervical spine. Tenderness elicited to palpation along the trapezius musculature bilaterally. CARDIOVASCULAR: Regular rate and rhythm without murmurs, gallops, or rubs. RESPIRATORY: Breath sounds equal bilaterally. No accessory muscle use. GASTROINTESTINAL: Abdomen soft, non-tender, nondistended. MUSCULOSKELETAL: No cyanosis, or edema. 5+ strength equal bilateral extremities. Equal water resource engineering specialist strength bilaterally. BACK: Nontender without obvious deformity. No CVA tenderness. Data Data Last Documented VS Vital Signs Date Time Temp Pulse Resp B/P (MAP) Pulse Ox O2 Delivery O2 Flow Rate FiO2 12/06/17 11:40 97.8 68 16 110/77 (88) 99 Orders Orders Orphenadrine Inj (Norflex Inj) (12/06/17 11:15) Ketorolac Inj (Toradol Inj) (12/06/17 11:15) Ed Discharge Order (12/06/17 11:15) [facility] Medical Decision Making Medical Screen Exam Complete: Yes Emergency Medical Condition: Yes Medical Record Reviewed: Yes Differential Diagnosis Muscle strain versus spasm versus discogenic pain versus radiculopathy Narrative Course Patient along the trapezius musculature bilaterally. He has no focal deficits or weakness. No spinal tenderness. He is provided pain control for this and muscle relaxant. Upon reassessment he verbalizes improvement in his symptoms. He will be discharged home with additional prescription for muscle relaxant and advised to follow-up with a primary care provider. He agrees to return immediately with any acute worsening symptoms. Diagnosis Primary Impression: Neck muscle spasm Referrals: Primary Care Physician Patient Instructions: General Instructions, Muscle Spasm (ED) Additional Instructions: Warm heat and light massage Follow-up with a primary care provider Return immediately with acute worsening symptoms Med/Other Pt SpecificInfo: Prescription(s) given Scripts Methocarbamol (Robaxin) 500 Mg Tab 500 MG PO TID Y for MUSCLE SPASM, #20 TAB 0 Refills Prov: Halle Jackson 12/06/17 Disposition: 01 DISCHARGE HOME Condition: Stable Halle Jackson Dec 06, 2017 11:12
[2017-12-06] MEDS ORDERED: KETOROLAC TROMETHAMINE 60 MG/2 ML (IM) VIAL IM ONE (11:15)
[2017-12-06] MEDS ORDERED: ORPHENADRINE INJ 60 MG/2 ML AMP IM ONE (11:15)
[2017-12-06] MEDS ORDERED: ROBA500T PO (11:18)
[2017-12-06 11:31] VITALS: BP 110/77; TEMP 97.8
[2017-12-06 11:40] VITALS: BP 110/77; TEMP 97.8
== END 2017-12-06 11:40 | disposition home or self-care (01) ==
LOC: NEPD 10:24
DX: M62.838 Other muscle spasm (principal); I10 Essential (primary) hypertension; I25.10 Atherosclerotic heart disease of native coronary artery without angina pectoris; E78.2 Mixed hyperlipidemia; J44.9 Chronic obstructive pulmonary disease, unspecified; N40.0 Benign prostatic hyperplasia without lower urinary tract symptoms; F17.210 Nicotine dependence, cigarettes, uncomplicated; Z86.73 Personal history of transient ischemic attack (TIA), and cerebral infarction without residual deficits; Z79.899 Other long term (current) drug therapy
CPT/HCPCS: 96372; 99283; J1885; J2360

== ENCOUNTER 2017-12-22 10:58 | Emergency (ER) | payer OTHER, MEDICARE ==
[~2017-12-22] VITALS: Ht 167.6 cm; Wt 84.5 kg
[~2017-12-22 10:58] MED LIST changes: +ROBA500T PO
[2017-12-22 11:27] VITALS: BP 140/65; PULSE 71; RESP 20; TEMP 97.8; O2SAT 99
--- NOTE | 2017-12-22 12:26 | RADRPT ---
EXAM DATE/TIME: 12/22/2017 11:52 [place] COMPARISON: No previous studies available for comparison. INDICATIONS : Left ankle pain, no injury. MEDICAL HISTORY : Arthritis. SURGICAL HISTORY : CABG. ENCOUNTER: Initial ACUITY: 2 days PAIN SCORE: 10/10 LOCATION: Left lateral ankle FINDINGS: Bones are osteopenic. There is generalized soft tissue swelling. Radiopaque foreign body is seen in the plantar fascia. Fracture is not appreciated. CONCLUSION: Soft tissue swelling. No fracture. Radiopaque foreign body as above thought to be the small piece o f wire Tay Bah MD FACR on December 22, 2017 at 12:22 Board Certified Radiologist. This report was verified electronically.
--- NOTE | 2017-12-22 13:09 | PD ---
HPI Chief Complaint: Pain: Acute or Chronic Time Seen by Provider: 13:09 Travel History International Travel<30 days: No Contact w/Intl Traveler<30days: No Traveled to known affect area: No History of Present Illness HPI 82-year-old male came to the emergency room with history of left ankle pain. Patient says this pain has been going on for past 3-4 days. Patient does not recall injuring his ankle. He has never had this kind of pain before. He says about a month or 2 months ago his [place] doctor gave him prescription for allopurinol and told him he can take it as needed. Patient says he was never tested for gout but he was told that he may have gout. However at that time he did not have any joint swellings. Vital signs are stable. No history of fever or chills. Pain is worse when he tries to walk on that foot. PFSH Past Medical History Narrative Medical List of his past medical, surgical, social and family history reviewed from the nursing note. Hx Anticoagulant Therapy: Yes (Plavix) Arthritis: Yes (2013) Blood Disorders: No Heart Rhythm Problems: Yes Cancer: No Cardiac Catheterization: No Cardiovascular Problems: Yes (cad, cabg) High Cholesterol: Yes Congestive Heart Failure: No Cerebrovascular Accident: Yes (2015) Coronary Artery Disease: Yes Diabetes: No Diminished Hearing: Yes (Hard of hearing) Endocrine: No Gastrointestinal Disorders: Yes (GERD) GERD: Yes Genitourinary: Yes (BPH) Hiatal Hernia: Yes Hypertension: Yes Immune Disorder: No Musculoskeletal: Yes Neurologic: Yes (CVA 1.5 years ago ) Psychiatric: No Reproductive: No Respiratory: Yes (copd) Thyroid Disease: Yes Triglycerides - High: Yes Past Surgical History Coronary Artery Bypass Graft: No Tonsillectomy: Yes Other Surgery: Yes ("stroke surgery" 2015) Social History Alcohol Use: No Tobacco Use: No (QUIT) Substance Use: No Allergies-Medications (Allergen,Severity, Reaction): Coded Allergies: wheat (Unverified Allergy, Intermediate, Rash, 12/06/17) Comments List of his allergies reviewed from the nursing note. Reported Meds & Prescriptions Reported Meds & Active Scripts Active Colace (Docusate Sodium) 100 Mg Capsule 100 Mg PO BID Hydrocodone-Acetaminophen 5-325 mg Tab 1 Tab PO Q6H PRN Prednisone 20 Mg Tab 20 Mg PO BID 3 Days Robaxin (Methocarbamol) 500 Mg Tab 500 Mg PO TID PRN Aspirin EC (Aspirin) 81 Mg Tabdr 81 Mg PO DAILY Reported Plavix (Clopidogrel Bisulfate) 75 Mg Tab 75 Mg PO DAILY Multiple Vitamin 1 Tab 1 Tab PO DAILY Omeprazole 20 Mg Tab 20 Mg PO BIDAC Terazosin (Terazosin HCl) 2 Mg Cap 2 Mg PO HS Simvastatin 20 Mg Tab 20 Mg PO DAILY Narrative Medication List of his home medications reviewed from the nursing note. Review of Systems Except as stated in HPI: all other systems reviewed are Neg Musculoskeletal: Positive: Edema, Pain Physical Exam Narrative GENERAL: Awake, alert, elderly, no obvious distress SKIN: Focused skin assessment warm/dry. HEAD: Atraumatic. Normocephalic. EYES: Pupils equal and round. No scleral icterus. No injection or drainage. ENT: No nasal bleeding or discharge. Mucous membranes pink and moist. NECK: Trachea midline. No JVD. CARDIOVASCULAR: Regular rate and rhythm. No murmur appreciated. RESPIRATORY: No accessory muscle use. Clear to auscultation. Breath sounds equal bilaterally. GASTROINTESTINAL: Abdomen soft, non-tender, nondistended. Hepatic and splenic margins not palpable. MUSCULOSKELETAL: No obvious deformities. No clubbing. No cyanosis. No edema. Left foot and ankle is edematous with some pitting edema. Patient is tender over the lateral malleolus and lateral aspect of his foot. NEUROLOGICAL: Awake and alert. No obvious cranial nerve deficits. Motor grossly within normal limits. Normal speech. PSYCHIATRIC: Appropriate mood and affect; insight and judgment normal. Data Data Last Documented VS Orders Orders Ankle, Complete ([id number]) (12/22/17 ) Ct Foot W/O Contrast (12/22/17 ) Acetamin-Hydrocod 325-5 Mg ([place]ar[place] 5-325 (12/22/17 13:30) Complete Blood Count With Diff (12/22/17 13:24) Basic Metabolic Panel (Bmp) (12/22/17 13:24) C-Reactive Protein (Crp) (12/22/17 13:24) Uric Acid (12/22/17 13:24) Ed Discharge Order (12/22/17 14:54) Labs Laboratory Tests Test 12/22/17 13:40 White Blood Count 10.0 TH/MM3 Red Blood Count 4.35 MIL/MM3 Hemoglobin 10.9 GM/DL Hematocrit 33.9 % Mean Corpuscular Volume 78.0 FL Mean Corpuscular Hemoglobin 25.0 PG Mean Corpuscular Hemoglobin Concent 32.0 % Red Cell Distribution Width 20.4 % Platelet Count 300 TH/MM3 Mean Platelet Volume 7.6 FL Neutrophils (%) (Auto) 69.7 % Lymphocytes (%) (Auto) 22.0 % Monocytes (%) (Auto) 7.1 % Eosinophils (%) (Auto) 1.0 % Basophils (%) (Auto) 0.2 % Neutrophils # (Auto) 7.0 TH/MM3 Lymphocytes # (Auto) 2.2 TH/MM3 Monocytes # (Auto) 0.7 TH/MM3 Eosinophils # (Auto) 0.1 TH/MM3 Basophils # (Auto) 0.0 TH/MM3 CBC Comment DIFF FINAL Differential Comment Blood Urea Nitrogen 12 MG/DL Creatinine 1.26 MG/DL Random Glucose 81 MG/DL Calcium Level 8.8 MG/DL Uric Acid 6.9 MG/DL Sodium Level 142 MEQ/L Potassium Level 3.9 MEQ/L Chloride Level 112 MEQ/L Carbon Dioxide Level 22.6 MEQ/L Anion Gap 7 MEQ/L Estimat Glomerular Filtration Rate 55 ML/MIN C-Reactive Protein 0.83 MG/DL MDM Medical Decision Making Medical Screen Exam Complete: Yes Emergency Medical Condition: Yes Medical Record Reviewed: Yes Interpretation(s) Last Impressions Ankle X-Ray 12/22/17 0000 Signed Impressions: Service Date/Time: Friday, December 22, 2017 11:52 - CONCLUSION: Soft tissue swelling. No fracture. Radiopaque foreign body as above thought to be the small piece of wire Tay Bah MD FACR Differential Diagnosis Osteoarthritis, gout Narrative Course 2:42 PM blood test results are back. CRP slightly elevated but uric acid and rest of the blood test results are within acceptable limits. There was an x- ray of the ankle and foot ordered from triage. It was read by the radiologist as a possible foreign body on the plantar aspect of the foot. I inspected the foot myself and did not see any puncture wound or any signs of infection are discharge. I ordered a CAT scan of the ankle and foot which shows osteoporosis and soft tissue swelling. There is no joint effusion. The CT scan does not mention anything about the FB. I have given him a dose of hydrocodone and Motrin. I will discharge him home on anti-inflammatory. Procedures EKG Prior to Arrival: No Diagnosis Primary Impression: Ankle pain Qualified Codes: M25.572 - Pain in left ankle and joints of left foot Additional Impressions: Ankle swelling Qualified Codes: M25.472 - Effusion, left ankle Arthritis Additional Instructions: Return to the ER if condition worsens or any other new concerns. Otherwise follow-up with your primary care physician. Take the medication as per the prescription direction. Keep the leg elevated above the heart level. Apply warm alternating with cold compresses Med/Other Pt SpecificInfo: Prescription(s) given Scripts Docusate Sodium (Colace) 100 Mg Capsule 100 MG PO BID for Prevent Constipation, #6 CAP 0 Refills Prov: Cheli Jimenez MD 12/22/17 Hydrocodone-Acetaminophen (Hydrocodone-Acetaminophen) 5-325 mg Tab 1 TAB PO Q6H Y for PAIN, #10 TAB 0 Refills Prov: Cheli Jimenez MD 12/22/17 Prednisone (Prednisone) 20 Mg Tab 20 MG PO BID for 3 Days, #6 TAB 0 Refills Prov: Cheil Jimenez MD 12/22/17 Disposition: 01 DISCHARGE HOME Condition: Stable Cheli Jimenez MD Dec 22, 2017 13:09
[2017-12-22] MEDS ORDERED: ACETAMINOPHEN/HYDROcodone 325 MG/5 MG TAB PO ONE (13:30)
[2017-12-22 14:04] LABS: BASOPHIL % 0.2 % (0.0-2.0); EOSINOPHIL # 0.1 TH/MM3 (0-0.4); HEMATOCRIT 33.9 % (39.0-51.0); HEMOGLOBIN 10.9 GM/DL (13.0-17.0); LYMPHOCYTE # 2.2 TH/MM3 (1.0-4.8); MEAN PLATELET VOLUME 7.6 FL (7.0-11.0); MONO % 7.1 % (0.0-8.0); MONOCYTE # 0.7 TH/MM3 (0-0.9); NEUT % 69.7 % (16.0-70.0); PLATELET COUNT 300 TH/MM3 (150-450); RED BLOOD COUNT 4.35 MIL/MM3 (4.50-5.90); RED CELL DISTRIBUTION WIDTH 20.4 % (11.6-17.2)
[2017-12-22 14:30] LABS: BICARBONATE 22.6 MEQ/L (21.0-32.0); C-REACTIVE PROTEIN 0.83 MG/DL (0.00-0.30); CALCIUM 8.8 MG/DL (8.5-10.1); CREATININE 1.26 MG/DL (0.60-1.30)
--- NOTE | 2017-12-22 14:37 | RADRPT ---
EXAM DATE/TIME: 12/22/2017 14:01 [facility] COMPARISON: No previous studies available for comparison. INDICATIONS : Left ankle pain RADIATION DOSE: 4.77 CTDIvol (mGy) MEDICAL HISTORY : Cerebrovascular disease. Cardiovascular disease Hypertension. SURGICAL HISTORY : None. ENCOUNTER: Initial ACUITY: 3 days PAIN SCALE: 7/10 LOCATION: Left ankle TECHNIQUE: Volumetric scanning of the foot was performed. Using automated exposure control and adjustment of th e mA and/or kV according to patient size, radiation dose was kept as low as reasonably achievable to obtain optimal diagnostic quality images. DICOM format image data is available electronically for re view and comparison. FINDINGS: There is no acute fracture of the ankle. Diffuse osteoporosis is noted. Anterior and posterior taloca lcaneal bony fusion is noted. Plantar and Achilles calcaneal spurring is noted. Diffuse soft tissue s welling is noted. CONCLUSION: 1. No acute fracture or dislocation. 2. Diffuse osteoporosis. 3. Diffuse soft tissue swelling. 4. Anterior and posterior talocalcaneal bony fusion. 5. Plantar and Achilles calcaneal spurring. Olvin Stern MD on December 22, 2017 at 14:28 Board Certified Radiologist. This report was verified electronically.
[2017-12-22] MEDS ORDERED: HYDR-3516 PO (14:47)
[2017-12-22] MEDS ORDERED: COLA100C5 PO (14:47)
[2017-12-22] MEDS ORDERED: PRED20 PO (14:47)
== END 2017-12-22 14:59 | disposition home or self-care (01) ==
LOC: NEPD 10:58
DX: M25.572 Pain in left ankle and joints of left foot (principal); M25.472 Effusion, left ankle; M19.90 Unspecified osteoarthritis, unspecified site; M81.0 Age-related osteoporosis without current pathological fracture; I10 Essential (primary) hypertension; I25.10 Atherosclerotic heart disease of native coronary artery without angina pectoris; J44.9 Chronic obstructive pulmonary disease, unspecified; E78.2 Mixed hyperlipidemia; N40.0 Benign prostatic hyperplasia without lower urinary tract symptoms; Z86.73 Personal history of transient ischemic attack (TIA), and cerebral infarction without residual deficits; Z79.02 Long term (current) use of antithrombotics/antiplatelets; Z79.899 Other long term (current) drug therapy
CPT/HCPCS: 73610; 73700; 80048; 84550; 85025; 86140

== ENCOUNTER 2018-01-02 08:58 | Emergency (ER) | payer OTHER, MEDICARE ==
[~2018-01-02] VITALS: Ht 167.6 cm; Wt 85.0 kg
[~2018-01-02 08:58] MED LIST changes: +COLA100C5 PO; +HYDR-3516 PO; +PRED20 PO
[2018-01-02 09:00] VITALS: BP 130/66; TEMP 97.2; O2SAT 100
[2018-01-02] MEDS ORDERED: methylPREDNISolone SOD SUCC 125 MG/2 ML VIAL IM ONE (09:30)
[2018-01-02] MEDS ORDERED: methylPREDNISolone SOD SUCC 125 MG/2 ML VIAL IV PUSH ONE (09:30)
--- NOTE | 2018-01-02 09:47 | PD ---
HPI Chief Complaint: Pain: Acute or Chronic Time Seen by Provider: 09:11 Travel History International Travel<30 days: No Contact w/Intl Traveler<30days: No Traveled to known affect area: No History of Present Illness HPI Patient is an 82-year-old male presenting to emerge department for evaluation of right foot pain. Patient states he has had pain in his right foot for the last several days. Pain is a 7 out of 10, and occurs when he attempts to walk on his foot. He denies any injury or trauma. He denies any numbness, tingling , weakness. The pain is localized to the ball of his foot radiating to the arch. He also reports bilateral shoulder pain, bilateral knee pain. Patient states that he got up earlier this morning and due to the pain in his foot he fell backwards. He denies any head injury or loss of consciousness. Patient states that he was given muscle relaxers and pain medication a few weeks ago but the pain persists. He denies any other complaints at this time, no chest pain, no shortness of breath, no fever, no chills, no abdominal pain. PFSH Past Medical History Hx Anticoagulant Therapy: Yes (Plavix) Arthritis: Yes (2013) Heart Rhythm Problems: Yes High Cholesterol: Yes Cerebrovascular Accident: Yes (2015) Coronary Artery Disease: Yes Diminished Hearing: Yes (Hard of hearing) GERD: Yes Genitourinary: Yes (BPH) Hiatal Hernia: Yes Hypertension: Yes Musculoskeletal: Yes Neurologic: Yes (CVA 1.5 years ago ) Thyroid Disease: Yes Triglycerides - High: Yes Past Surgical History Coronary Artery Bypass Graft: No Tonsillectomy: Yes Other Surgery: Yes ("stroke surgery" 2015) Social History Alcohol Use: No Tobacco Use: No (QUIT) Substance Use: No Allergies-Medications (Allergen,Severity, Reaction): Coded Allergies: wheat (Unverified Allergy, Intermediate, Rash, 12/06/17) Reported Meds & Prescriptions Reported Meds & Active Scripts Active Colace (Docusate Sodium) 100 Mg Capsule 100 Mg PO BID Hydrocodone-Acetaminophen 5-325 mg Tab 1 Tab PO Q6H PRN Prednisone 20 Mg Tab 20 Mg PO BID 3 Days Robaxin (Methocarbamol) 500 Mg Tab 500 Mg PO TID PRN Aspirin EC (Aspirin) 81 Mg Tabdr 81 Mg PO DAILY Reported Plavix (Clopidogrel Bisulfate) 75 Mg Tab 75 Mg PO DAILY Multiple Vitamin 1 Tab 1 Tab PO DAILY Omeprazole 20 Mg Tab 20 Mg PO BIDAC Terazosin (Terazosin HCl) 2 Mg Cap 2 Mg PO HS Simvastatin 20 Mg Tab 20 Mg PO DAILY Review of Systems Except as stated in HPI: all other systems reviewed are Neg HENT: No: Headaches Cardiovascular: No: Chest Pain or Discomfort Respiratory: No: Shortness of Breath Musculoskeletal: Positive: Myalgias, Arthralgias, Pain Neurologic: No: Weakness, Focal Abnormalities Physical Exam Narrative GENERAL: Well-developed, well-nourished, alert elderly gentleman. Presenting in no acute distress. SKIN: Warm and dry. HEAD: Atraumatic. Normocephalic. EYES: Pupils equal and round. No scleral icterus. No injection or drainage. ENT: No nasal bleeding or discharge. Mucous membranes pink and moist. NECK: Trachea midline. No JVD. CARDIOVASCULAR: Regular rate and rhythm. RESPIRATORY: No accessory muscle use. Clear to auscultation. Breath sounds equal bilaterally. GASTROINTESTINAL: Abdomen soft, non-tender, nondistended. Hepatic and splenic margins not palpable. MUSCULOSKELETAL: Extremities without clubbing, cyanosis, or edema. No obvious deformities. Tenderness to palpation to the plantar aspect of the right foot from the ball to the mid arch. NEUROLOGICAL: Awake and alert. No obvious cranial nerve deficits. Motor grossly within normal limits. Five out of 5 muscle strength in the arms and legs. Normal speech. PSYCHIATRIC: Appropriate mood and affect; insight and judgment normal. Data Data Last Documented VS Vital Signs Date Time Temp Pulse Resp B/P (MAP) Pulse Ox O2 Delivery O2 Flow Rate FiO2 01/02/18 13:23 67 18 132/76 (94) 97 Room Air 01/02/18 09:00 97.2 Orders Orders Foot, Complete ([id number]) (01/02/18 ) Westergren Sedimentation Rate (01/02/18 09:21) C-Reactive Protein (Crp) (01/02/18 09:21) Basic Metabolic Panel (Bmp) (01/02/18 09:21) Complete Blood Count With Diff (01/02/18 09:21) Methylprednisolone So Succ Inj (Solumedr (01/02/18 09:30) Methylprednisolone So Succ Inj (Solumedr (01/02/18 09:30) Iv Access Insert/Monitor (01/02/18 09:27) Consult Pt Eval & Treat (01/02/18 13:17) Case Management Consult (01/02/18 ) Mri Foot W&W/O Contrast (01/02/18 ) Diet Regular Basic (01/02/18 Dinner) Gadodiamide Pf Inj (Omniscan Pf Inj) (01/02/18 16:00) Labs Laboratory Tests Test 01/02/18 10:01 White Blood Count 10.8 TH/MM3 Red Blood Count 4.26 MIL/MM3 Hemoglobin 10.5 GM/DL Hematocrit 32.6 % Mean Corpuscular Volume 76.5 FL Mean Corpuscular Hemoglobin 24.5 PG Mean Corpuscular Hemoglobin Concent 32.1 % Red Cell Distribution Width 19.5 % Platelet Count 293 TH/MM3 Mean Platelet Volume 7.5 FL Neutrophils (%) (Auto) 76.4 % Lymphocytes (%) (Auto) 14.5 % Monocytes (%) (Auto) 8.8 % Eosinophils (%) (Auto) 0.1 % Basophils (%) (Auto) 0.2 % Neutrophils # (Auto) 8.2 TH/MM3 Lymphocytes # (Auto) 1.6 TH/MM3 Monocytes # (Auto) 0.9 TH/MM3 Eosinophils # (Auto) 0.0 TH/MM3 Basophils # (Auto) 0.0 TH/MM3 CBC Comment DIFF FINAL Differential Comment Erythrocyte Sedimentation Rate 85 mm/hr Blood Urea Nitrogen 14 MG/DL Creatinine 1.45 MG/DL Random Glucose 112 MG/DL Calcium Level 9.1 MG/DL Sodium Level 137 MEQ/L Potassium Level 3.7 MEQ/L Chloride Level 105 MEQ/L Carbon Dioxide Level 23.6 MEQ/L Anion Gap 8 MEQ/L Estimat Glomerular Filtration Rate 46 ML/MIN C-Reactive Protein 6.90 MG/DL MDM Medical Decision Making Medical Screen Exam Complete: Yes Emergency Medical Condition: Yes Medical Record Reviewed: Yes Interpretation(s) Vital Signs Date Time Temp Pulse Resp B/P (MAP) Pulse Ox O2 Delivery O2 Flow Rate FiO2 01/02/18 13:23 67 18 132/76 (94) 97 Room Air 01/02/18 09:52 20 01/02/18 09:00 97.2 84 20 130/66 (87) 100 Last Impressions Foot X-Ray 01/02/18 0000 Signed Impressions: Service Date/Time: Tuesday, January 02, 2018 09:36 - CONCLUSION: Mild degenerative changes and minimal vascular calcifications. Tay Bah MD FACR Foot MRI 01/02/18 0000 Signed Impressions: Service Date/Time: Tuesday, January 02, 2018 15:49 - CONCLUSION: Negative for osteomyelitis, occult fracture or edema. Tay Bah MD FACR Laboratory Tests Test 01/02/18 10:01 White Blood Count 10.8 TH/MM3 Red Blood Count 4.26 MIL/MM3 Hemoglobin 10.5 GM/DL Hematocrit 32.6 % Mean Corpuscular Volume 76.5 FL Mean Corpuscular Hemoglobin 24.5 PG Mean Corpuscular Hemoglobin Concent 32.1 % Red Cell Distribution Width 19.5 % Platelet Count 293 TH/MM3 Mean Platelet Volume 7.5 FL Neutrophils (%) (Auto) 76.4 % Lymphocytes (%) (Auto) 14.5 % Monocytes (%) (Auto) 8.8 % Eosinophils (%) (Auto) 0.1 % Basophils (%) (Auto) 0.2 % Neutrophils # (Auto) 8.2 TH/MM3 Lymphocytes # (Auto) 1.6 TH/MM3 Monocytes # (Auto) 0.9 TH/MM3 Eosinophils # (Auto) 0.0 TH/MM3 Basophils # (Auto) 0.0 TH/MM3 CBC Comment DIFF FINAL Differential Comment Erythrocyte Sedimentation Rate 85 mm/hr Blood Urea Nitrogen 14 MG/DL Creatinine 1.45 MG/DL Random Glucose 112 MG/DL Calcium Level 9.1 MG/DL Sodium Level 137 MEQ/L Potassium Level 3.7 MEQ/L Chloride Level 105 MEQ/L Carbon Dioxide Level 23.6 MEQ/L Anion Gap 8 MEQ/L Estimat Glomerular Filtration Rate 46 ML/MIN C-Reactive Protein 6.90 MG/DL Differential Diagnosis Arthritis versus muscle strain versus muscle spasm versus polymyalgia rheumatica versus other Narrative Course Patient is an 82-year-old male presenting to emergency department for evaluation of multiple areas of joint pain. Patient was seen and evaluated the emergency department twice with similar complaints recently. The most recent admission showed a mildly elevated CRP. Patient was given muscle relaxer and pain medication. At this point we will obtain labs, sed rate, CRP. The bilateral pain in his shoulders and neck as well as his knees could be indicative of polymyalgia rheumatica. Patient will be given a dose of IV Solu- Medrol now. CBC with a mild anemia, this is stable when compared to prior. Chemistry with a creatinine of 1.45 CRP is now 6.9, up from 0.83 on 22 December X-ray of the right foot shows no acute abnormalities. Sed rate is 85. The diagnosis of polymyalgia rheumatica can be made if the sedimentation rate is greater than 40 according to up-to-date. Presentation is consistent with that. The patient is also in the right age group. Patient was unable to ambulate due to pain in his right foot. Due to patient's inability to ambulate, the hospitalist was paged. Dr. Recio requested PT eval as well as case management consult prior to admitting him. Pending the evaluation from physical therapy patient will either be discharged home with home health or admitted Patient was evaluated by physical therapist. On exam she noticed a 2 mm scab to the lateral aspect of his right ankle. On the anterior aspect of his right foot just distal to the ankle she palpated what felt like crepitus. MRI of the foot has been ordered and pending. MRI of the right foot is negative for acute abnormality. PT notes reviewed, patient will be discharged home with a jagdeep-sized walker. Patient was educated on need for follow-up at the [facility] for further evaluation and management. He was encouraged to return to emergency department for any new worsening symptoms. Patient stable for discharge. Diagnosis Primary Impression: Polymyalgia rheumatica Referrals: Primary Care Physician 3 days Patient Instructions: General Instructions, Polymyalgia Rheumatica (ED) Additional Instructions: Follow-up at the [facility] clinic in 3-7 days Take medications as directed Apply warm heat to the affected areas, continue range of motion exercises, avoid bed rest Return to emergency department for any new or worsening symptoms Med/Other Pt SpecificInfo: Prescription(s) given Scripts Prednisone (Prednisone) 10 Mg Tab 10 MG PO DAILY for 10 Days, #10 TAB 0 Refills Prov: Judy Galeano 01/02/18 Disposition: 01 DISCHARGE HOME Condition: Stable Judy Galeano Jan 02, 2018 09:47
--- NOTE | 2018-01-02 10:02 | RADRPT ---
EXAM DATE/TIME: 01/02/2018 09:36 [facility] COMPARISON: No previous studies available for comparison. INDICATIONS : Pain in entire foot. MEDICAL HISTORY : Arthritis. SURGICAL HISTORY : None. ENCOUNTER: Initial ACUITY: 2 days PAIN SCORE: 10/10 LOCATION: Entire foot. FINDINGS: Three view examination of the right foot demonstrates no soft tissue swelling, dislocation, or fractu re. The tarsal bones appear intact. The interphalangeal and metatarsophalangeal joints are intact. The calcaneus is intact. Bony mineralization is normal. CONCLUSION: Mild degenerative changes and minimal vascular calcifications. Tay Bah MD FACR on January 02, 2018 at 9:59 Board Certified Radiologist. This report was verified electronically.
[2018-01-02 10:22] LABS: AUTOMATED NEUTROPHIL # 8.2 TH/MM3 (1.8-7.7); BASOPHIL % 0.2 % (0.0-2.0); EOSINOPHIL % 0.1 % (0.0-4.0); HEMATOCRIT 32.6 % (39.0-51.0); HEMOGLOBIN 10.5 GM/DL (13.0-17.0); LYMPH % 14.5 % (9.0-44.0); LYMPHOCYTE # 1.6 TH/MM3 (1.0-4.8); MEAN CELL VOLUME 76.5 FL (80.0-100.0); MEAN CORPUSCULAR HEMOGLOBIN 24.5 PG (27.0-34.0); MEAN CORPUSCULAR HGB CONC 32.1 % (32.0-36.0); MEAN PLATELET VOLUME 7.5 FL (7.0-11.0); MONO % 8.8 % (0.0-8.0); MONOCYTE # 0.9 TH/MM3 (0-0.9); NEUT % 76.4 % (16.0-70.0); PLATELET COUNT 293 TH/MM3 (150-450); RED BLOOD COUNT 4.26 MIL/MM3 (4.50-5.90); RED CELL DISTRIBUTION WIDTH 19.5 % (11.6-17.2); WHITE BLOOD COUNT 10.8 TH/MM3 (4.0-11.0)
[2018-01-02 10:36] LABS: BICARBONATE 23.6 MEQ/L (21.0-32.0); C-REACTIVE PROTEIN 6.9 MG/DL (0.00-0.30); CALCIUM 9.1 MG/DL (8.5-10.1); CREATININE 1.45 MG/DL (0.60-1.30)
[2018-01-02 13:23] VITALS: BP 132/76; PULSE 67; RESP 18; O2SAT 97
[2018-01-02] MEDS ORDERED: GADODIAMIDE PF 287 MG/ML 20 ML VIAL (for RAD MRI) IV PUSH ONE (16:00)
--- NOTE | 2018-01-02 16:55 | RADRPT ---
EXAM DATE/TIME: 01/02/2018 15:49 [facility] COMPARISON: FOOT RIGHT COMPLETE ([id number]), January 02, 2018, 9:36. INDICATIONS : Osteomyelitis. CONTRAST: 17 cc Omniscan (gadodiamide) IV MEDICAL HISTORY : Hypertension. Myocardial infarction. Gastroesophageal reflux disease. SURGICAL HISTORY : CABG Carotid endarterectomy. ENCOUNTER: Initial ACUITY: 2 day PAIN SCORE: 1/10 LOCATION: head TECHNIQUE: Multiplanar, multisequence MRI examination was performed without contrast and after the intravenous a dministration of gadolinium. FINDINGS: BONE/CARTILAGE: Bone marrow signal is homogeneous. Articular cartilage signal is within normal limits. TENDONS: All of the visualized tendons are intact. MISCELLANEOUS: Plantar aponeurosis is intact. Sinus tarsi is within normal limits. POST-CONTRAST: There are no abnormal areas of enhancement on the post-contrast images. Mild venous engorgement is p resent. CONCLUSION: Negative for osteomyelitis, occult fracture or edema. Tay Bah MD FACR on January 02, 2018 at 16:52 Board Certified Radiologist. This report was verified electronically.
[2018-01-02] MEDS ORDERED: PRED10 PO (17:13)
[2018-01-02 18:39] VITALS: BP 120/72; PULSE 62; RESP 18; O2SAT 98
== END 2018-01-02 21:00 | disposition home or self-care (01) ==
LOC: NEPD 08:58
DX: M35.3 Polymyalgia rheumatica (principal); E78.00 Pure hypercholesterolemia, unspecified; K21.9 Gastro-esophageal reflux disease without esophagitis; I10 Essential (primary) hypertension; I25.10 Atherosclerotic heart disease of native coronary artery without angina pectoris; Z79.02 Long term (current) use of antithrombotics/antiplatelets; Z87.891 Personal history of nicotine dependence
CPT/HCPCS: 73630; 73720; 80048; 85025; 85652; 86140; 96374; 97163; 99285; A9579; J2930